=== PATIENT | female | born 1960 | race Caucasian/White ===

== ENCOUNTER 2016-08-14 17:18 | Inpatient (IN) | payer BC ==
[~2016-08-14] VITALS: Ht 172.7 cm; Wt 65.7 kg
[~2016-08-14 17:18] MED LIST: CIPR-255 PO; CLIN300C10 PO; VANC1CAP19 PO
[2016-08-14] MEDS ORDERED: SODIUM CHLORIDE 0.9% 1000ML 1,000 ML IV STA (17:36)
[2016-08-14 18:17] LABS: BASO % 0.1 %; BASO ABS # 0.02 K/uL (0-0.2); COMPLETE YES; EOS % 0.3 %; HEMATOCRIT 37.6 % (37-47); IG% 0.2 %; LYMPH % 8.9 %; LYMPH ABS # 1.55 K/uL (1.2-3.4); MEAN CELL VOLUME 88.3 fL (80-100); MEAN CORPUSCULAR HEMOGLOBIN 30.3 pg (25-34); MEAN CORPUSCULAR HGB CONC 34.3 g/dl (32-36); MEAN PLATELET VOLUME 8.7 fL (7.4-10.4); MONO % 7.9 %; NEUT % 82.6 %; PLATELET COUNT 293 K/uL (130-400); RED BLOOD COUNT 4.26 M/uL (4.2-5.4); WHITE BLOOD COUNT 17.34 K/uL (4.8-10.8)
[2016-08-14 18:24] LABS: URINE APPEARANCE CLEAR (CLEAR); URINE BILIRUBIN NEG (NEG); URINE COLOR YELLOW; URINE EPITHELIAL CELL AUTO 0-5 /lpf (0-5); URINE NITRITE NEG (NEG); URINE SPECIFIC GRAVITY 1.007 (1.000-1.030); UROBILINOGEN NEG (NEG); ZZUR CULT IF INDIC CLEAN CATCH NO
[2016-08-14 18:36] LABS: MANUAL MICROSCOPIC REQUIRED? NO; REVIEW REQ? NO
[2016-08-14 18:36] LABS: CREATININE 0.73 mg/dl (0.60-1.20); POTASSIUM 3.4 mmol/L (3.5-5.1)
[2016-08-14] MEDS ORDERED: ERTAPENEM 1 GM ADDVIAL IV ONE (20:15)
[2016-08-14] MEDS ORDERED: MoRPHine SULFATE 4 MG/ML 1 ML CARP\\VIAL IV PRN (21:15)
[2016-08-14] MEDS ORDERED: ONDANSETRON INJ 2 MG/ML 2 ML VIAL IV PRN (21:15)
[2016-08-14 21:33] VITALS: O2SAT 99; Ht 172.7 cm; Wt 65.7 kg
--- NOTE | 2016-08-14 21:57 | History and Physical ---
History & Physical Date & Time of Service: Aug 14, 2016 at 21:43 Chief Complaint: Abdominal Pain:Doc Sent To Er Primary Care Physician: Ada Lynch DO History of Present Illness Source: patient 55 y/o F w/Hx recurrent sigmoid diverticulitis, C-diff colitis - presents with one day of LLQ abdominal pain associated with loose stool. Denies hematochezia. Denies N/V or fevers. Last admitted with diverticulitis in 2014. Last episode of C-diff was in 2011 and believes this may have been related to Cipro use. Past Medical/Surgical History Medical Problems: (1) Acute urinary tract infection Status: Resolved (2) Diverticulitis 3) C-diff colitis Family History No pertinent family history Social History Smoking Status: Former Smoker Marital Status: Housing status: lives with family Occupational Status: employed Immunizations History of Influenza Vaccine: No History of Tetanus Vaccine?: Yes History of Pneumococcal: No History of Hepatitis B Vaccine: No Multi-Drug Resistant Organisms History of MDRO: No Allergies Coded Allergies: Iodinated Diagnostic Agents (Verified Allergy, Unknown, ACHY,NAUSEA,WEAK, 07/17/15) Penicillins (Verified Allergy, Unknown, 07/17/15) Ciprofloxacin (Verified Adverse Reaction, Intermediate, "GET C DIFF IMMEDIATELY", 08/14/16) Metronidazole (Verified Adverse Reaction, Intermediate, "PHYSICALLY UNCOMFORTABLE", 08/14/16) Home Medications No Active Prescriptions or Reported Meds Review of Systems Constitutional: No chills, No fever, No sweats Eyes: No eye pain, No worsening of vision ENT: No hearing loss, No nasal symptoms, No unusual epistaxis Respiratory: No cough, No sputum, No wheezing Cardiovascular: No PND, No chest pain, No orthopnea Abdomen: + diarrhea, + pain, No nausea, No vomiting Musculoskeletal: No joint pain, No muscle pain Genitourinary - Female: No dysuria, No urinary frequency, No urinary urgency Neurologic: No memory loss, No paralysis, No weakness Psychiatric: No depression symptoms Endocrine: No fatigue Hematologic / Lymphatic: No abnormal bleeding/bruising Integumentary: No rash Allergic / Immunologic: No environmental allergies Physical Exam Vital Signs Date Time Temp Pulse Resp B/P Pulse Ox O2 Delivery O2 Flow Rate FiO2 08/14/16 21:33 99 Room Air 08/14/16 20:39 78 18 106/63 97 Room Air 08/14/16 17:26 37.1 99 20 94/59 96 Room Air General Appearance: WD/WN, no apparent distress Head: normocephalic, atraumatic Eyes: normal inspection, EOMI ENT: normal ENT inspection, hearing grossly normal, TMs normal, pharynx normal Neck: supple, no JVD Respiratory/Chest: chest non-tender, lungs clear, normal breath sounds, no respiratory distress, no accessory muscle use Cardiovascular: regular rate, rhythm, no edema, no gallop, no JVD, no murmur, normal peripheral pulses Abdomen/GI: normal bowel sounds, soft, + tenderness (LLQ) Back: normal inspection, no CVA tenderness Extremities/Musculoskelatal: normal inspection, no calf tenderness, normal capillary refill, no pedal edema, normal range of motion 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, no motor/sensory deficits, alert, normal mood/affect, normal reflexes, oriented x 3 Skin: normal color, warm/dry, no rash Diagnostics Laboratory Results Results Past 24 Hours Test 08/14/16 17:55 08/14/16 17:59 08/14/16 21:41 Range/Units Urine Color YELLOW Urine Appearance CLEAR CLEAR Urine pH 6.0 4.5-7.5 Urine Specific [place] 1.007 1.000-1.030 Urine Protein NEG NEG Urine Glucose (UA) NEG NEG Urine Ketones NEG NEG Urine Occult Blood 2+ NEG Urine Nitrite NEG NEG Urine Bilirubin NEG NEG Urine Urobilinogen NEG NEG Urine Leukocyte Esterase TRACE NEG Urine WBC (Auto) 1-5 0-5 /hpf Urine RBC (Auto) 5-10 0-4 /hpf Urine Hyaline Casts (Auto) 0 0-5 /lpf Urine Epithelial Cells (Auto) 0-5 0-5 /lpf Urine Bacteria (Auto) NEG NEG Urine Test NEG NEG White Blood Count 17.34 4.8-10.8 K/uL Red Blood Count 4.26 4.2-5.4 M/uL Hemoglobin 12.9 12.0-16.0 g/dL Hematocrit 37.6 37-47 % Mean Corpuscular Volume 88.3 80-100 fL Mean Corpuscular Hemoglobin 30.3 25-34 pg Mean Corpuscular Hemoglobin Concent 34.3 32-36 g/dl Platelet Count 293 130-400 K/uL Mean Platelet Volume 8.7 7.4-10.4 fL Neutrophils (%) (Auto) 82.6 % Lymphocytes (%) (Auto) 8.9 % Monocytes (%) (Auto) 7.9 % Eosinophils (%) (Auto) 0.3 % Basophils (%) (Auto) 0.1 % Neutrophils # (Auto) 14.31 1.4-6.5 K/uL Lymphocytes # (Auto) 1.55 1.2-3.4 K/uL Monocytes # (Auto) 1.37 0.11-0.59 K/uL Eosinophils # (Auto) 0.05 0-0.5 K/uL Basophils # (Auto) 0.02 0-0.2 K/uL RDW Standard Deviation 41.2 36.4-46.3 fL RDW Coefficient of Variation 12.8 11.5-14.5 % Immature Granulocyte % (Auto) 0.2 % Immature Granulocyte # (Auto) 0.04 0.00-0.02 K/uL Sodium Level 136 136-145 mmol/L Potassium Level 3.4 3.5-5.1 mmol/L Chloride Level 99 98-107 mmol/L Carbon Dioxide Level 25 21-32 mmol/L Anion Gap 12.0 3-11 mmol/L Blood Urea Nitrogen 15 7-18 mg/dl Creatinine 0.73 0.60-1.20 mg/dl Est Creatinine Clear Calc Drug Dose 88.8 ml/min Estimated GFR () 108.2 Estimated GFR (Non- 93.4 BUN/Creatinine Ratio 20.0 10-20 Random Glucose 115 70-99 mg/dl Calcium Level 9.0 8.5-10.1 mg/dl Total Bilirubin 0.7 0.2-1 mg/dl Direct Bilirubin 0.2 0-0.2 mg/dl Aspartate Amino Transf (AST/SGOT) 18 15-37 U/L Alanine Aminotransferase (ALT/SGPT) 12 12-78 U/L Alkaline Phosphatase 73 45-117 U/L Total Protein 7.6 6.4-8.2 gm/dl Albumin 3.9 3.4-5.0 gm/dl Lipase 177 73-393 U/L Microbiology Results 08/14/16 C.difficile Toxin B Gene (PCR), Received Pending Diagnostic Radiology CT abdomen : Sigmoid diverticulitis Impression Assessment and Plan 55 y/o F w/Hx recurrent sigmoid diverticulitis, C-diff colitis - presents with one day of LLQ abdominal pain associated with loose stool. Denies hematochezia. Denies N/V or fevers. CT reveals Sigmoid diverticulitis. Pt does not tolerate Flagyl and may have developed C-diff due to Cipro use previously although she is not likely allergic - she also has a PCN allergy. Due to her multiple drug sensitivities she is admitted for IV Ertapenem. We will consult surgery as this is a 3rd recurrence fo diverticulitis. If she improves clinically and intervention is not indicated D/C with Bactrim is an option. NPO pending surgery consult. Full code - Heparin prophylaxis Total time for this admit including review of records, meds, imaging - discussion with ER MD and pt - 30 min Level of Care Med/Surg Advanced Directives Existing Advance Directive: No Existing Living Will: No Existing Power of Telecommunications Professional: No Resuscitation Status FULL RESUSCITATION VTE Prophylaxis VTE Risk Assessment Done? Y/N: Yes Risk Level: Low Given or contraindicated: Unfractionated heparin SQ
[2016-08-14 22:10] VITALS: BP 110/77; PULSE 92; TEMP 37.2; O2SAT 99
[2016-08-14] MEDS ORDERED: POTASSIUM CHLR 10 MEQ / WTR 10 MEQ in PREMIXED WATER 100 ML IV ONE (22:30)
[2016-08-14] MEDS: D5NSS + 20MEQ KCL 1,000 ML IV SCH (22:36)
[2016-08-14 22:41] LABS: PARTIAL THROMBOPLASTIN RATIO 1.2; PROTHROMBIN TIME (PATIENT) 10.9 SECONDS (9.0-12.0)
[2016-08-14 23:00] VITALS: BP 113/75; PULSE 92; TEMP 37.3; O2SAT 98
--- NOTE | 2016-08-15 01:22 | EMERGENCY ROOM VISIT NOTE ---
History Report prepared by Ruma: Daniel Tse Under the Supervision of: Dr. Damir Gaines D.O. First contact with patient: 17:30 Chief Complaint: ABDOMINAL PAIN Stated Complaint: ABDOMINAL PAIN:DOC SENT TO ER History of Present Illness The patient is a 55 year old female who presents to the Emergency Room with complaints of waxing and waning lower abdominal pain beginning one day prior to arrival. She currently rates her discomfort as a 6/10 in severity. The patient associates clear mucus in her stool with today's symptoms. She states her last bowel movement was a few hours ago, which consisted of light colored stool and clear mucus. The patient notes her last normal bowel movement was yesterday. She states she has a history of diverticulitis and colitis. The patient notes her symptoms today are similar to her episodes of diverticulitis and colitis. She states she was last treated for C. Diff in 2011. The patient notes she has a history an appendectomy. She denies recent antibiotic use. Pt denies headache , change in vision, fevers, chest pain, shortness of breath, nausea, vomiting, diarrhea, pain with urination, abnormal vaginal bleeding or discharge, and melena. It is noted the patient has a systolic blood pressure of 83 to 110 from previous records. 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 Review of Systems See HPI for pertinent positives & negatives. A total of 10 systems reviewed and were otherwise negative. Past Medical & Surgical Medical Problems: (1) Acute urinary tract infection (2) Diverticulitis Family History No pertinent family history Social History Smoking Status: Former Smoker Alcohol Use: none Marital Status: Occupation Status: employed Current/Historical Medications No Active Prescriptions or Reported Meds Allergies Coded Allergies: Iodinated Diagnostic Agents (Verified Allergy, Unknown, ACHY,NAUSEA,WEAK, 07/17/15) Penicillins (Verified Allergy, Unknown, 07/17/15) Ciprofloxacin (Verified Adverse Reaction, Intermediate, "GET C DIFF IMMEDIATELY", 08/14/16) Metronidazole (Verified Adverse Reaction, Intermediate, "PHYSICALLY UNCOMFORTABLE", 08/14/16) Physical Exam Vital Signs Date Time Temp Pulse Resp B/P Pulse Ox O2 Delivery O2 Flow Rate FiO2 08/14/16 20:39 78 18 106/63 97 Room Air 08/14/16 17:26 37.1 99 20 94/59 96 Room Air Physical Exam GENERAL: sitting up in bed, no acute distress, non-toxic EYE EXAM: normal conjunctiva OROPHARYNX: no exudate, no erythema, lips, buccal mucosa, and tongue normal and mucous membranes are moist NECK: supple, no nuchal rigidity, no adenopathy, non-tender LUNGS: Clear to auscultation. Normal chest wall mechanics HEART: no murmurs, S1 normal and S2 normal ABDOMEN: Tenderness to palpation in the infraumbilical region. Abdomen soft, normo-active bowel sounds, no masses, no rebound or guarding. BACK: Back is symmetrical on inspection and there is no deformity, no midline tenderness, no CVA tenderness. SKIN: no rashes and no bruising UPPER EXTREMITIES: upper extremities are grossly normal. LOWER EXTREMITIES: No pitting edema. NEURO EXAM: Normal sensorium, cranial nerves II-XII grossly intact, normal speech, no gross weakness of arms, no gross weakness of legs. Medical Decision & Procedures ER Provider Diagnostic Interpretation: CT ABDOMEN & PELVIS Revealed acute diverticulitis. Laboratory Results 08/14/16 17:59 Red Blood Count 4.26, Mean Corpuscular Volume 88.3, Mean Corpuscular Hemoglobin 30.3, Mean Corpuscular Hemoglobin Concent 34.3, Mean Platelet Volume 8.7, Neutrophils (%) (Auto) 82.6, Lymphocytes (%) (Auto) 8.9, Monocytes (%) (Auto) 7.9, Eosinophils (%) (Auto) 0.3, Basophils (%) (Auto) 0.1, Neutrophils # (Auto) 14.31, Lymphocytes # (Auto) 1.55, Monocytes # (Auto) 1.37, Eosinophils # (Auto) 0.05, Basophils # (Auto) 0.02 08/14/16 17:59 Test 08/14/16 17:55 08/14/16 17:59 Urine Color YELLOW Urine Appearance CLEAR (CLEAR) Urine pH 6.0 (4.5-7.5) Urine Specific [place] 1.007 (1.000-1.030) Urine Protein NEG (NEG) Urine Glucose (UA) NEG (NEG) Urine Ketones NEG (NEG) Urine Occult Blood 2+ (NEG) Urine Nitrite NEG (NEG) Urine Bilirubin NEG (NEG) Urine Urobilinogen NEG (NEG) Urine Leukocyte Esterase TRACE (NEG) Urine WBC (Auto) 1-5 /hpf (0-5) Urine RBC (Auto) 5-10 /hpf (0-4) Urine Hyaline Casts (Auto) 0 /lpf (0-5) Urine Epithelial Cells (Auto) 0-5 /lpf (0-5) Urine Bacteria (Auto) NEG (NEG) Urine Test NEG (NEG) White Blood Count 17.34 K/uL (4.8-10.8) Red Blood Count 4.26 M/uL (4.2-5.4) Hemoglobin 12.9 g/dL (12.0-16.0) Hematocrit 37.6 % (37-47) Mean Corpuscular Volume 88.3 fL (80-100) Mean Corpuscular Hemoglobin 30.3 pg (25-34) Mean Corpuscular Hemoglobin Concent 34.3 g/dl (32-36) Platelet Count 293 K/uL (130-400) Mean Platelet Volume 8.7 fL (7.4-10.4) Neutrophils (%) (Auto) 82.6 % Lymphocytes (%) (Auto) 8.9 % Monocytes (%) (Auto) 7.9 % Eosinophils (%) (Auto) 0.3 % Basophils (%) (Auto) 0.1 % Neutrophils # (Auto) 14.31 K/uL (1.4-6.5) Lymphocytes # (Auto) 1.55 K/uL (1.2-3.4) Monocytes # (Auto) 1.37 K/uL (0.11-0.59) Eosinophils # (Auto) 0.05 K/uL (0-0.5) Basophils # (Auto) 0.02 K/uL (0-0.2) RDW Standard Deviation 41.2 fL (36.4-46.3) RDW Coefficient of Variation 12.8 % (11.5-14.5) Immature Granulocyte % (Auto) 0.2 % Immature Granulocyte # (Auto) 0.04 K/uL (0.00-0.02) Prothrombin Time 10.9 SECONDS (9.0-12.0) Prothromb Time International Ratio 1.0 (0.9-1.1) Activated Partial Thromboplast Time 32.4 SECONDS (21.0-31.0) Partial Thromboplastin Ratio 1.2 Anion Gap 12.0 mmol/L (3-11) Est Creatinine Clear Calc Drug Dose 88.8 ml/min Estimated GFR () 108.2 Estimated GFR (Non- 93.4 BUN/Creatinine Ratio 20.0 (10-20) Calcium Level 9.0 mg/dl (8.5-10.1) Total Bilirubin 0.7 mg/dl (0.2-1) Direct Bilirubin 0.2 mg/dl (0-0.2) Aspartate Amino Transf (AST/SGOT) 18 U/L (15-37) Alanine Aminotransferase (ALT/SGPT) 12 U/L (12-78) Alkaline Phosphatase 73 U/L (45-117) Total Protein 7.6 gm/dl (6.4-8.2) Albumin 3.9 gm/dl (3.4-5.0) Lipase 177 U/L (73-393) Hepatitis C Antibody Screen NEG (NEG) Date/Time Source Procedure Growth Status 08/14/16 17:55 Stool C.difficile Toxin B Gene (PCR) - Final No C. difficile toxin B gene detected Complete Laboratory results per my review. Medications Administered Medications (Trade) Dose Ordered Sig/Jovan Route Start Time Stop Time Status Last Admin Dose Admin Sodium Chloride (Nss 1000ml) 1,000 ml @ 999 mls/hr Q1H1M STAT IV 08/14/16 17:36 08/14/16 18:36 DC 08/14/16 17:57 999 MLS/HR Ertapenem (Invanz Iv) 1 gm ONE ONCE IV 08/14/16 20:15 08/14/16 20:16 DC 08/14/16 20:32 1 GM ED Course ED COURSE: Vital signs were reviewed and showed hypertension. The patients medical record was reviewed The above diagnostic studies were performed and reviewed. ED treatments and interventions as stated above. 1734: The patient was evaluated in room C2B. A complete history and physical examination was performed. 1735: Ordered Sodium Chloride 1,000 ml @ 999 mls/hr IV. 1927: Reevaluated the patient at this time, and she is doing well. 1954: Reevaluated the patient and updater her. 2012: I spoke to Dr. Cook [facility] [place] (Infectious Disease) about the patient's case, and he recommended gicing the patient 1 gm Ertapenem. 2015: Ordered Ertapenem 1 gm IV. 2016: I spoke to ARTI Galarza (Hospitalist) about the patient's case, and he will follow the patient for further evaluation. 2018: Upon reevaluation, the patient is doing well.I discussed my findings with the patient and she understands and agrees with the treatment plan. Based on the patients age, coexisting illnesses, exam and lab findings the decision to treat as an inpatient was made. The patient remained stable while under my care. The patient will be evaluated for further management. Medical Decision Differential diagnoses includes but is not limited to gastritis, peptic ulcer disease, GERD, gallbladder disease, pancreatitis, small bowel obstruction, acute coronary syndrome, pericarditis, ischemic bowel, irritable bowel disease, irritable bowel syndrome, appendicitis, diverticulitis, malignancy, hernia, urinary tract infection, torsion, /ectopic , perforation, trauma, infectious. Patient is a 55 -year-old female who presents the ER for lower abdominal pain associated with nausea. Last bowel movement was earlier today. She has a history of colitis and C. difficile. No recent antibiotics. On abdominal examination does have tenderness in left lower quadrant. No significant fever. She is a leukocytosis of 17,000. BMP along with LFTs, bilirubin and lipase was unremarkable. UA was unremarkable. Urine was negative. CT of her abdomen pelvis shows acute diverticulitis. She notes that when she takes Cipro she gets C. difficile. She is unable to take Flagyl as his feet makes her very depressed and gives her an upset stomach. She also gets hives and penicillins. Following this I discussed case with ID who recommended ertapenem. I reviewed her chart and she was previously discharged on Cipro and Bactrim this was for colitis which appear to be more secondary to C. difficile. Based on the findings follow was reasonable for IV antibiotics overnight to make sure she is improving and further evaluation by infectious disease for appropriate antibiotic therapy as an outpatient. Consults Time Called: 2011 Consulting Physician: ARTI Barba (Infectious Disease) Returned Call: 2012 I spoke to ARTI Barba (Infectious Disease) about the patient's case, and he recommended gicing the patient 1 gm Ertapenem. Additional Consults: Time Called: 2014 Consulted Physician: ARTI Galarza (Hospitalist) Returned Call: 2015 Additional Comments: I spoke to ARTI Galarza (Hospitalist) about the patient's case, and he will follow the patient for further evaluation. Impression Primary Impression: Acute diverticulitis Scribe Attestation The scribe's documentation has been prepared under my direction and personally reviewed by me in its entirety. I confirm that the note above accurately reflects all work, treatment, procedures, and medical decision making performed by me. Departure Information Dispostion Being Evaluated By Hospitalist (ARTI Galarza (Hospitalist)) Prescriptions No Active Prescriptions or Reported Meds Referrals No Doctor, Assigned (PCP)
[2016-08-15] MEDS: D5NSS + 20MEQ KCL 1,000 ML IV SCH (06:01)
[2016-08-15] MEDS: HEPARIN SOD 5000 UNIT/0.5 ML CARP SQ SCH ×3 (06:03→21:40)
[2016-08-15 06:59] LABS: MEAN CELL VOLUME 88.2 fL (80-100); MEAN CORPUSCULAR HEMOGLOBIN 29.9 pg (25-34); MEAN CORPUSCULAR HGB CONC 33.9 g/dl (32-36); MEAN PLATELET VOLUME 8.7 fL (7.4-10.4); PLATELET COUNT 221 K/uL (130-400); RED BLOOD COUNT 3.74 M/uL (4.2-5.4); WHITE BLOOD COUNT 11.37 K/uL (4.8-10.8)
[2016-08-15 07:34] LABS: BUN/CREATININE RATIO 14.9 (10-20); CALCIUM 8.6 mg/dl (8.5-10.1); CREATININE 0.59 mg/dl (0.60-1.20); MAGNESIUM 2.2 mg/dl (1.8-2.4)
[2016-08-15 07:58] VITALS: BP 117/64; PULSE 79; TEMP 36.8; O2SAT 92
--- NOTE | 2016-08-15 07:59 | DIAGNOSTIC IMAGING REPORT ---
CT SCAN OF THE ABDOMEN AND PELVIS WITHOUT IV CONTRAST CLINICAL HISTORY: Lower abdominal pain. COMPARISON STUDY: Abdominal CT dated 07/17/2015. TECHNIQUE: CT scan of the abdomen and pelvis is performed from the lung bases to the proximal femora. Images are reviewed in the axial, sagittal, and coronal planes. IV contrast was not administered for this examination as per the referring clinician due to a reported history of contrast allergy. Note that the examination is suboptimal without oral and IV contrast. Automated dose control exposure was utilized. CT DOSE: 376.59 mGy.cm FINDINGS: Lung bases: The heart is normal in size and there is a moderate pericardial effusion. The lung bases are clear noting dependent atelectasis. Liver: The unenhanced liver is normal in size, contour, and attenuation. There is no intrahepatic biliary ductal dilatation. Gallbladder: Contracted. Spleen: Normal in size and attenuation. Pancreas: Unremarkable. Adrenal glands: Unremarkable. Kidneys: The unenhanced kidneys are normal in size and without hydronephrosis. There are small bilateral extrarenal pelvises. There are no renal calculi identified. There is no evidence of contour deforming renal mass lesion. Abdominal vasculature: The abdominal aorta is normal in course and caliber. Bowel: The small bowel and colon are normal in course and caliber. There is moderate sigmoid diverticulosis. There is wall thickening with pericolonic inflammation and fluid seen around the sigmoid colon in the left pelvis consistent with acute sigmoid diverticulitis. There is no clear evidence of diverticular abscess. Mild to moderate fecal retention is seen throughout the colon. The appendix is not identified and reported surgically absent. Peritoneum: There is no intraperitoneal free air. There is a small volume of minimally complex fluid in the cul-de-sac. Lymphadenopathy: None. Pelvic viscera: The bladder, uterus, and adnexa are normal as visualized. Skeletal structures: The skeletal structures are osteopenic. There is mild lumbosacral spondylosis. No lytic or blastic lesions are seen. IMPRESSION: 1. Findings are consistent with acute diverticulitis of the sigmoid colon. No intraperitoneal free air is seen and there is no evidence of organized abscess on this unenhanced examination. 2. There is a small volume of minimally complex fluid in the pelvis, likely on a reactive basis. 3. Moderate pericardial effusion, similar to the 07/17/2015 examination. 4. Additional findings as above. Electronically signed by: Sudhir Melchor M.D. 08/14/2016 6:34 PM Dictated Date/Time: 08/14/2016 6:28 PM
[2016-08-15 09:03] VITALS: O2SAT 92
--- NOTE | 2016-08-15 09:23 | History and Physical ---
History & Physical Date & Time of Service: Aug 15, 2016 at 09:18 Chief Complaint: Diverticulitis Primary Care Physician: Ada Lynch DO History of Present Illness Source: patient pt is a 55 y/o Female w/Hx recurrent sigmoid diverticulitis, C-diff colitis - presents with one day of LLQ abdominal pain associated with loose stool. Denies hematochezia. Denies N/V or fevers. Last admitted with diverticulitis in 2014. Last episode of C-diff was in 2011 and believes this may have been related to Cipro use. now pt feels better, no N/ V, some LLQ pain, passed gas,no diarrhea. no fever. pt had colonoscopy and polypectomy in 2014, Past Medical/Surgical History Medical Problems: (1) Acute urinary tract infection Status: Resolved (2) Diverticulitis Status: Chronic Family History No pertinent family history Social History Smoking Status: Never Smoker Smokeless Tobacco Use: No Alcohol Use: occasionally Drug Use: none Marital Status: Housing status: lives with family Occupational Status: employed Immunizations History of Influenza Vaccine: No History of Tetanus Vaccine?: Yes History of Pneumococcal: No History of Hepatitis B Vaccine: No Multi-Drug Resistant Organisms History of MDRO: No Allergies Coded Allergies: Iodinated Diagnostic Agents (Verified Allergy, Unknown, ACHY,NAUSEA,WEAK, 07/17/15) Penicillins (Verified Allergy, Unknown, 07/17/15) Ciprofloxacin (Verified Adverse Reaction, Intermediate, "GET C DIFF IMMEDIATELY", 08/14/16) Metronidazole (Verified Adverse Reaction, Intermediate, "PHYSICALLY UNCOMFORTABLE", 08/14/16) Home Medications No Active Prescriptions or Reported Meds Review of Systems Constitutional: No chills, No fatigue, No fever, No problem reported, No sweats , No weakness, No weight loss Eyes: No diplopia, No discharge, No eye pain, No problem reported, No redness, No worsening of vision ENT: No dental problems, No hearing loss, No nasal symptoms, No problem reported, No sore throat, No tinnitus, No trouble swallowing, No unusual epistaxis Respiratory: No cough, No dyspnea at rest, No dyspnea on exertion, No hemoptysis, No problem reported, No shortness of breath, No sputum, No wheezing Cardiovascular: No PND, No chest pain, No claudication, No edema, No orthopnea , No palpitations, No problem reported Abdomen: + pain Neurologic: No balance problems, No memory loss, No numbness/tingling, No paralysis, No problem reported, No vertigo, No weakness Psychiatric: No anhedonism, No anxiety, No depression symptoms, No insomnia, No problem reported, No substance abuse Endocrine: No excessive thirst, No excessive urination, No fatigue, No problem reported Physical Exam Vital Signs Date Time Temp Pulse Resp B/P Pulse Ox O2 Delivery O2 Flow Rate FiO2 08/15/16 09:03 92 Room Air 08/15/16 07:58 36.8 79 17 117/64 92 Room Air 08/15/16 07:30 Room Air 08/15/16 03:26 Room Air 08/14/16 23:00 37.3 92 16 113/75 98 Room Air 08/14/16 22:10 37.2 92 16 110/77 99 Room Air 08/14/16 22:06 90 18 119/79 99 08/14/16 21:33 99 Room Air 08/14/16 20:39 78 18 106/63 97 Room Air 08/14/16 17:26 37.1 99 20 94/59 96 Room Air General Appearance: WD/WN, no apparent distress Head: normocephalic, atraumatic Eyes: normal inspection, EOMI ENT: normal ENT inspection, hearing grossly normal, TMs normal, pharynx normal Neck: supple, no JVD Respiratory/Chest: chest non-tender, lungs clear, normal breath sounds, no respiratory distress, no accessory muscle use Cardiovascular: regular rate, rhythm, no edema, no gallop, no JVD, no murmur, normal peripheral pulses Abdomen/GI: normal bowel sounds, soft, + tenderness (LLQ) Back: normal inspection, no CVA tenderness Extremities/Musculoskelatal: normal inspection, no calf tenderness, normal capillary refill, no pedal edema, normal range of motion 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, no motor/sensory deficits, alert, normal mood/affect, normal reflexes, oriented x 3 Skin: normal color, warm/dry, no rash Diagnostics Laboratory Results Results Past 24 Hours Test 08/14/16 17:55 08/14/16 17:59 08/15/16 06:35 Range/Units Urine Color YELLOW Urine Appearance CLEAR CLEAR Urine pH 6.0 4.5-7.5 Urine Specific [place] 1.007 1.000-1.030 Urine Protein NEG NEG Urine Glucose (UA) NEG NEG Urine Ketones NEG NEG Urine Occult Blood 2+ NEG Urine Nitrite NEG NEG Urine Bilirubin NEG NEG Urine Urobilinogen NEG NEG Urine Leukocyte Esterase TRACE NEG Urine WBC (Auto) 1-5 0-5 /hpf Urine RBC (Auto) 5-10 0-4 /hpf Urine Hyaline Casts (Auto) 0 0-5 /lpf Urine Epithelial Cells (Auto) 0-5 0-5 /lpf Urine Bacteria (Auto) NEG NEG Urine Test NEG NEG White Blood Count 17.34 11.37 4.8-10.8 K/uL Red Blood Count 4.26 3.74 4.2-5.4 M/uL Hemoglobin 12.9 11.2 12.0-16.0 g/dL Hematocrit 37.6 33.0 37-47 % Mean Corpuscular Volume 88.3 88.2 80-100 fL Mean Corpuscular Hemoglobin 30.3 29.9 25-34 pg Mean Corpuscular Hemoglobin Concent 34.3 33.9 32-36 g/dl Platelet Count 293 221 130-400 K/uL Mean Platelet Volume 8.7 8.7 7.4-10.4 fL Neutrophils (%) (Auto) 82.6 % Lymphocytes (%) (Auto) 8.9 % Monocytes (%) (Auto) 7.9 % Eosinophils (%) (Auto) 0.3 % Basophils (%) (Auto) 0.1 % Neutrophils # (Auto) 14.31 1.4-6.5 K/uL Lymphocytes # (Auto) 1.55 1.2-3.4 K/uL Monocytes # (Auto) 1.37 0.11-0.59 K/uL Eosinophils # (Auto) 0.05 0-0.5 K/uL Basophils # (Auto) 0.02 0-0.2 K/uL RDW Standard Deviation 41.2 41.6 36.4-46.3 fL RDW Coefficient of Variation 12.8 12.8 11.5-14.5 % Immature Granulocyte % (Auto) 0.2 % Immature Granulocyte # (Auto) 0.04 0.00-0.02 K/uL Prothrombin Time 10.9 9.0-12.0 SECONDS Prothromb Time International Ratio 1.0 0.9-1.1 Activated Partial Thromboplast Time 32.4 21.0-31.0 SECONDS Partial Thromboplastin Ratio 1.2 Sodium Level 136 142 136-145 mmol/L Potassium Level 3.4 4.0 3.5-5.1 mmol/L Chloride Level 99 109 98-107 mmol/L Carbon Dioxide Level 25 23 21-32 mmol/L Anion Gap 12.0 10.0 3-11 mmol/L Blood Urea Nitrogen 15 9 7-18 mg/dl Creatinine 0.73 0.59 0.60-1.20 mg/dl Est Creatinine Clear Calc Drug Dose 88.8 109.9 ml/min Estimated GFR () 108.2 120.4 Estimated GFR (Non- 93.4 103.9 BUN/Creatinine Ratio 20.0 14.9 10-20 Random Glucose 115 100 70-99 mg/dl Calcium Level 9.0 8.6 8.5-10.1 mg/dl Total Bilirubin 0.7 0.2-1 mg/dl Direct Bilirubin 0.2 0-0.2 mg/dl Aspartate Amino Transf (AST/SGOT) 18 15-37 U/L Alanine Aminotransferase (ALT/SGPT) 12 12-78 U/L Alkaline Phosphatase 73 45-117 U/L Total Protein 7.6 6.4-8.2 gm/dl Albumin 3.9 3.4-5.0 gm/dl Lipase 177 73-393 U/L Hepatitis C Antibody Screen NEG NEG Magnesium Level 2.2 1.8-2.4 mg/dl Microbiology Results 08/14/16 C.difficile Toxin B Gene (PCR) - Final, Complete No C. difficile toxin B gene detected Diagnostic Radiology IMPRESSION: 1. Findings are consistent with acute diverticulitis of the sigmoid colon. No intraperitoneal free air is seen and there is no evidence of organized abscess on this unenhanced examination. 2. There is a small volume of minimally complex fluid in the pelvis, likely on a reactive basis. 3. Moderate pericardial effusion, similar to the 07/17/2015 examination. 4. Additional findings as above. Impression Assessment and Plan IMP diverticulitis, uncomplicated. Plan, conservative treatment, iv fluid, iv antibiotic, npo, repeat labs in AM, may change antibiotic to zosyn 3.375gm iv q6h. Will F/U now no indication for surgery, may do elective surgery ( resection of sigmoid colon, if pt wants to do in the future, pt understood, I answered all questions, Advanced Directives Existing Advance Directive: No Existing Living Will: No Existing Power of Signs Cleaner: No VTE Prophylaxis VTE Risk Assessment Done? Y/N: Yes Risk Level: Low Given or contraindicated: Unfractionated heparin SQ
[2016-08-15] MEDS: METRONIDAZOLE / NSS 500 MG in PREMIXED NSS 100 ML IV SCH ×2 (13:47→21:38)
[2016-08-15] MEDS: CIPROFLOXACIN / D5W 400 MG in PREMIXED IN D5W 200 ML IV SCH (13:47)
[2016-08-15] MEDS ORDERED: ERTAPENEM IV 1 GM in SODIUM CHLOR 0.9% AD-VAN 50ML 50 ML IV SCH ×2 (14:00→20:00)
[2016-08-15 15:09] VITALS: BP 111/75; PULSE 82; TEMP 36.8; O2SAT 96
--- NOTE | 2016-08-15 17:34 | Progress Note ---
Subjective Date of Service: Aug 15, 2016. Subjective Pt evaluation today including: conversation w/ patient, physical exam, chart review, lab review, review of studies, conversation w/ organizational development consultant, review of inpatient medication list Voiding: no voiding problems Problem List Medical Problems: (1) Acute diverticulitis Status: Acute (2) Colitis Status: Acute (3) Diarrhea Status: Acute (4) Leukocytosis Status: Acute (5) Lower abdominal pain Status: Acute Review of Systems Constitutional: No chills, No fever Eyes: No eye pain, No worsening of vision ENT: No hearing loss, No unusual epistaxis Respiratory: No cough, No shortness of breath, No sputum, No wheezing Cardiac: No chest pain, No orthopnea Abdomen: + pain Musculoskeletal: No joint pain Female : No dysuria Psychiatric: No depression symptoms Endo: No fatigue Skin: No rash Medications Current Inpatient Medications Medications (Trade) Dose Ordered Sig/Jovan Route Start Time Stop Time Status Last Admin Dose Admin Heparin Sodium (Porcine) (Heparin Sq 5000 Unit/0.5ml) 5,000 unit Q8H SQ 08/15/16 06:00 09/14/16 05:59 08/15/16 13:49 5,000 UNIT Ondansetron HCl (Zofran Inj) 4 mg Q6H PRN IV 08/14/16 21:15 09/13/16 21:14 Morphine Sulfate 3 mg 3 mg Q3H PRN IV 08/14/16 21:15 08/28/16 21:14 Ciprofloxacin/ Dextrose 400 mg/ Prmx 200 ml @ 100 mls/hr Q12H IV 08/15/16 13:00 08/25/16 12:59 08/15/16 13:47 100 MLS/HR Metronidazole/Prmx (Flagyl / Nss/ Premixed Nss) 100 ml @ 100 mls/hr Q8H IV 08/15/16 13:00 08/25/16 12:59 08/15/16 13:47 100 MLS/HR Lactobacillus Acidophilus (Floranex Tab) 4 tab TIDM PO 08/15/16 17:45 09/14/16 17:44 Objective Vital Signs Date Time Temp Pulse Resp B/P Pulse Ox O2 Delivery O2 Flow Rate FiO2 08/15/16 15:09 36.8 82 18 111/75 96 Room Air 08/15/16 09:03 92 Room Air 08/15/16 07:58 36.8 79 17 117/64 92 Room Air 08/15/16 07:30 Room Air 08/15/16 03:26 Room Air 08/14/16 23:00 37.3 92 16 113/75 98 Room Air 08/14/16 22:10 37.2 92 16 110/77 99 Room Air 08/14/16 22:06 90 18 119/79 99 08/14/16 21:33 99 Room Air 08/14/16 20:39 78 18 106/63 97 Room Air 08/14/16 17:26 37.1 99 20 94/59 96 Room Air Physical Exam General Appearance: no apparent distress Eyes: normal inspection, PERRL, EOMI ENT: normal ENT inspection, hearing grossly normal, TMs normal, pharynx normal Neck: supple Respiratory/Chest: chest non-tender, lungs clear, normal breath sounds, no respiratory distress, no accessory muscle use Cardiovascular: regular rate, rhythm, no edema, no gallop, no JVD, no murmur Abdomen: soft, + distended, + tenderness Extremities: normal range of motion, non-tender, normal inspection, no pedal edema 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, no motor/sensory deficits, alert, normal mood/affect, oriented x 3 Skin: normal color, warm/dry, no rash Laboratory Results Last 24 Hours Test 08/14/16 17:55 08/14/16 17:59 08/15/16 06:35 Urine Color YELLOW Urine Appearance CLEAR Urine pH 6.0 Urine Specific [place] 1.007 Urine Protein NEG Urine Glucose (UA) NEG Urine Ketones NEG Urine Occult Blood 2+ Urine Nitrite NEG Urine Bilirubin NEG Urine Urobilinogen NEG Urine Leukocyte Esterase TRACE Urine WBC (Auto) 1-5 /hpf Urine RBC (Auto) 5-10 /hpf Urine Hyaline Casts (Auto) 0 /lpf Urine Epithelial Cells (Auto) 0-5 /lpf Urine Bacteria (Auto) NEG Urine Test NEG White Blood Count 17.34 K/uL 11.37 K/uL Red Blood Count 4.26 M/uL 3.74 M/uL Hemoglobin 12.9 g/dL 11.2 g/dL Hematocrit 37.6 % 33.0 % Mean Corpuscular Volume 88.3 fL 88.2 fL Mean Corpuscular Hemoglobin 30.3 pg 29.9 pg Mean Corpuscular Hemoglobin Concent 34.3 g/dl 33.9 g/dl Platelet Count 293 K/uL 221 K/uL Mean Platelet Volume 8.7 fL 8.7 fL Neutrophils (%) (Auto) 82.6 % Lymphocytes (%) (Auto) 8.9 % Monocytes (%) (Auto) 7.9 % Eosinophils (%) (Auto) 0.3 % Basophils (%) (Auto) 0.1 % Neutrophils # (Auto) 14.31 K/uL Lymphocytes # (Auto) 1.55 K/uL Monocytes # (Auto) 1.37 K/uL Eosinophils # (Auto) 0.05 K/uL Basophils # (Auto) 0.02 K/uL RDW Standard Deviation 41.2 fL 41.6 fL RDW Coefficient of Variation 12.8 % 12.8 % Immature Granulocyte % (Auto) 0.2 % Immature Granulocyte # (Auto) 0.04 K/uL Prothrombin Time 10.9 SECONDS Prothromb Time International Ratio 1.0 Activated Partial Thromboplast Time 32.4 SECONDS Partial Thromboplastin Ratio 1.2 Sodium Level 136 mmol/L 142 mmol/L Potassium Level 3.4 mmol/L 4.0 mmol/L Chloride Level 99 mmol/L 109 mmol/L Carbon Dioxide Level 25 mmol/L 23 mmol/L Anion Gap 12.0 mmol/L 10.0 mmol/L Blood Urea Nitrogen 15 mg/dl 9 mg/dl Creatinine 0.73 mg/dl 0.59 mg/dl Est Creatinine Clear Calc Drug Dose 88.8 ml/min 109.9 ml/min Estimated GFR () 108.2 120.4 Estimated GFR (Non- 93.4 103.9 BUN/Creatinine Ratio 20.0 14.9 Random Glucose 115 mg/dl 100 mg/dl Calcium Level 9.0 mg/dl 8.6 mg/dl Total Bilirubin 0.7 mg/dl Direct Bilirubin 0.2 mg/dl Aspartate Amino Transf (AST/SGOT) 18 U/L Alanine Aminotransferase (ALT/SGPT) 12 U/L Alkaline Phosphatase 73 U/L Total Protein 7.6 gm/dl Albumin 3.9 gm/dl Lipase 177 U/L Hepatitis C Antibody Screen NEG Magnesium Level 2.2 mg/dl Assessment and Plan 55 y/o F w/Hx recurrent sigmoid diverticulitis, C-diff colitis - presents with one day of LLQ abdominal pain associated with loose stool. CT reveals Sigmoid diverticulitis. C diff test was negative switch her Abx to cipro / flagyl as per patient her allergy to flagyl is having nausea and nervousness she agreed to try it as it is the protective regimen against c diff WBC count improved Surgery consult appreciated, no intervention at this point can start liquid diet Full code - Heparin prophylaxis
[2016-08-15] MEDS: LACTOBACILLUS ACIDOPHILUS (FLORANEX) TAB PO SCH (18:10)
[2016-08-15] MEDS: SODIUM CHLOR 0.45% + 20MEQ KCL 1,000 ML IV SCH (22:44)
[2016-08-15 22:58] VITALS: BP 105/71; PULSE 71; TEMP 37; O2SAT 94
[2016-08-16] MEDS: CIPROFLOXACIN / D5W 400 MG in PREMIXED IN D5W 200 ML IV SCH (00:30)
[2016-08-16] MEDS ORDERED: NURSING VERBAL MED ORDER ONE ×2 (01:15→08:30)
[2016-08-16] MEDS: METRONIDAZOLE / NSS 500 MG in PREMIXED NSS 100 ML IV SCH ×3 (05:21→20:45)
[2016-08-16] MEDS: HEPARIN SOD 5000 UNIT/0.5 ML CARP SQ SCH ×3 (05:23→21:56)
[2016-08-16 06:01] LABS: BASO % 0.3 %; BASO ABS # 0.02 K/uL (0-0.2); COMPLETE YES; IG% 0.3 %; LYMPH % 25.3 %; LYMPH ABS # 1.91 K/uL (1.2-3.4); MEAN CELL VOLUME 88.8 fL (80-100); MEAN CORPUSCULAR HEMOGLOBIN 30.1 pg (25-34); MEAN CORPUSCULAR HGB CONC 33.9 g/dl (32-36); MEAN PLATELET VOLUME 8.4 fL (7.4-10.4); MONO % 7.5 %; NEUT % 64.6 %; PLATELET COUNT 204 K/uL (130-400); RED BLOOD COUNT 3.49 M/uL (4.2-5.4); WHITE BLOOD COUNT 7.55 K/uL (4.8-10.8)
[2016-08-16 06:26] LABS: BUN/CREATININE RATIO 10.4 (10-20); CALCIUM 8.4 mg/dl (8.5-10.1); CREATININE 0.64 mg/dl (0.60-1.20); MAGNESIUM 2.1 mg/dl (1.8-2.4)
[2016-08-16 06:30] LABS: ALB/GLOB RATIO 0.9 (0.9-2); PHOSPHORUS 3.6 mg/dl (2.5-4.9)
[2016-08-16] MEDS: SODIUM CHLOR 0.45% + 20MEQ KCL 1,000 ML IV SCH ×3 (07:11→21:57)
[2016-08-16 08:00] VITALS: BP 100/62; PULSE 69; TEMP 36.6; O2SAT 94
[2016-08-16] MEDS: LACTOBACILLUS ACIDOPHILUS (FLORANEX) TAB PO SCH ×3 (08:00→17:14)
[2016-08-16] MEDS ORDERED: KETOROLAC TROMETHAMINE 15 MG/ML VIAL IV. PRN (08:30)
--- NOTE | 2016-08-16 10:31 | Progress Note ---
Subjective Date of Service: Aug 16, 2016. Subjective Pt evaluation today including: conversation w/ patient, physical exam, chart review, lab review, review of studies, review of inpatient medication list Problem List Medical Problems: (1) Acute diverticulitis Status: Acute (2) Colitis Status: Acute (3) Diarrhea Status: Acute (4) Leukocytosis Status: Acute (5) Lower abdominal pain Status: Acute Review of Systems Constitutional: No chills, No fever Eyes: No eye pain, No worsening of vision ENT: No hearing loss Respiratory: No cough, No sputum Cardiac: No PND, No chest pain, No claudication, No edema, No orthopnea, No palpitations, No problem reported, No see HPI Abdomen: + pain Musculoskeletal: No calf pain, No joint pain, No muscle pain, No problem reported, No see HPI, No swelling Female : No abnormal vaginal bleeding, No dysuria, No hematuria, No incontinence, No problem reported, No see HPI, No urinary frequency, No vaginal discharge Neurologic: + problem reported (headache) Psychiatric: No anhedonism, No anxiety, No depression symptoms, No insomnia, No problem reported, No see HPI, No substance abuse Endo: No excessive thirst, No excessive urination, No fatigue, No problem reported, No see HPI Medications Current Inpatient Medications Medications (Trade) Dose Ordered Sig/Jovan Route Start Time Stop Time Status Last Admin Dose Admin Heparin Sodium (Porcine) (Heparin Sq 5000 Unit/0.5ml) 5,000 unit Q8H SQ 08/15/16 06:00 09/14/16 05:59 08/16/16 05:23 5,000 UNIT Ondansetron HCl (Zofran Inj) 4 mg Q6H PRN IV 08/14/16 21:15 09/13/16 21:14 Morphine Sulfate 3 mg 3 mg Q3H PRN IV 08/14/16 21:15 08/28/16 21:14 Metronidazole/Prmx (Flagyl / Nss/ Premixed Nss) 100 ml @ 100 mls/hr Q8H IV 08/15/16 13:00 08/25/16 12:59 08/16/16 05:21 100 MLS/HR Lactobacillus Acidophilus 4 tab 4 tab TIDM PO 08/15/16 17:45 09/14/16 17:44 08/16/16 08:00 4 TAB Potassium Chloride/Sodium Chloride (07/30 Nss + 20meq KCl 1000ml) 1,000 ml @ 125 mls/hr Q8H IV 08/15/16 22:30 09/14/16 22:29 08/16/16 07:11 125 MLS/HR Ketorolac Tromethamine (Toradol Inj) 15 mg Q12H PRN IV. 08/16/16 08:30 08/19/16 08:29 08/16/16 08:30 15 MG Objective Vital Signs Date Time Temp Pulse Resp B/P Pulse Ox O2 Delivery O2 Flow Rate FiO2 08/16/16 08:00 36.6 69 16 100/62 94 Room Air 08/16/16 07:15 Room Air 08/15/16 23:50 Room Air 08/15/16 22:58 37.0 71 15 105/71 94 Room Air 08/15/16 15:45 Room Air 08/15/16 15:09 36.8 82 18 111/75 96 Room Air Physical Exam General Appearance: no apparent distress Eyes: normal inspection, PERRL, EOMI ENT: normal ENT inspection, hearing grossly normal, TMs normal Neck: supple Respiratory/Chest: chest non-tender, lungs clear, normal breath sounds, no respiratory distress, no accessory muscle use Cardiovascular: regular rate, rhythm, no edema, no gallop, no JVD, no murmur Abdomen: soft, + tenderness Extremities: normal range of motion, non-tender, normal inspection, no pedal edema 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, no motor/sensory deficits, alert, normal mood/affect, oriented x 3 Skin: normal color, warm/dry, no rash Laboratory Results Last 24 Hours Test 08/16/16 05:48 White Blood Count 7.55 K/uL Red Blood Count 3.49 M/uL Hemoglobin 10.5 g/dL Hematocrit 31.0 % Mean Corpuscular Volume 88.8 fL Mean Corpuscular Hemoglobin 30.1 pg Mean Corpuscular Hemoglobin Concent 33.9 g/dl Platelet Count 204 K/uL Mean Platelet Volume 8.4 fL Neutrophils (%) (Auto) 64.6 % Lymphocytes (%) (Auto) 25.3 % Monocytes (%) (Auto) 7.5 % Eosinophils (%) (Auto) 2.0 % Basophils (%) (Auto) 0.3 % Neutrophils # (Auto) 4.88 K/uL Lymphocytes # (Auto) 1.91 K/uL Monocytes # (Auto) 0.57 K/uL Eosinophils # (Auto) 0.15 K/uL Basophils # (Auto) 0.02 K/uL RDW Standard Deviation 41.8 fL RDW Coefficient of Variation 12.9 % Immature Granulocyte % (Auto) 0.3 % Immature Granulocyte # (Auto) 0.02 K/uL Sodium Level 141 mmol/L Potassium Level 4.0 mmol/L Chloride Level 108 mmol/L Carbon Dioxide Level 25 mmol/L Anion Gap 8.0 mmol/L Blood Urea Nitrogen 7 mg/dl Creatinine 0.64 mg/dl Est Creatinine Clear Calc Drug Dose 101.3 ml/min Estimated GFR () 117.3 Estimated GFR (Non- 101.2 BUN/Creatinine Ratio 10.4 Random Glucose 89 mg/dl Lactic Acid Level 0.4 mmol/L Calcium Level 8.4 mg/dl Phosphorus Level 3.6 mg/dl Magnesium Level 2.1 mg/dl Total Bilirubin 0.6 mg/dl Aspartate Amino Transf (AST/SGOT) 15 U/L Alanine Aminotransferase (ALT/SGPT) 13 U/L Alkaline Phosphatase 55 U/L Total Protein 6.3 gm/dl Albumin 2.9 gm/dl Globulin 3.4 gm/dl Albumin/Globulin Ratio 0.9 Assessment and Plan 55 y/o F w/Hx recurrent sigmoid diverticulitis, C-diff colitis - presents with one day of LLQ abdominal pain associated with loose stool. CT reveals Sigmoid diverticulitis. C diff test was negative switched her Abx to cipro / flagyl over night she had burning sensation in her arm, while getting cipro, it was discontinued by night physician nurses chsnged her IV site and cipro was restarted WBC count improved Surgery consult appreciated, no intervention at this point continue liquid diet Full code - Heparin prophylaxis
[2016-08-16] MEDS: CIPROFLOXACIN 200MG / D5W IV SCH (12:59)
[2016-08-16] MEDS ORDERED: CIPROFLOXACIN / D5W 400 MG in PREMIXED IN D5W 200 ML IV SCH (13:00)
[2016-08-16 15:54] VITALS: BP 99/65; PULSE 68; TEMP 36.7; O2SAT 97
[2016-08-16 23:39] VITALS: BP 95/61; PULSE 72; TEMP 36.6; O2SAT 97
[2016-08-17] MEDS: CIPROFLOXACIN 200MG / D5W IV SCH ×2 (01:11→12:58)
[2016-08-17] MEDS: HEPARIN SOD 5000 UNIT/0.5 ML CARP SQ SCH ×2 (05:32→13:34)
[2016-08-17] MEDS: METRONIDAZOLE / NSS 500 MG in PREMIXED NSS 100 ML IV SCH ×2 (05:33→12:58)
[2016-08-17] MEDS: SODIUM CHLOR 0.45% + 20MEQ KCL 1,000 ML IV SCH (05:35)
[2016-08-17] MEDS: LACTOBACILLUS ACIDOPHILUS (FLORANEX) TAB PO SCH ×2 (07:29→12:04)
[2016-08-17 07:31] LABS: BASO % 0.4 %; BASO ABS # 0.02 K/uL (0-0.2); COMPLETE YES; EOS % 4.3 %; HEMATOCRIT 31.3 % (37-47); IG% 0.2 %; LYMPH % 27.9 %; LYMPH ABS # 1.29 K/uL (1.2-3.4); MEAN CELL VOLUME 88.4 fL (80-100); MEAN CORPUSCULAR HEMOGLOBIN 30.2 pg (25-34); MEAN CORPUSCULAR HGB CONC 34.2 g/dl (32-36); MEAN PLATELET VOLUME 9.1 fL (7.4-10.4); MONO % 7.4 %; NEUT % 59.8 %; PLATELET COUNT 220 K/uL (130-400); RED BLOOD COUNT 3.54 M/uL (4.2-5.4); WHITE BLOOD COUNT 4.62 K/uL (4.8-10.8)
[2016-08-17 07:59] LABS: BUN/CREATININE RATIO 16.4 (10-20); CREATININE 0.69 mg/dl (0.60-1.20); POTASSIUM 4.2 mmol/L (3.5-5.1)
[2016-08-17 08:04] LABS: ALB/GLOB RATIO 0.9 (0.9-2)
[2016-08-17 08:20] VITALS: BP 97/60; PULSE 68; TEMP 36.2; O2SAT 97
[2016-08-17] MEDS ORDERED: CIPR-255 PO ×2 (08:42→09:21)
[2016-08-17] MEDS ORDERED: MRLP17X PO (08:42)
[2016-08-17] MEDS ORDERED: LCTX PO (08:42)
[2016-08-17] MEDS ORDERED: METR500T PO ×2 (08:42→09:21)
--- NOTE | 2016-08-17 08:44 | Discharge Instructions ---
Discharge Instructions Admission Admission Date: Aug 14, 2016 at 21:22 Admission Diagnosis: Diverticulitis. Discharge Care Plan - Problem: Medical Problems: (1) Acute diverticulitis Care Plan - Goal(s): Decrease discomfort Care Plan - Instructions: Activity Recommendations: no limitations Recommended Home Diet: Clear Liquid, High Fiber, Regular VTE Core Measure Inpt VTE Proph given/why not?: Unfractionated heparin SQ Follow Up Follow-Up: follow up with family physician in one week Oneyda Alvarado Recommendations: Call your doctor if: * Temperature above 101 degrees * Pain not relieved by pain medicine ordered * There is increased drainage or redness from any incision * You have any unanswered questions or concerns. Your Doctors Instructions noted above were prepared by provider Caroline Altamirano.
[2016-08-17] MEDS ORDERED: FAMO20TA11 PO (09:21)
--- NOTE | 2016-08-17 09:28 | Discharge Summary ---
Discharge Summary Admission Date: Aug 14, 2016 at 21:22 Discharge Date: Aug 17, 2016 Discharge Disposition: Home Immunizations: Have You Had Influenza Vaccine: No History of Tetanus Vaccine?: Yes History of Pneumococcal: No History of Hepatitis B Vaccine: No Medication Reconciliation New Medications: Ciprofloxacin Hcl (Cipro) 500 Mg Tab 500 MG PO BID for 4 Days, #8 TAB Famotidine (Pepcid) 20 Mg Tab 20 MG PO BID for 10 Days, #20 TAB Metronidazole (Flagyl) 500 Mg Tab 0.5 TAB PO BID for 4 Days, #4 TAB Polyethylene (Miralax) 17 Gm Pow 17 GM PO DAILY for 30 Days Lactobacillus Acidophilus (Floranex) 1 Tab Tab 4 TAB PO TIDM for 14 Days, #60 TAB Discharge Exam Review of Systems: Constitutional: No chills, No fatigue, No fever, No problem reported, No sweats, No weakness, No weight loss Eyes: No diplopia, No discharge, No eye pain, No problem reported, No redness, No worsening of vision ENT: No dental problems, No hearing loss, No nasal symptoms, No problem reported, No sore throat, No tinnitus, No trouble swallowing, No unusual epistaxis Respiratory: No cough, No dyspnea at rest, No dyspnea on exertion, No hemoptysis, No problem reported, No shortness of breath, No sputum, No wheezing Cardiovascular: No PND, No chest pain, No claudication, No edema, No orthopnea, No palpitations, No problem reported Abdomen: + nausea, No GI bleeding, No constipation, No diarrhea, No pain, No problem reported, No vomiting Musculoskeletal: No calf pain, No joint pain, No muscle pain, No problem reported, No swelling Genitourinary - Female: No dysmenorrhea, No dysuria, No hematuria, No menorrhagia, No metrorrhagia, No , No problem reported, No rash, No urinary frequency, No urinary incontinence, No urinary retention, No urinary urgency, No vaginal bleeding, No vaginal discharge, No vaginal itching, No vulvodynia Neurologic: No balance problems, No memory loss, No numbness/tingling, No paralysis, No problem reported, No vertigo, No weakness Psychiatric: No anhedonism, No anxiety, No depression symptoms, No insomnia , No problem reported, No substance abuse Endocrine: No excessive thirst, No excessive urination, No fatigue, No problem reported Hematologic / Lymphatic: No abnormal bleeding/bruising, No clotting problems , No night sweats, No problem reported, No swollen lymph nodes Integumentary: No bleeding, No color change, No itch, No new/changing skin lesions, No problem reported, No rash Physical Exam: General Appearance: no apparent distress Eyes: normal inspection, PERRL, EOMI ENT: normal ENT inspection, hearing grossly normal, TMs normal Neck: supple, no adenopathy Respiratory/Chest: chest non-tender, lungs clear, normal breath sounds, no respiratory distress Cardiovascular: regular rate, rhythm, no edema, no gallop, no JVD, no murmur Abdomen / GI: normal bowel sounds, non tender, soft, no organomegaly, normal rectal exam Extremities: normal inspection, no calf tenderness, normal capillary refill 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 she was admitted to hospital bedoya CT reveals Sigmoid diverticulitis. (recurrent) C diff test was negative initially started on Imipenem switched her Abx next day to cipro / flagyl over night she had burning sensation in her arm, while getting cipro, it was discontinued by night physician nurses changed her IV site and cipro was restarted and she tolerated it well WBC count improved, [facility] and was started on pepcid Surgery consult appreciated, no intervention at this point she was found today to be stable for discharge with normal WBC Total Time Spent: Greater than 30 minutes This includes examination of the patient, discharge planning, medication reconciliation, and communication with other providers. Discharge Instructions Please refer to the electronic Patient Visit Report (Discharge Instructions) for additional information.
[2016-08-17] MEDS ORDERED: FAMOTIDINE IV INJ 20 MG in DEXTROSE 5% 100ML 100 ML IV SCH (10:00)
[2016-08-17] MEDS: NSS + 20MEQ KCL 1000ML 1,000 ML IV SCH ×2 (10:10→14:41)
[2016-08-17 14:49] VITALS: BP 97/60; PULSE 68; TEMP 36.2; O2SAT 97
[2017-01-07] MEDS ORDERED: MYL80 PO (11:58)
[2017-01-07] MEDS ORDERED: INVI1 IV (11:58)
[2017-01-07] MEDS ORDERED: VNCS125 PO (11:58)
[2017-01-07] MEDS ORDERED: PANT40TA PO (11:58)
[2017-01-07] MEDS ORDERED: SUCR1TAB PO (11:58)
== END 2016-08-17 17:17 | disposition home or self-care (01) | DRG 392 ==
LOC: ENRESERVDT → ENRESERVTM → C.EDB 17:20 → C.MSW 21:22
PROVIDERS: ADMIT Internal Medicine; ATTEND Internal Medicine
DX: K57.92 Diverticulitis of intestine, part unspecified, without perforation or abscess without bleeding (principal); Z87.891 Personal history of nicotine dependence; Z86.19 Personal history of other infectious and parasitic diseases; Z88.0 Allergy status to penicillin; Z88.1 Allergy status to other antibiotic agents; Z91.041 Radiographic dye allergy status

== ENCOUNTER → 2016-08-28 | Outpatient (CLI) | payer BC ==
[~2016-08-28] MED LIST changes: -CLIN300C10 PO; +CLIN300C2 PO; +FAMO20TA11 PO; +INVI1 IV; +LCTX PO; +METR500T PO; +MRLP17X PO; +MYL80 PO; +PANT40TA PO; +SUCR1TAB PO; -VANC1CAP19 PO; +VNCS125 PO; +VNCSEMP PO
== END | disposition home or self-care (01) ==
LOC: C.PAPS 10:10
PROVIDERS: ATTEND Obstetrics & Gynecology
DX: Z01.419 Encounter for gynecological examination (general) (routine) without abnormal findings (principal)

== ENCOUNTER 2016-12-29 07:55 | Emergency (ER) | payer BC ==
[~2016-12-29] VITALS: Ht 172.7 cm; Wt 65.4 kg
[~2016-12-29 07:55] MED LIST changes: -CLIN300C2 PO; -FAMO20TA11 PO; -INVI1 IV; -MYL80 PO; -PANT40TA PO; -SUCR1TAB PO; -VNCS125 PO; -VNCSEMP PO
[2016-12-29 07:56] VITALS: Ht 172.7 cm; Wt 65.4 kg
[2016-12-29] MEDS ORDERED: SODIUM CHLORIDE 0.9% 1000ML 2,000 ML IV STA (08:20)
[2016-12-29 08:28] LABS: BASO % 0.1 %; BASO ABS # 0.01 K/uL (0-0.2); COMPLETE YES; HEMATOCRIT 38.5 % (37-47); IG% 0.2 %; LYMPH % 15.6 %; LYMPH ABS # 1.64 K/uL (1.2-3.4); MEAN CELL VOLUME 89.1 fL (80-100); MEAN CORPUSCULAR HEMOGLOBIN 29.9 pg (25-34); MEAN CORPUSCULAR HGB CONC 33.5 g/dl (32-36); MONO % 9.4 %; NEUT % 73.7 %; PLATELET COUNT 250 K/uL (130-400); RED BLOOD COUNT 4.32 M/uL (4.2-5.4)
[2016-12-29] MEDS: ONDANSETRON INJ 2 MG/ML 2 ML VIAL IV STA ×2 (08:36→08:37)
[2016-12-29 08:53] LABS: BUN/CREATININE RATIO 17.3 (10-20); CALCIUM 8.9 mg/dl (8.5-10.1); CREATININE 0.82 mg/dl (0.60-1.20); POTASSIUM 3.8 mmol/L (3.5-5.1)
--- NOTE | 2016-12-29 09:14 | DIAGNOSTIC IMAGING REPORT ---
ABDOMEN AND PELVIS CT WITHOUT CONTRAST CT DOSE: 293.57 mGy.cm HISTORY: umbilical abdominal pain since yesterday feels like diverticulitis TECHNIQUE: Multiaxial CT images of the abdomen and pelvis were performed without contrast. COMPARISON STUDY: Abdomen and pelvis CT 08/14/2016. FINDINGS: The lung bases are clear. No pneumoperitoneum. No pneumatosis. No fractures within the visualized osseous structures. Small pericardial effusion has slightly decreased in size. The unenhanced liver, spleen, kidneys, adrenal glands, and pancreas are unremarkable. Normal gallbladder. The bladder, uterus, bilateral adnexa are within normal limits. Mild thickening and pericolonic fat stranding at the distal sigmoid colon with an inflamed diverticulum on image 68. This is consistent with acute diverticulitis. No perforation or abscess identified. This is in a similar location to the prior study. No evidence for bowel obstruction. IMPRESSION: Acute sigmoid diverticulitis. No perforation or abscess. Small pericardial effusion has slightly improved. Electronically signed by: Vignesh Nicole M.D. 12/29/2016 9:13 AM Dictated Date/Time: 12/29/2016 9:09 AM
[2016-12-29 10:38] LABS: URINE APPEARANCE CLEAR (CLEAR); URINE BILIRUBIN NEG (NEG); URINE COLOR YELLOW; URINE EPITHELIAL CELL AUTO 0-5 /lpf (0-5); URINE NITRITE NEG (NEG); URINE SPECIFIC GRAVITY 1.008 (1.000-1.030); UROBILINOGEN NEG (NEG); ZZUR CULT IF INDIC CLEAN CATCH NO
[2016-12-29 10:39] LABS: MANUAL MICROSCOPIC REQUIRED? NO; REVIEW REQ? NO
[2016-12-29] MEDS ORDERED: CIPROFLOXACIN 500 MG TAB PO STA (11:03)
[2016-12-29] MEDS ORDERED: VANCOMYCIN HCL 150 MG/3 ML SOLN PO STA (11:03)
[2016-12-29] MEDS ORDERED: CLINDAMYCIN HCL 150 MG CAP PO STA (11:03)
[2016-12-29] MEDS ORDERED: RASPBERRY SYRUP 5 ML UDP PO SCH (11:03)
[2016-12-29] MEDS ORDERED: CIPR-255 PO (11:30)
[2016-12-29] MEDS ORDERED: CLIN300C2 PO (11:30)
[2016-12-29] MEDS ORDERED: VNCSEMP PO (11:32)
[2016-12-29] MEDS ORDERED: KETOROLAC TROMETHAMINE 60 MG/2 ML VIAL IM STA (11:53)
[2016-12-29 12:07] VITALS: BP 115/72; PULSE 76; TEMP 36.7; O2SAT 100
--- NOTE | 2016-12-29 14:35 | EMERGENCY ROOM VISIT NOTE ---
History Report prepared by Ruma: Nitish Lazo Under the Supervision of: Dr. Damir Gaines D.O. First contact with patient: 08:06 Chief Complaint: ABDOMINAL PAIN Stated Complaint: ABDOMINAL PAIN Nursing Triage Summary: Pt states "I have diverticultis and I called my Dr at [facility] who is going to do my surgery for it and he said to come here" "I'm constipated and I didn't want to take anything". Small BM yesterday and "tiny little bit this morning". C/O mid abdomen pain, but usually pain is on the left. Pt associates nausea. History of Present Illness The patient is a 56 year old female who presents to the Emergency Room with complaints of persistent abdominal pain that started yesterday. She says the pain is severe. The patient states that she is supposed to have a bowel resection 4 days from now for her diverticulitis as well as a hysterectomy at [facility]. The patient says that her current abdominal pain is similar to her normal bouts of diverticulitis, but the pain is in the middle of her abdomen. Her pain is usually on her left side. The patient is nauseated. She states that she has been constipated, and only had a small bowel movement yesterday, and a tiny one this morning. The patient adds that she has achiness in her legs and hips, which is normal during her diverticulitis bouts. She called [facility] this morning, and was told to come here. She denies any vomiting, fevers, chest pain , shortness of breath, urinary symptoms, diarrhea, hematochezia, or vaginal bleeding/discharge. The patient has a history of an ovary and appendix removal. She has a history of endometriosis. Source of History: patient Onset: Yesterday Position: abdomen (middle) Symptom Intensity: severe Timing: other (persistent) Associated Symptoms: + nausea, No fevers, No chest pain, No SOB, No vomiting , No hematochezia, No diarrhea, No urinary symptoms Note: Associated symptoms: Achiness in hips and legs. Constipated. Denies vaginal bleeding/discharge. Review of Systems See HPI for pertinent positives & negatives. A total of 10 systems reviewed and were otherwise negative. Past Medical & Surgical Medical Problems: (1) Acute urinary tract infection (2) Diverticulitis Family History No pertinent family history Social History Smoking Status: Former Smoker Alcohol Use: none Drug Use: none Marital Status: Occupation Status: employed Current/Historical Medications Scheduled Ciprofloxacin Hcl (Cipro), 500 MG PO BID Clindamycin Hcl (Cleocin), 300 MG PO TID Vancomycin HCl (Vancomycin HCl), 125 MG PO QID Allergies Coded Allergies: Iodinated Diagnostic Agents (Verified Allergy, Unknown, ACHY,NAUSEA,WEAK, 12/29/16) Penicillins (Verified Allergy, Unknown, 12/29/16) Metronidazole (Verified Adverse Reaction, Intermediate, "PHYSICALLY UNCOMFORTABLE", 12/29/16) Physical Exam Vital Signs Date Time Temp Pulse Resp B/P (MAP) Pulse Ox O2 Delivery O2 Flow Rate FiO2 12/29/16 12:07 36.7 76 18 115/72 100 12/29/16 11:41 76 18 115/72 100 12/29/16 10:13 79 16 102/64 99 Room Air 12/29/16 07:56 36.7 90 16 118/71 98 Room Air Physical Exam GENERAL: sitting up in bed, alert, well appearing, well nourished, no distress, non-toxic EYE EXAM: normal conjunctiva OROPHARYNX: no exudate, no erythema, lips, buccal mucosa, and tongue normal and mucous membranes are moist NECK: supple, no nuchal rigidity, no adenopathy, non-tender LUNGS: Clear to auscultation. Normal chest wall mechanics HEART: no murmurs, S1 normal and S2 normal ABDOMEN: abdomen soft, mild tenderness to palpation in infraumbilical region, normo-active bowel sounds, no masses, no rebound or guarding. BACK: Back is symmetrical on inspection and there is no deformity, no midline tenderness, no CVA tenderness. SKIN: no rashes and no bruising UPPER EXTREMITIES: upper extremities are grossly normal. LOWER EXTREMITIES: No pitting edema. NEURO EXAM: Normal sensorium, cranial nerves II-XII grossly intact, normal speech, no gross weakness of arms, no gross weakness of legs. Medical Decision & Procedures ER Provider Diagnostic Interpretation: CT results as stated below per my review and the radiologist's interpretation: ABDOMEN AND PELVIS CT WITHOUT CONTRAST CT DOSE: 293.57 mGy.cm HISTORY: umbilical abdominal pain since yesterday feels like diverticulitis TECHNIQUE: Multiaxial CT images of the abdomen and pelvis were performed without contrast. COMPARISON STUDY: Abdomen and pelvis CT 08/14/2016. FINDINGS: The lung bases are clear. No pneumoperitoneum. No pneumatosis. No fractures within the visualized osseous structures. Small pericardial effusion has slightly decreased in size. The unenhanced liver, spleen, kidneys, adrenal glands, and pancreas are unremarkable. Normal gallbladder. The bladder, uterus, bilateral adnexa are within normal limits. Mild thickening and pericolonic fat stranding at the distal sigmoid colon with an inflamed diverticulum on image 68. This is consistent with acute diverticulitis. No perforation or abscess identified. This is in a similar location to the prior study. No evidence for bowel obstruction. IMPRESSION: Acute sigmoid diverticulitis. No perforation or abscess. Small pericardial effusion has slightly improved. Electronically signed by: Vignesh Nicole M.D. 12/29/2016 9:13 AM Dictated Date/Time: 12/29/2016 9:09 AM Laboratory Results 12/29/16 08:15 Red Blood Count 4.32, Mean Corpuscular Volume 89.1, Mean Corpuscular Hemoglobin 29.9, Mean Corpuscular Hemoglobin Concent 33.5, Mean Platelet Volume 9.0, Neutrophils (%) (Auto) 73.7, Lymphocytes (%) (Auto) 15.6, Monocytes (%) (Auto) 9.4, Eosinophils (%) (Auto) 1.0, Basophils (%) (Auto) 0.1, Neutrophils # (Auto) 7.74, Lymphocytes # (Auto) 1.64, Monocytes # (Auto) 0.99, Eosinophils # (Auto) 0.10, Basophils # (Auto) 0.01 12/29/16 08:15 Test 12/29/16 00:00 12/29/16 08:08 12/29/16 08:15 Urine Color YELLOW Urine Appearance CLEAR (CLEAR) Urine pH 6.0 (4.5-7.5) Urine Specific [place] 1.008 (1.000-1.030) Urine Protein NEG (NEG) Urine Glucose (UA) NEG (NEG) Urine Ketones NEG (NEG) Urine Occult Blood TRACE (NEG) Urine Nitrite NEG (NEG) Urine Bilirubin NEG (NEG) Urine Urobilinogen NEG (NEG) Urine Leukocyte Esterase NEG (NEG) Urine WBC (Auto) 0 /hpf (0-5) Urine RBC (Auto) 0-4 /hpf (0-4) Urine Hyaline Casts (Auto) 0 /lpf (0-5) Urine Epithelial Cells (Auto) 0-5 /lpf (0-5) Urine Bacteria (Auto) NEG (NEG) Urine Test NEG (NEG) White Blood Count 10.50 K/uL (4.8-10.8) Red Blood Count 4.32 M/uL (4.2-5.4) Hemoglobin 12.9 g/dL (12.0-16.0) Hematocrit 38.5 % (37-47) Mean Corpuscular Volume 89.1 fL (80-100) Mean Corpuscular Hemoglobin 29.9 pg (25-34) Mean Corpuscular Hemoglobin Concent 33.5 g/dl (32-36) Platelet Count 250 K/uL (130-400) Mean Platelet Volume 9.0 fL (7.4-10.4) Neutrophils (%) (Auto) 73.7 % Lymphocytes (%) (Auto) 15.6 % Monocytes (%) (Auto) 9.4 % Eosinophils (%) (Auto) 1.0 % Basophils (%) (Auto) 0.1 % Neutrophils # (Auto) 7.74 K/uL (1.4-6.5) Lymphocytes # (Auto) 1.64 K/uL (1.2-3.4) Monocytes # (Auto) 0.99 K/uL (0.11-0.59) Eosinophils # (Auto) 0.10 K/uL (0-0.5) Basophils # (Auto) 0.01 K/uL (0-0.2) RDW Standard Deviation 42.3 fL (36.4-46.3) RDW Coefficient of Variation 13.0 % (11.5-14.5) Immature Granulocyte % (Auto) 0.2 % Immature Granulocyte # (Auto) 0.02 K/uL (0.00-0.02) Anion Gap 7.0 mmol/L (3-11) Est Creatinine Clear Calc Drug Dose 78.2 ml/min Estimated GFR () 93.4 Estimated GFR (Non- 80.6 BUN/Creatinine Ratio 17.3 (10-20) Calcium Level 8.9 mg/dl (8.5-10.1) Total Bilirubin 0.8 mg/dl (0.2-1) Direct Bilirubin 0.2 mg/dl (0-0.2) Aspartate Amino Transf (AST/SGOT) 30 U/L (15-37) Alanine Aminotransferase (ALT/SGPT) 22 U/L (12-78) Alkaline Phosphatase 71 U/L (45-117) Total Protein 7.6 gm/dl (6.4-8.2) Albumin 4.0 gm/dl (3.4-5.0) Lipase 177 U/L (73-393) Laboratory results per my review. Medications Administered Medications (Trade) Dose Ordered Sig/Jovan Route Start Time Stop Time Status Last Admin Dose Admin Sodium Chloride 2,000 ml @ 999 mls/hr Q2H1M STAT IV 12/29/16 08:20 12/29/16 10:20 DC 12/29/16 08:36 999 MLS/HR Clindamycin HCl (Cleocin Cap) 300 mg NOW STAT PO 12/29/16 11:03 12/29/16 11:06 DC 12/29/16 11:33 300 MG Ciprofloxacin (Cipro Tab) 500 mg NOW STAT PO 12/29/16 11:03 12/29/16 11:06 DC 12/29/16 11:33 500 MG Vancomycin HCl (Vancomycin Oral Soln) 150 mg NOW STAT PO 12/29/16 11:03 12/29/16 11:06 DC 12/29/16 11:03 150 MG Ketorolac Tromethamine (Toradol Inj) 60 mg NOW STAT IM 12/29/16 11:53 12/29/16 11:54 DC 12/29/16 11:53 60 MG ED Course ED COURSE: Vital signs were reviewed and showed normal vitals. The patients medical record was reviewed The above diagnostic studies were performed and reviewed. ED treatments and interventions as stated above. 0815: The patient was evaluated in room B10. A complete history and physical examination was performed. 0820: Ordered Zofran Inj 4 mg IV, NSS 2000 ml @ 999 mls/hr IV. 1044: I reevaluated the patient and she does not want to take Flagyl because it makes her depressed and angry. 1103: Ordered Raspberry Syrup 5ml Cup 5 ml PO, Vancomycin Oral Soln 150 mg PO, Cipro Tab 500 mg PO, Cleocin Cap 300 mg PO. 1115: I reevaluated and updated the patient. 1135: Upon reevaluation, the patient is resting comfortably.I discussed my findings with the patient and she understands and agrees with the treatment plan. Based on the patients age, coexisting illnesses, exam and lab findings the decision to treat as an outpatient was made. The patient remained stable while under my care. The patient appeared well at the time of discharge. Medical Decision Differential diagnoses includes but is not limited to gastritis, peptic ulcer disease, GERD, gallbladder disease, pancreatitis, small bowel obstruction, acute coronary syndrome, pericarditis, ischemic bowel, irritable bowel disease, irritable bowel syndrome, appendicitis, diverticulitis, malignancy, hernia, urinary tract infection, torsion, /ectopic , perforation, trauma, infectious. Medication Reconciliation: I attest that I have personally reviewed the patient' s current medication list. Blood pressure screening: Patient was found to have normal blood pressure on screening and does not require follow-up. Patient is a 56-year-old female who presents the ER for abdominal pain which feels like her previous bouts of diverticulitis. She is scheduled to have a surgery at [facility] for this same issue. No fevers. She has been eating and drinking. CBC along with BMP, LFTs, bilirubin and lipase are normal. UA was negative. Urine was negative. CT shows acute diverticulitis. With her allergies she preferred not to try/use Flagyl again. Upon review of infectious diseases notes they had previously recommended Cipro, Clinda and oral Vicodin to prevent C. difficile. She preferred to take this regimen and was discharged to follow-up with her GI doctor. Discussed with Pt concerning signs and symptoms to watch out for. Pt was instructed to follow up with their PCP and discussed with the patient their option to return to the ED at anytime for persistent or worsening symptoms. The appropriate anticipatory guidance and out-patient management, including indications for return to the emergency department, were explained at length to the patient and understood. Impression Primary Impression: Diverticulitis Scribe Attestation The scribe's documentation has been prepared under my direction and personally reviewed by me in its entirety. I confirm that the note above accurately reflects all work, treatment, procedures, and medical decision making performed by me. Departure Information Dispostion Home / Self-Care Prescriptions Vancomycin HCl (Vancomycin HCl) 125 Mg/2.5 Ml Susp 125 MG PO QID for 10 Days Prov: Damir Gaines, DO 12/29/16 Clindamycin Hcl (CLEOCIN) 300 Mg Cap 300 MG PO TID for 10 Days, CAP Prov: Damir Gaines DO 12/29/16 Ciprofloxacin Hcl (CIPRO) 500 Mg Tab 500 MG PO BID, #20 TAB Prov: Damir Gaines DO 12/29/16 Referrals Ada Paul DO (PCP) Patient Instructions [facility]verticulitis [facility] Additional Instructions Please follow up with your primary care doctor with in the next 24 hours. Any worsening of your symptoms, please return to the ED immediately. This includes persistent nausea vomiting, fevers greater than 100.4, worsening pain, or any other concerning signs or symptoms from your standpoint. This take antibiotics as prescribed and follow-up with your surgeon. Problem Qualifiers Primary Impression: Diverticulitis Diverticulitis site: unspecified part of intestinal tract Diverticulitis bleeding: unspecified bleeding status Diverticulitis complication: unspecified complication status Qualified Codes: K57.92 - Diverticulitis of intestine, part unspecified, without perforation or abscess without bleeding
[2017-01-07] MEDS ORDERED: VNCS125 PO (11:58)
[2017-01-07] MEDS ORDERED: INVI1 IV (11:58)
[2017-01-07] MEDS ORDERED: MYL80 PO (11:58)
[2017-01-07] MEDS ORDERED: PANT40TA PO (11:58)
[2017-01-07] MEDS ORDERED: SUCR1TAB PO (11:58)
== END 2016-12-29 12:07 | disposition home or self-care (01) ==
LOC: C.EDB 07:56
DX: K57.92 Diverticulitis of intestine, part unspecified, without perforation or abscess without bleeding (principal); Z87.440 Personal history of urinary (tract) infections; Z87.891 Personal history of nicotine dependence; Z88.0 Allergy status to penicillin; Z88.8 Allergy status to other drugs, medicaments and biological substances; Z91.041 Radiographic dye allergy status

== ENCOUNTER 2016-12-30 21:51 | Inpatient (IN) | payer BC ==
[~2016-12-30] VITALS: Ht 172.7 cm; Wt 66.0 kg
[~2016-12-30 21:51] MED LIST changes: +CLIN300C2 PO; -LCTX PO; -METR500T PO; -MRLP17X PO; +VNCSEMP PO
[2016-12-30] MEDS ORDERED: CIPROFLOXACIN 400MG / 200ML D5W IV STA (22:09)
[2016-12-30] MEDS ORDERED: SODIUM CHLORIDE 0.9% 1000ML 1,000 ML IV ONE (22:15)
[2016-12-30] MEDS ORDERED: CLINDAMYCIN IV 600 MG in DEXTROSE 5% ADD-VANTAGE 50ML 50 ML IV ONE (22:15)
[2016-12-30 22:33] LABS: BASO % 0.1 %; BASO ABS # 0.01 K/uL (0-0.2); COMPLETE YES; EOS % 0.9 %; HEMATOCRIT 36.2 % (37-47); IG% 0.1 %; LYMPH % 9.2 %; MEAN CELL VOLUME 87.9 fL (80-100); MEAN CORPUSCULAR HEMOGLOBIN 28.9 pg (25-34); MEAN CORPUSCULAR HGB CONC 32.9 g/dl (32-36); MEAN PLATELET VOLUME 8.7 fL (7.4-10.4); MONO % 12.7 %; PLATELET COUNT 209 K/uL (130-400); RED BLOOD COUNT 4.12 M/uL (4.2-5.4); WHITE BLOOD COUNT 8.67 K/uL (4.8-10.8)
[2016-12-30 22:54] LABS: BUN/CREATININE RATIO 12.7 (10-20); CREATININE 0.96 mg/dl (0.60-1.20); POTASSIUM 3.7 mmol/L (3.5-5.1)
[2016-12-30 22:57] LABS: ALB/GLOB RATIO 0.9 (0.9-2); CALCIUM 8.7 mg/dl (8.5-10.1)
--- NOTE | 2016-12-30 23:14 | EMERGENCY ROOM VISIT NOTE ---
History First contact with patient: 21:59 Chief Complaint: GI ASSESSMENT Stated Complaint: ABD PAIN,NAUSEA,HEADACHE,VOMITING History of Present Illness The patient is a 56 year old female who presents to the Emergency Room with complaints of abdominal pain, nausea, and vomiting worsening over the past one day. The patient was seen and evaluated at this facility yesterday where she was diagnosed with acute sigmoid diverticulitis on CT scan. The patient felt well for discharge home and was placed on a regimen of oral Cipro, oral clindamycin, and oral vancomycin. The patient states that she has attempted to take her medications throughout the day, but continues with worsening pain. When she takes her medication she has emesis, and is not able to tolerate her meds at home. The patient has had intermittent fever. She has been able to use the bathroom as normal. She reports the emesis did improve her abdominal discomfort, and now rates her discomfort a 3/10. Review of Systems More than 10 systems were reviewed and otherwise negative with the exception of history of present illness. Past Medical/Surgical History Medical Problems: (1) Acute urinary tract infection (2) Diverticulitis Family History No pertinent family history Social History Smoking Status: Never Smoker Alcohol Use: none Drug Use: none Marital Status: Occupation Status: employed Current/Historical Medications Scheduled Ciprofloxacin Hcl (Cipro), 500 MG PO BID Clindamycin Hcl (Cleocin), 300 MG PO TID Vancomycin HCl (Vancomycin HCl), 125 MG PO QID Allergies Coded Allergies: Iodinated Diagnostic Agents (Verified Allergy, Unknown, ACHY,NAUSEA,WEAK, 12/29/16) Penicillins (Verified Allergy, Unknown, 12/29/16) Metronidazole (Verified Adverse Reaction, Intermediate, "PHYSICALLY UNCOMFORTABLE", 12/29/16) Physical Exam Vital Signs Date Time Temp Pulse Resp B/P (MAP) Pulse Ox O2 Delivery O2 Flow Rate FiO2 12/30/16 21:54 36.9 90 18 112/71 95 Room Air Physical Exam VITALS: Vitals are noted on the nurse's note and reviewed by myself. Vital signs stable. GENERAL: Well-developed, well-nourished, white female, who is in no acute distress and resting comfortably. Patient is cooperative with the examination. HEAD: Normocephalic atraumatic. HEART: Regular rate and rhythm without murmurs gallops or rubs. LUNGS: Clear to auscultation bilaterally without wheezes, rales or rhonchi. No retractions or accessory muscle use. ABDOMEN: Positive normal bowel sounds x 4. Soft with left lower and suprapubic tenderness on palpation. No rebound or guarding. No CVA tenderness. MUSCULOSKELETAL: No muscle atrophy, erythema, or edema noted. Full range of motion without joint tenderness in all extremities. Medical Decision & Procedures Laboratory Results 12/30/16 22:26 Red Blood Count 4.12, Mean Corpuscular Volume 87.9, Mean Corpuscular Hemoglobin 28.9, Mean Corpuscular Hemoglobin Concent 32.9, Mean Platelet Volume 8.7, Neutrophils (%) (Auto) 77.0, Lymphocytes (%) (Auto) 9.2, Monocytes (%) (Auto) 12.7, Eosinophils (%) (Auto) 0.9, Basophils (%) (Auto) 0.1, Neutrophils # (Auto ) 6.67, Lymphocytes # (Auto) 0.80, Monocytes # (Auto) 1.10, Eosinophils # (Auto ) 0.08, Basophils # (Auto) 0.01 12/30/16 22:26 Test 12/30/16 22:26 White Blood Count 8.67 K/uL (4.8-10.8) Red Blood Count 4.12 M/uL (4.2-5.4) Hemoglobin 11.9 g/dL (12.0-16.0) Hematocrit 36.2 % (37-47) Mean Corpuscular Volume 87.9 fL (80-100) Mean Corpuscular Hemoglobin 28.9 pg (25-34) Mean Corpuscular Hemoglobin Concent 32.9 g/dl (32-36) Platelet Count 209 K/uL (130-400) Mean Platelet Volume 8.7 fL (7.4-10.4) Neutrophils (%) (Auto) 77.0 % Lymphocytes (%) (Auto) 9.2 % Monocytes (%) (Auto) 12.7 % Eosinophils (%) (Auto) 0.9 % Basophils (%) (Auto) 0.1 % Neutrophils # (Auto) 6.67 K/uL (1.4-6.5) Lymphocytes # (Auto) 0.80 K/uL (1.2-3.4) Monocytes # (Auto) 1.10 K/uL (0.11-0.59) Eosinophils # (Auto) 0.08 K/uL (0-0.5) Basophils # (Auto) 0.01 K/uL (0-0.2) RDW Standard Deviation 41.6 fL (36.4-46.3) RDW Coefficient of Variation 12.9 % (11.5-14.5) Immature Granulocyte % (Auto) 0.1 % Immature Granulocyte # (Auto) 0.01 K/uL (0.00-0.02) Anion Gap 12.0 mmol/L (3-11) Est Creatinine Clear Calc Drug Dose 66.8 ml/min Estimated GFR () 77.2 Estimated GFR (Non- 66.6 BUN/Creatinine Ratio 12.7 (10-20) Calcium Level 8.7 mg/dl (8.5-10.1) Total Bilirubin 0.9 mg/dl (0.2-1) Aspartate Amino Transf (AST/SGOT) 26 U/L (15-37) Alanine Aminotransferase (ALT/SGPT) 17 U/L (12-78) Alkaline Phosphatase 57 U/L (45-117) Total Protein 7.0 gm/dl (6.4-8.2) Albumin 3.4 gm/dl (3.4-5.0) Globulin 3.6 gm/dl (2.5-4.0) Albumin/Globulin Ratio 0.9 (0.9-2) Lipase 155 U/L (73-393) Medications Administered Medications (Trade) Dose Ordered Sig/Jovan Route Start Time Stop Time Status Last Admin Dose Admin Ciprofloxacin/ Dextrose (Cipro / D5W) 400 mg NOW STAT IV 12/30/16 22:09 12/30/16 22:11 DC 12/30/16 22:44 400 MG Sodium Chloride 1,000 ml @ 999 mls/hr Q1H1M ONCE IV 12/30/16 22:15 12/30/16 23:15 12/30/16 22:43 999 MLS/HR ED Course Physical exam and history were performed. Nursing notes and EMR were reviewed. Patient appears to have a diagnosis of acute sigmoid diverticulitis on CT scan roughly 24 hours ago. She is not doing well with her at home medications, and is having difficulty tolerating her by mouth meds. She has had several episodes of diverticulitis in the past, and she states that she has required admission because of the severity of her symptoms. IV access was established and labs were obtained. The patient was hydrated and medicated as above. I did offer pain and nausea medication, but the patient states at this time she does not require additional medicine. The patient's blood work is as above and was reviewed. She does not have a significantly elevated white blood cell count or gross anemia. I do not feel that additional imaging is necessary at this time. The patient does not appear well for discharge home. I discussed the case with the on-call hospitalist, who agreed to evaluate the patient here in the emergency department for further care. Please see their dictation for further patient course, management, and disposition. The chart was completed utilizing [employer] Voice Recognition Software. Grammatical errors, random word insertions, pronoun errors, and incomplete sentences are an occasional consequence of this system due to software limitations, ambient noise, and hardware issues. Any formal questions or concerns about the content, text, or information contained within the body of this dictation should be directly addressed to the provider for clarification. . Medical Decision Differential diagnosis: Etiologies such as appendicitis, diverticulitis, PUD, biliary pathology, UTI, pancreatitis, obstruction, mesenteric ischemia, aortic pathology, infections, inflammatory bowel disease, renal colic, as well as others were entertained. Impression Primary Impression: Diverticulitis Departure Information Referrals Magnolia Pisano M.D. (PCP) Patient Instructions [facility] Problem Qualifiers Primary Impression: Diverticulitis
--- NOTE | 2016-12-31 00:21 | History and Physical ---
History & Physical Date & Time of Service: Dec 31, 2016 at 00:21 Chief Complaint: Abd Pain,Nausea,Headache,Vomiting Primary Care Physician: Magnolia Pisano M.D. History of Present Illness Source: patient 56-year-old female with a past medical history of diverticulitis, history of C. difficile presented to the ER with complaints of abdominal pain, nausea and vomiting which started yesterday. She presented to the ER yesterday and had a CT abdomen and pelvis which was diagnostic of acute sigmoid diverticulitis. She was discharged home on oral ciprofloxacin, clindamycin and oral vancomycin. The patient returned today as she was nauseous and was throwing up all day and was not able to take any of her medication. She complains of abdominal pain in the lower abdominal area and left side and states that her pain was a 3 out of 10 in severity. The pain is worse on moving and lying still but is not worse compared to yesterday. She also had noted that she felt warm today and her temperature was recorded to be 100.4 Fahrenheit. Denied any diarrhea, chills. The patient has a history of recurrent diverticulitis, last episode being about 4 months ago. She was scheduled for a bowel resection and hysterectomy this Saturday at [facility]. Past Medical/Surgical History Medical Problems: (1) Acute urinary tract infection Status: Resolved (2) Diverticulitis Status: Chronic Family History No pertinent family history Social History Smoking Status: Never Smoker Drug Use: none Marital Status: Housing status: lives with family Occupational Status: employed Immunizations History of Influenza Vaccine: No History of Tetanus Vaccine?: Yes History of Pneumococcal: No History of Hepatitis B Vaccine: No Multi-Drug Resistant Organisms History of MDRO: No Allergies Coded Allergies: Iodinated Diagnostic Agents (Verified Allergy, Unknown, ACHY,NAUSEA,WEAK, 12/29/16) Penicillins (Verified Allergy, Unknown, 12/29/16) Metronidazole (Verified Adverse Reaction, Intermediate, "PHYSICALLY UNCOMFORTABLE", 12/29/16) Home Medications Scheduled Ciprofloxacin Hcl (Cipro), 500 MG PO BID Clindamycin Hcl (Cleocin), 300 MG PO TID Vancomycin HCl (Vancomycin HCl), 125 MG PO QID Review of Systems Constitutional: No fever, No chills Eyes: No worsening of vision ENT: No hearing loss Respiratory: No cough, No sputum, No shortness of breath Cardiovascular: No chest pain, No palpitations Abdomen: + pain, + nausea, + vomiting, No GI bleeding Musculoskeletal: No joint pain Genitourinary - Female: No dysuria, No urinary frequency, No urinary urgency Neurologic: No memory loss Psychiatric: No depression symptoms Endocrine: No fatigue Hematologic / Lymphatic: No abnormal bleeding/bruising Physical Exam Vital Signs Date Time Temp Pulse Resp B/P (MAP) Pulse Ox O2 Delivery O2 Flow Rate FiO2 12/30/16 21:54 36.9 90 18 112/71 95 Room Air General Appearance: WD/WN, + mild distress Head: normocephalic, atraumatic Eyes: normal inspection ENT: hearing grossly normal Neck: supple Respiratory/Chest: chest non-tender, lungs clear, normal breath sounds, no respiratory distress, no accessory muscle use Cardiovascular: regular rate, rhythm Abdomen/GI: + tenderness (LLQ and mid abdominal area) Back: normal inspection, no CVA tenderness Extremities/Musculoskelatal: normal inspection, no pedal edema Neurologic/Psych: alert, normal mood/affect, oriented x 3 Skin: normal color Diagnostics Laboratory Results Results Past 24 Hours Test 12/30/16 22:26 Range/Units White Blood Count 8.67 4.8-10.8 K/uL Red Blood Count 4.12 4.2-5.4 M/uL Hemoglobin 11.9 12.0-16.0 g/dL Hematocrit 36.2 37-47 % Mean Corpuscular Volume 87.9 80-100 fL Mean Corpuscular Hemoglobin 28.9 25-34 pg Mean Corpuscular Hemoglobin Concent 32.9 32-36 g/dl Platelet Count 209 130-400 K/uL Mean Platelet Volume 8.7 7.4-10.4 fL Neutrophils (%) (Auto) 77.0 % Lymphocytes (%) (Auto) 9.2 % Monocytes (%) (Auto) 12.7 % Eosinophils (%) (Auto) 0.9 % Basophils (%) (Auto) 0.1 % Neutrophils # (Auto) 6.67 1.4-6.5 K/uL Lymphocytes # (Auto) 0.80 1.2-3.4 K/uL Monocytes # (Auto) 1.10 0.11-0.59 K/uL Eosinophils # (Auto) 0.08 0-0.5 K/uL Basophils # (Auto) 0.01 0-0.2 K/uL RDW Standard Deviation 41.6 36.4-46.3 fL RDW Coefficient of Variation 12.9 11.5-14.5 % Immature Granulocyte % (Auto) 0.1 % Immature Granulocyte # (Auto) 0.01 0.00-0.02 K/uL Sodium Level 141 136-145 mmol/L Potassium Level 3.7 3.5-5.1 mmol/L Chloride Level 106 98-107 mmol/L Carbon Dioxide Level 23 21-32 mmol/L Anion Gap 12.0 3-11 mmol/L Blood Urea Nitrogen 12 7-18 mg/dl Creatinine 0.96 0.60-1.20 mg/dl Est Creatinine Clear Calc Drug Dose 66.8 ml/min Estimated GFR () 77.2 Estimated GFR (Non- 66.6 BUN/Creatinine Ratio 12.7 10-20 Random Glucose 93 70-99 mg/dl Calcium Level 8.7 8.5-10.1 mg/dl Total Bilirubin 0.9 0.2-1 mg/dl Aspartate Amino Transf (AST/SGOT) 26 15-37 U/L Alanine Aminotransferase (ALT/SGPT) 17 12-78 U/L Alkaline Phosphatase 57 45-117 U/L Total Protein 7.0 6.4-8.2 gm/dl Albumin 3.4 3.4-5.0 gm/dl Globulin 3.6 2.5-4.0 gm/dl Albumin/Globulin Ratio 0.9 0.9-2 Lipase 155 73-393 U/L Diagnostic Radiology CT ABD FROM 12/29: [~ rep ct add3]] ABDOMEN AND PELVIS CT WITHOUT CONTRAST CT DOSE: 293.57 mGy.cm HISTORY: umbilical abdominal pain since yesterday feels like diverticulitis TECHNIQUE: Multiaxial CT images of the abdomen and pelvis were performed without contrast. COMPARISON STUDY: Abdomen and pelvis CT 08/14/2016. FINDINGS: The lung bases are clear. No pneumoperitoneum. No pneumatosis. No fractures within the visualized osseous structures. Small pericardial effusion has slightly decreased in size. The unenhanced liver, spleen, kidneys, adrenal glands, and pancreas are unremarkable. Normal gallbladder. The bladder, uterus, bilateral adnexa are within normal limits. Mild thickening and pericolonic fat stranding at the distal sigmoid colon with an inflamed diverticulum on image 68. This is consistent with acute diverticulitis. No perforation or abscess identified. This is in a similar location to the prior study. No evidence for bowel obstruction. IMPRESSION: Acute sigmoid diverticulitis. No perforation or abscess. Small pericardial effusion has slightly improved. Electronically signed by: Vignesh Nicole M.D. 12/29/2016 9:13 AM Dictated Date/Time: 12/29/2016 9:09 AM Impression Assessment and Plan 56-year-old female with a past medical history of diverticulitis, history of C. difficile presented to the ER with complaints of abdominal pain, nausea and vomiting which started yesterday. She presented to the ER yesterday and had a CT abdomen and pelvis which was diagnostic of acute sigmoid diverticulitis. She was discharged home on oral ciprofloxacin, clindamycin and oral vancomycin. The patient returned today as she was nauseous and was throwing up all day and was not able to take any of her medication. Acute recurrent sigmoid diverticulitis: - Continue IV clindamycin, IV ciprofloxacin(the patient has not tolerated metronidazole in the past) - Zofran as needed - Continue IV fluids - Pain control with Toradol 30 mg every 6 hours History of C. difficile: - By mouth vancomycin DVT prophylaxis: Heparin subcutaneous Full code Disposition: Admitted to [facility] Patient was originally scheduled to have a bowel resection with hysterectomy at [facility] this Saturday, will need to contact her surgeon for further plans about surgery Level of Care Med/Surg Resuscitation Status FULL RESUSCITATION VTE Prophylaxis VTE Risk Assessment Done? Y/N: Yes Risk Level: Moderate Given or contraindicated: Unfractionated heparin SQ Resident Tracking Resident Involvement: Resident Care Provided Care Provided: Adult Hospital Medicine Assessment and Plan Attending Addendum: I have physically seen and examined this patient, have directed their medical care, have supervised the medical residents activities, and agree with the H&P as noted above, with the following changes: NONE
[2016-12-31] MEDS: SODIUM CHLORIDE 0.9% 1000ML 1,000 ML IV SCH ×3 (01:23→17:12)
[2016-12-31 01:46] VITALS: BP 110/62; PULSE 80; TEMP 37.1; O2SAT 96; Ht 172.7 cm; Wt 66.0 kg
[2016-12-31 01:50] LABS: URINE APPEARANCE CLEAR (CLEAR); URINE BILIRUBIN NEG (NEG); URINE COLOR YELLOW; URINE NITRITE NEG (NEG); URINE PH 6.5 (4.5-7.5); URINE SPECIFIC GRAVITY 1.011 (1.000-1.030); UROBILINOGEN NEG (NEG); ZZUR CULT IF INDIC CLEAN CATCH NO
[2016-12-31 01:53] LABS: MANUAL MICROSCOPIC REQUIRED? NO; REVIEW REQ? NO
[2016-12-31] MEDS: CLINDAMYCIN IV 900 MG in DEXTROSE 5% ADD-VANTAGE 100ML 100 ML IV SCH ×3 (05:31→22:55)
[2016-12-31] MEDS: KETOROLAC TROMETHAMINE 30 MG/ML VIAL IV. PRN ×2 (05:44→11:48)
[2016-12-31] MEDS ORDERED: NURSING VERBAL MED ORDER ONE (05:45)
[2016-12-31 06:37] LABS: PROTHROMBIN TIME (PATIENT) 11.1 SECONDS (9.0-12.0)
[2016-12-31 07:38] VITALS: BP 83/54; PULSE 66; TEMP 37.2; O2SAT 94
[2016-12-31] MEDS ORDERED: VANCOMYCIN HCL 125 MG/2.5ML SOLN PO SCH (08:00)
[2016-12-31] MEDS ORDERED: RASPBERRY SYRUP 5 ML UDP PO SCH (08:00)
[2016-12-31] MEDS: VANCOMYCIN HCL 125 MG/2.5ML SOLN PO SCH ×4 (08:16→21:08)
[2016-12-31] MEDS: RASPBERRY SYRUP 5 ML UDP PO SCH ×4 (08:16→20:00)
[2016-12-31 08:30] VITALS: BP 100/64; O2SAT 94
[2016-12-31] MEDS: CIPROFLOXACIN / D5W 400 MG in PREMIXED IN D5W 200 ML IV SCH ×2 (09:24→20:40)
[2016-12-31] MEDS: HEPARIN SOD 5000 UNIT/0.5 ML CARP SQ SCH ×3 (09:24→23:08)
[2016-12-31 09:54] LABS: BUN/CREATININE RATIO 10.1 (10-20); CREATININE 1.1 mg/dl (0.60-1.20); POTASSIUM 3.6 mmol/L (3.5-5.1)
[2016-12-31 09:58] LABS: CALCIUM 8.2 mg/dl (8.5-10.1)
--- NOTE | 2016-12-31 10:26 | Hospitalist Progress Note ---
Hospitalist Progress Note Date of Service Dec 31, 2016. (Rosalba Nugent PA-C) Subjective Pt evaluation today including: conversation w/ patient, physical exam, chart review, lab review, review of studies Voiding: no voiding problems The patient was seen and examined this morning. Pt reports doing ok this morning. Patient notes that her pain is minimal whenever she lies flat does not move. It is worse whenever she sits up, she has been able to ambulate about the room and reports that her pain is sore at that time but that it is tolerable. Toradol has been working well for pain control. Her nausea is improved significantly this morning, although she does report having a little bit of nausea this morning, last time she vomited was yesterday. The patient had a bowel movement yesterday. Patient denies any lightheadedness or dizziness. Patient reports she is scheduled for surgical procedure this Saturday with Dr. Wang for bowel resection and Dr. Waldrop for hysterectomy at the same time. Additional Comments: Constitutional: No fever, sweats or chills Eyes: No diplopia, no worsening or blurred vision ENT: normal hearing, no trouble swallowing Respiratory: No cough, sputum, dyspnea at rest or on exertion Cardiovascular: No chest pain, tightness or palpitations Abdomen: See history of present illness Musculoskeletal: No joint pain, calf pain, swelling Neurologic: No weakness, numbness/tingling, or balance problems Psychiatric: No anxiety or depression Skin: No rash or itch (Rosalba Nugent PA-C) Objective Vital Signs Date Time Temp Pulse Resp B/P (MAP) Pulse Ox O2 Delivery O2 Flow Rate FiO2 12/31/16 08:30 100/64 (76) 12/31/16 07:38 37.2 66 16 83/54 (64) 94 12/31/16 01:46 37.1 80 18 110/62 96 Room Air 12/31/16 00:53 81 20 121/79 98 12/31/16 00:05 84 16 112/71 96 Room Air 12/30/16 21:54 36.9 90 18 112/71 95 Room Air (Rosalba Nugent PA-C) Physical Exam Notes: General: awake, alert, no apparent distress Head: Normocephalic, atraumatic ENT: PERRL, EOMI, no pharyngeal exudate, mucous membranes moist Chest: Clear to auscultation, on room air, no adventitious breath sounds Cardiac: Regular rate and rhythm, no murmur, no JVD, normal peripheral pulses, good capillary refill Abdominal: NABS x 4 quadrants, soft, tender with mild palpation generalized him throughout,+ guarding, Extremities: Normal inspection, no peripheral edema or erythema, calfs nontender to palpation Psych: Normal mood and affect Neuro: AAO x 3, strength intact bilaterally and related 5/5, no motor deficits, speech is clear, no peripheral sensory deficits (Rosalba Nugent, CANDICE) Laboratory Results Last 24 Hours Test 12/30/16 22:26 12/31/16 01:10 12/31/16 06:08 12/31/16 08:52 White Blood Count 8.67 K/uL Red Blood Count 4.12 M/uL Hemoglobin 11.9 g/dL Hematocrit 36.2 % Mean Corpuscular Volume 87.9 fL Mean Corpuscular Hemoglobin 28.9 pg Mean Corpuscular Hemoglobin Concent 32.9 g/dl Platelet Count 209 K/uL Mean Platelet Volume 8.7 fL Neutrophils (%) (Auto) 77.0 % Lymphocytes (%) (Auto) 9.2 % Monocytes (%) (Auto) 12.7 % Eosinophils (%) (Auto) 0.9 % Basophils (%) (Auto) 0.1 % Neutrophils # (Auto) 6.67 K/uL Lymphocytes # (Auto) 0.80 K/uL Monocytes # (Auto) 1.10 K/uL Eosinophils # (Auto) 0.08 K/uL Basophils # (Auto) 0.01 K/uL RDW Standard Deviation 41.6 fL RDW Coefficient of Variation 12.9 % Immature Granulocyte % (Auto) 0.1 % Immature Granulocyte # (Auto) 0.01 K/uL Sodium Level 141 mmol/L 143 mmol/L Potassium Level 3.7 mmol/L 3.6 mmol/L Chloride Level 106 mmol/L 111 mmol/L Carbon Dioxide Level 23 mmol/L 21 mmol/L Anion Gap 12.0 mmol/L 11.0 mmol/L Blood Urea Nitrogen 12 mg/dl 11 mg/dl Creatinine 0.96 mg/dl 1.10 mg/dl Est Creatinine Clear Calc Drug Dose 66.8 ml/min 58.3 ml/min Estimated GFR () 77.2 65.5 Estimated GFR (Non- 66.6 56.5 BUN/Creatinine Ratio 12.7 10.1 Random Glucose 93 mg/dl 99 mg/dl Calcium Level 8.7 mg/dl 8.2 mg/dl Total Bilirubin 0.9 mg/dl Aspartate Amino Transf (AST/SGOT) 26 U/L Alanine Aminotransferase (ALT/SGPT) 17 U/L Alkaline Phosphatase 57 U/L Total Protein 7.0 gm/dl Albumin 3.4 gm/dl Globulin 3.6 gm/dl Albumin/Globulin Ratio 0.9 Lipase 155 U/L Urine Color YELLOW Urine Appearance CLEAR Urine pH 6.5 Urine Specific [facility] 1.011 Urine Protein 3+ Urine Glucose (UA) NEG Urine Ketones NEG Urine Occult Blood 1+ Urine Nitrite NEG Urine Bilirubin NEG Urine Urobilinogen NEG Urine Leukocyte Esterase NEG Urine WBC (Auto) 1-5 /hpf Urine RBC (Auto) 0-4 /hpf Urine Hyaline Casts (Auto) 1-5 /lpf Urine Epithelial Cells (Auto) 10-20 /lpf Urine Bacteria (Auto) NEG Prothrombin Time 11.1 SECONDS Prothromb Time International Ratio 1.0 (Rosalba Nugent, CANDICE) Assessment and Plan 56-year-old female with a past medical history of diverticulitis, history of C. difficile presented to the ER with complaints of abdominal pain, nausea and vomiting which started on 12/28. She initially presented to the ER on 12/[address] abdomen and pelvis which was diagnostic of acute sigmoid diverticulitis. She was discharged home on oral ciprofloxacin, clindamycin and oral vancomycin. She then returned on 12/30 with increased severe nausea and vomiting, headache, and a temperature of 100.4. Acute recurrent sigmoid diverticulitis: - Continue IV clindamycin, IV ciprofloxacin(the patient has not tolerated metronidazole in the past) for now - pt has penicillin allergy. Possible that clindamycin PO was exacerbating symptoms. - Zofran as needed - Continue IV fluids - Pain control with Toradol 30 mg every 6 hours- patient reports this is improving her symptoms - I have called and left a message with the nurseFlorencia at Dr. Fernandez's office from [facility]. She is scheduled for a bowel resection on 01/02. She is also supposed to have a hysterectomy at the same time by Dr. Waldrop, I have left a message with his nursing staff as well to have them call me back. Update 14:00: Discussed with colorectal surgeon nurse and FINANCE VICE PRESIDENT nurse that both physicians will postpone surgery, with attempt to reschedule her in 4 weeks. They will call the patient and reschedule within 1 week. History of C. difficile: - By mouth vancomycin ordered at time of admit for ppx. Pt had negative c.diff in Jul. Sample currently uncollected. DVT prophylaxis: Ambulatory, teds, SCDs CODE STATUS: Full code Disposition: Admitted to [facility] Patient was originally scheduled to have a bowel resection with hysterectomy at [facility] this Saturday, will need to contact her surgeon for further plans about surgery (Rosalba Nugent, CANDICE) PA Physician Supervision Note: I interviewed and examined the patient. Discussed with Rosalba Nugent PAC and agree with findings and plan as documented in the note. Any exceptions or clarifications are listed here: None PT admitted with worsening of pre existing diverticulitis and c diff, abdominal pain, all improved with hydration and pain meds plus shifting antibiotics to iv from po vitals reviewed car is reg lungs clear abd, hyperactive bowel sounds, soft, tender lower abd L>R continue antibiotics for diverticulitis and C diff, supportive ivf and pain meds Documented By: Robe Stern (Robe Stern M.D.)
[2016-12-31] MEDS: SUCRALFATE 1 GM TAB PO SCH ×2 (14:46→20:40)
[2016-12-31 15:18] VITALS: BP 102/66; PULSE 63; TEMP 36.7; O2SAT 97
[2016-12-31 20:00] VITALS: O2SAT 97
[2016-12-31] MEDS: ONDANSETRON INJ 2 MG/ML 2 ML VIAL IV PRN (21:09)
[2016-12-31] MEDS ORDERED: ONDANSETRON INJ 2 MG/ML 2 ML VIAL IV STA (22:38)
[2017-01-01] VITALS (7 sets, daily range): BP systolic 93–114; BP diastolic 53–70; PULSE 56–89; TEMP 36.5–36.8; O2SAT 93–99
[2017-01-01] MEDS: SODIUM CHLORIDE 0.9% 1000ML 1,000 ML IV SCH ×3 (01:15→17:51)
[2017-01-01] MEDS: CLINDAMYCIN IV 900 MG in DEXTROSE 5% ADD-VANTAGE 100ML 100 ML IV SCH (06:41)
[2017-01-01] MEDS: SUCRALFATE 1 GM TAB PO SCH ×4 (06:41→22:19)
[2017-01-01] MEDS: KETOROLAC TROMETHAMINE 30 MG/ML VIAL IV. PRN (06:46)
[2017-01-01 07:36] LABS: HEMATOCRIT 32.6 % (37-47); MEAN CELL VOLUME 89.3 fL (80-100); MEAN CORPUSCULAR HEMOGLOBIN 30.4 pg (25-34); MEAN PLATELET VOLUME 9.5 fL (7.4-10.4); PLATELET COUNT 176 K/uL (130-400); RED BLOOD COUNT 3.65 M/uL (4.2-5.4); WHITE BLOOD COUNT 6.72 K/uL (4.8-10.8)
[2017-01-01] MEDS: HEPARIN SOD 5000 UNIT/0.5 ML CARP SQ SCH ×3 (08:00→23:37)
[2017-01-01 08:11] LABS: BUN/CREATININE RATIO 8.1 (10-20); CREATININE 1.6 mg/dl (0.60-1.20); POTASSIUM 3.6 mmol/L (3.5-5.1)
[2017-01-01 08:25] LABS: CALCIUM 8.5 mg/dl (8.5-10.1)
[2017-01-01] MEDS ORDERED: MoRPHine SULFATE 4 MG/ML 1 ML CARP\\VIAL IV PRN (08:45)
--- NOTE | 2017-01-01 08:45 | Progress Note ---
Subjective Date of Service: Jan 01, 2017. Subjective Pt evaluation today including: conversation w/ patient, physical exam, chart review, lab review, review of studies, review of inpatient medication list Report feeling much better generally, and abdominal pain, Rate abdominal pain is around 4 out of 10 No nausea vomiting/diarrhea No fever and chill would like to have some clear Problem List Medical Problems: (1) Acute diverticulitis Status: Acute (2) Colitis Status: Acute (3) Diarrhea Status: Acute (4) Diverticulitis Status: Chronic (5) Leukocytosis Status: Acute (6) Lower abdominal pain Status: Acute Review of Systems Constitutional: No fever, No chills, No sweats, No weight loss, No weakness, No fatigue, No problem reported Eyes: No worsening of vision, No eye pain, No redness, No discharge, No diplopia ENT: No hearing loss, No unusual epistaxis, No nasal symptoms, No sore throat, No tinnitus, No dental problems, No trouble swallowing Respiratory: No cough, No sputum, No wheezing, No shortness of breath, No dyspnea on exertion, No dyspnea at rest, No hemoptysis Cardiac: No chest pain, No orthopnea, No PND, No edema, No claudication, No palpitations Abdomen: + see HPI, + pain, No nausea, No vomiting, No diarrhea, No constipation Musculoskeletal: No joint pain, No muscle pain, No swelling, No calf pain Female : No dysuria, No urinary frequency, No hematuria, No incontinence, No abnormal vaginal bleeding, No vaginal discharge Neurologic: No memory loss, No paralysis, No weakness, No numbness/tingling, No vertigo, No balance problems Psychiatric: No depression symptoms, No anhedonism, No anxiety, No insomnia, No substance abuse Heme: No abnormal bleeding/bruising, No clotting problems, No swollen lymph nodes, No night sweats Endo: No fatigue, No excessive thirst, No excessive urination Skin: No rash, No itch, No new/changing skin lesions, No color change, No bleeding Objective Vital Signs Date Time Temp Pulse Resp B/P (MAP) Pulse Ox O2 Delivery O2 Flow Rate FiO2 01/01/17 07:42 36.8 56 18 105/65 (78) 93 Room Air 01/01/17 00:25 36.8 68 20 93/53 (66) 94 Room Air 01/01/17 00:00 97 Room Air 12/31/16 20:00 97 Room Air 12/31/16 15:49 Room Air 12/31/16 15:18 36.7 63 16 102/66 (78) 97 Room Air Physical Exam General Appearance: + thin Eyes: normal inspection, PERRL, EOMI, sclerae normal ENT: normal ENT inspection, hearing grossly normal, pharynx normal Neck: supple, no adenopathy, thyroid normal, no JVD, no carotid bruits, trachea midline Respiratory/Chest: chest non-tender, lungs clear, normal breath sounds, no respiratory distress, no accessory muscle use Cardiovascular: regular rate, rhythm, no edema, no gallop, no JVD, no murmur Abdomen: normal bowel sounds, non tender, soft, no organomegaly, no pulsatile mass, + tenderness (minimal) Extremities: normal range of motion, non-tender, normal inspection, no pedal edema, no calf tenderness, normal capillary refill, pelvis stable Neurologic/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: 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 nml as tested, no motor/sensory deficits, alert, normal mood/affect, oriented x 3 Skin: normal color, warm/dry, no rash Lymphatic: no adenopathy Laboratory Results Last 24 Hours Test 12/31/16 08:52 01/01/17 06:42 Sodium Level 143 mmol/L 145 mmol/L Potassium Level 3.6 mmol/L 3.6 mmol/L Chloride Level 111 mmol/L 112 mmol/L Carbon Dioxide Level 21 mmol/L 19 mmol/L Anion Gap 11.0 mmol/L 14.0 mmol/L Blood Urea Nitrogen 11 mg/dl 13 mg/dl Creatinine 1.10 mg/dl 1.60 mg/dl Est Creatinine Clear Calc Drug Dose 58.3 ml/min 40.1 ml/min Estimated GFR () 65.5 41.6 Estimated GFR (Non- 56.5 35.9 BUN/Creatinine Ratio 10.1 8.1 Random Glucose 99 mg/dl 88 mg/dl Calcium Level 8.2 mg/dl 8.5 mg/dl White Blood Count 6.72 K/uL Red Blood Count 3.65 M/uL Hemoglobin 11.1 g/dL Hematocrit 32.6 % Mean Corpuscular Volume 89.3 fL Mean Corpuscular Hemoglobin 30.4 pg Mean Corpuscular Hemoglobin Concent 34.0 g/dl RDW Standard Deviation 43.6 fL RDW Coefficient of Variation 13.2 % Platelet Count 176 K/uL Mean Platelet Volume 9.5 fL Assessment and Plan 56-year-old female admitted on 01/01/2017 because of recurrent sigmoid diverticulitis of abdominal pain, nausea and vomiting which started on 12/28. pt initially presented to the ER on 12/[address] abdomen and pelvis which was diagnostic of acute sigmoid diverticulitis. She was discharged home on oral ciprofloxacin, clindamycin and oral vancomycin. She then returned on 12/30 with increased severe nausea and vomiting, headache, and a temperature of 100.4. a past medical history of diverticulitis, history of C. difficile, and has follow-up with [facility] surgeon planning for bowel resection. Acute recurrent sigmoid diverticulitis: Improved and stable Continue IV clindamycin, IV ciprofloxacin(the patient has not tolerated metronidazole in the past) - Zofran as needed - Continue IV fluids, continue nothing by mouth, reassess in this p.m., may give clear liquid diet if continue to be stable and improving - Was on pain control with Toradol 30 mg every 6 hours, will change to morphine because of increased creatinine level, - Admission team had called and left a message with the nurse, Discussed with colorectal surgeon nurse and HOG TRADER nurse that both physicians will postpone surgery, with attempt to reschedule her in 4 weeks. They will call the patient and reschedule within 1 week. History of C. difficile: Currently has no bowel movement no diarrhea - By mouth vancomycin ordered at time of admit for ppx. Pt had negative c.diff in Jul. Sample currently uncollected. will DC oral Vanco because patient has no diarrhea Patient reported follow-up with [facility] team, will have GI consultation which was requested DVT prophylaxis: Ambulatory, teds, SCDs CODE STATUS: Full code Continued [facility] stay due to: multiple IV medications needed Discharge planning: home
[2017-01-01] MEDS: CIPROFLOXACIN / D5W 400 MG in PREMIXED IN D5W 200 ML IV SCH (08:50)
[2017-01-01] MEDS ORDERED: NURSING VERBAL MED ORDER ONE ×2 (09:15→17:45)
[2017-01-01] MEDS: VANCOMYCIN HCL 125 MG/2.5ML SOLN PO SCH ×4 (11:46→22:19)
[2017-01-01] MEDS: RASPBERRY SYRUP 5 ML UDP PO SCH ×3 (11:47→20:00)
[2017-01-01] MEDS: ERTAPENEM IV 1 GM in SODIUM CHLOR 0.9% AD-VAN 50ML IV SCH (13:40)
[2017-01-01] MEDS: ONDANSETRON INJ 2 MG/ML 2 ML VIAL IV PRN (14:35)
[2017-01-01] MEDS ORDERED: PROMETHAZINE HCL INJ 12.5 MG in SODIUM CHLORIDE 0.9% 50ML 50 ML IV ONE (18:00)
--- NOTE | 2017-01-01 23:46 | GASTROINTESTINAL CONSULTATION ---
DATE OF CONSULTATION: 01/01/2017 CHIEF COMPLAINT: Recurrent diverticulitis. HISTORY OF PRESENT ILLNESS: Mrs. Olmstead is a 56-year-old white female, who presented to the Emergency Room on 12/31/2016 with recurrent diverticulitis. The patient's prior history was complicated by C. diff infection. She presented to the Emergency Room and CT scan showed evidence of sigmoid inflammation. Although she was initially discharged on oral ciprofloxacin, clindamycin and oral vancomycin the patient returned with persistent nausea and vomiting. Pain was 3/10 and reports low-grade fever. She was admitted for IV antibiotic therapy and continued care. PAST MEDICAL HISTORY: Includes urinary tract infection and recurrent diverticulitis. The patient describes that this is her fourth attack of diverticulitis over 4 years, although they seem to be occurring at a more frequent rate. SOCIAL HISTORY: The patient denies tobacco or alcohol use. She is and lives with her family. ALLERGIES: TO IV CONTRAST, PENICILLIN AND FLAGYL. HOME MEDICATIONS: She was on clindamycin, ciprofloxacin and vancomycin orally. REVIEW OF SYSTEMS: Otherwise noncontributory based on 14-point exam except for as mentioned above. The patient denies any chest pain, shortness of breath, palpitations, skin or rash disorders. There is no significant joint ache. Neurologically, she denies any focal events. She denies melena or bright red blood per rectum. There is no hematemesis or coffee ground emesis. PHYSICAL EXAMINATION: VITAL SIGNS: The patient on admission had a temperature of 36.9, although at home she recorded a temperature of 100.4. She is 95% on room air, blood pressure 112/72, respirations are 18 and pulse 90. GENERAL: Today; the patient is awake, alert and oriented, although in [id number] discomfort by way of nausea mostly. There is mild discomfort in the left lower quadrant area. There is no rebound or guarding. HEART: Normal S1, S2. LUNGS: Clear to auscultation without rales, rhonchi or wheezes. HEENT: Sclerae are anicteric, conjunctiva moist. Oral mucosa is moist. NEUROLOGIC: Nonfocal. She ambulates well. ABDOMEN: Soft with positive bowel sounds. There is no rebound or guarding. EXTREMITIES: Without clubbing, cyanosis or edema. RECTAL: Deferred. LABORATORY STUDIES: On admission showed a white count of 8.6, hemoglobin 11.9, hematocrit 36.2, MCV 88 and platelets 209,000. BUN and creatinine are 12 and 0.96. Potassium 3.7, total bilirubin 0.9, AST 26, ALT 17, alkaline phosphatase 57, lipase 155 and total protein 7.0. CT scan on admission showed acute sigmoid diverticulitis without evidence of abscess or perforation. There is a small chronic pericardial effusion which is actually slightly improved. The patient does report that she has had this for many years, but more recently this has been worked up without a clear finding. She had parvovirus many years ago. IMPRESSION: She is on antibiotics and her current medications include ertapenem, vancomycin orally, morphine for pain, Zofran for nausea, DVT heparin and Carafate. PLAN: Given the patient's recurrent diverticulitis, she was originally scheduled for surgery with Dr. Fonseca at [facility] tomorrow. However, this will be postponed with plans to perform this in one month. We will continue with antibiotics with an acceptable regimen to cover typical coliforms and enteric organisms. At some point, we will need to determine an oral regimen upon discharge. She also should be discharged on a low-residue diet, but at the present time given her nausea would refrain from any advancement of diet and she would generally be on clears only as tolerated. We will continue any antiemetic therapy as well as any pain control that is needed. All questions were answered. Thank you for allowing me to participate in this patient's care. FERNANDO
[2017-01-02] MEDS: SODIUM CHLORIDE 0.9% 1000ML 1,000 ML IV SCH (01:32)
[2017-01-02] MEDS: SUCRALFATE 1 GM TAB PO SCH ×4 (06:19→21:00)
[2017-01-02] MEDS: HEPARIN SOD 5000 UNIT/0.5 ML CARP SQ SCH ×2 (07:42→21:00)
[2017-01-02] MEDS: RASPBERRY SYRUP 5 ML UDP PO SCH ×4 (07:42→20:00)
[2017-01-02 07:45] VITALS: BP 103/62; PULSE 96; TEMP 36.8; O2SAT 94
[2017-01-02 07:50] LABS: BUN/CREATININE RATIO 9.1 (10-20); CALCIUM 7.9 mg/dl (8.5-10.1); CREATININE 2.1 mg/dl (0.60-1.20); MAGNESIUM 2.2 mg/dl (1.8-2.4); POTASSIUM 3.8 mmol/L (3.5-5.1)
[2017-01-02 08:00] VITALS: O2SAT 94
[2017-01-02] MEDS: VANCOMYCIN HCL 125 MG/2.5ML SOLN PO SCH ×4 (08:00→21:41)
[2017-01-02] MEDS ORDERED: NURSING VERBAL MED ORDER ONE (08:45)
[2017-01-02] MEDS ORDERED: D5NSS + 20MEQ KCL 1,000 ML IV SCH (09:00)
--- NOTE | 2017-01-02 10:38 | Medical Consult ---
Consultation Date of Consultation: Jan 02, 2017. Attending Physician: Ray Caruso MD, PhD Reason for Consultation: PO abx to home History of Present Illness Patient is a 56 yo female known to myself from previous infectious diseases consultation who presented to the ED with complaints of worsening abdominal pain , nausea, and vomiting. She had initially been seen in the ED on 12/29/16 with complaints of severe abdominal pain with a history of diverticulitis and C. Diff colitis. She was also complaining at that time of myalgias in her legs and hips. She did have a CT scan completed which showed acute sigmoid diverticulitis without perforation or abscess. She was discharged home from the ED with PO Vancomycin, Clindamycin, and Ciprofloxacin. She previously tolerated this combination well following her admission in June for diverticulitis. The patient has tolerance issues with Flagyl. Unfortunately, after return home, the patient could not keep her medications down and had worsening of her abdominal pain, nausea, and vomiting. She states that her nausea and vomiting has not subsided yet, but her abdominal pain has slightly improved since admission. She was initially placed on IV Clindamycin and Cipro along with PO Vancomycin. She was then transitioned to IV Ertapenem yesterday. Her WBC count today was 6.72 and has been stable throughout admission. Her creatinine today has increased to 2.10 from 1.10 on 12/31. C. Diff toxin from 01/01 was negative. The patient was anticipating bowel surgery today actually, but is going to reschedule for 6 weeks from now. Past Medical/Surgical History Medical Problems: (1) Acute diverticulitis Status: Acute (2) Colitis Status: Acute (3) Diarrhea Status: Acute (4) Diverticulitis Status: Chronic (5) Leukocytosis Status: Acute (6) Lower abdominal pain Status: Acute Medical Problems: (1) Acute urinary tract infection (2) Diverticulitis (3) Diverticulitis Family History No pertinent family history Noncontributory Social History Smoking Status: Never Smoker Drug Use: none Marital Status: Occupation Status: employed Allergies Coded Allergies: Iodinated Diagnostic Agents (Verified Allergy, Unknown, ACHY,NAUSEA,WEAK, 12/29/16) Penicillins (Verified Allergy, Unknown, 12/29/16) Metronidazole (Verified Adverse Reaction, Intermediate, "PHYSICALLY UNCOMFORTABLE", 12/29/16) Home Medications Reported Home Medications Medications Dose Route/Sig Max Daily Dose Days Date Category Vancomycin HCl 125 Mg/2.5 Ml Susp 125 Mg PO QID 10 12/29/16 Rx Cleocin (Clindamycin Hcl) 300 Mg Cap 300 Mg PO TID 10 12/29/16 Rx Cipro (Ciprofloxacin Hcl) 500 Mg Tab 500 Mg PO BID 12/29/16 Rx Current Inpatient Medications Current Inpatient Medications Medications (Trade) Dose Ordered Sig/Jovan Route Start Time Stop Time Status Last Admin Dose Admin Heparin Sodium (Porcine) (Heparin Sq 5000 Unit/0.5ml) 5,000 unit Q8H SQ 12/31/16 08:00 01/30/17 07:59 Ondansetron HCl (Zofran Inj) 4 mg Q6H PRN IV 12/31/16 00:15 01/30/17 00:14 01/01/17 14:35 4 MG Sucralfate (Carafate Tab) 1 gm ACHS PO 12/31/16 16:30 01/30/17 16:29 01/02/17 06:19 1 GM Morphine Sulfate (MoRPHine SULFATE INJ) 4 mg Q4 PRN IV 01/01/17 08:45 01/15/17 08:44 Vancomycin HCl (Vancomycin Oral Soln) 125 mg QID PO 01/01/17 12:00 01/15/17 11:59 01/01/17 17:50 125 MG Raspberry (Raspberry Syrup 5ml Cup) 5 ml QID PO 01/01/17 12:00 01/15/17 11:59 Ertapenem 1 gm/ Sodium Chloride 50 ml @ 100 mls/hr DAILY@1200 IV 01/01/17 13:00 01/11/17 12:59 01/01/17 13:40 100 MLS/HR Potassium Chloride/Dextrose/ Sod Cl 1,000 ml @ 125 mls/hr Q8H IV 01/02/17 09:00 02/01/17 08:59 01/02/17 09:12 125 MLS/HR Review of Systems Constitutional: + fatigue, No fever, No weakness Eyes: No worsening of vision ENT: No hearing loss, No sore throat Respiratory: No cough, No shortness of breath Cardiovascular: No chest pain, No palpitations Abdomen: + pain, + nausea, + vomiting Musculoskeletal: No muscle pain, No swelling Genitourinary - Female: No dysuria, No urinary frequency, No urinary urgency Integumentary: No rash, No itch Physical Exam Date Time Temp Pulse Resp B/P (MAP) Pulse Ox O2 Delivery O2 Flow Rate FiO2 01/02/17 08:00 94 Room Air 01/02/17 07:45 36.8 96 20 103/62 (76) 94 Room Air 01/02/17 00:00 Room Air 01/01/17 23:24 36.8 61 18 107/63 (78) 96 Room Air 01/01/17 16:00 Room Air 01/01/17 15:12 36.5 57 20 109/68 (82) 99 Room Air 01/01/17 11:25 36.6 89 16 114/70 (85) 98 Nasal Cannula 0.5 General Appearance: WD/WN, + mild distress (nausea, abdominal pain) Head: normocephalic, atraumatic Eyes: normal inspection, sclerae normal ENT: hearing grossly normal Neck: supple, trachea midline Respiratory/Chest: chest non-tender, lungs clear, normal breath sounds, no respiratory distress, no accessory muscle use Cardiovascular: regular rate, rhythm, no murmur Abdomen/GI: normal bowel sounds, soft, + tenderness (lower mid abdominal tenderness) Back: normal inspection Extremities/Musculoskelatal: normal inspection, no pedal edema, normal range of motion Neurologic/Psych: alert, normal mood/affect, oriented x 3 Skin: warm/dry, no rash Laboratory Results Item Value Date Time C.difficile Toxin B Gene (PCR) - Final Complete 01/01/17 1748 Stool No C. difficile toxin B gene detected Last 24 Hours Test 01/02/17 06:43 01/02/17 07:59 Sodium Level 147 mmol/L Potassium Level 3.8 mmol/L Chloride Level 116 mmol/L Carbon Dioxide Level 15 mmol/L Anion Gap 16.0 mmol/L Blood Urea Nitrogen 19 mg/dl Creatinine 2.10 mg/dl Est Creatinine Clear Calc Drug Dose 30.5 ml/min Estimated GFR () 30.0 Estimated GFR (Non- 25.8 BUN/Creatinine Ratio 9.1 Random Glucose 64 mg/dl Calcium Level 7.9 mg/dl Magnesium Level 2.2 mg/dl Bedside Glucose 65 mg/dl Assessment & Plan Patient with acute diverticulitis in the setting of multiple previous episodes of diverticulitis and history of recurrent C. Diff colitis. The patient is currently on IV Ertapenem and continues to have nausea but feels her abdominal pain is improving. Recommend continuing IV Ertapenem pending improvement of the patient's symptoms and tolerance of PO intake. Once she is tolerating PO, she could transition back to PO Clindamycin, Cipro, and Vancomycin or continue IV Ertapenem at home to complete 10 days along with PO Vancomycin to prevent C. Diff recurrence. We will follow. PROVIDER ADDENDUM: Patient examined and reviewed with Ms. Thompson. Agree with above assessment.
[2017-01-02] MEDS: ERTAPENEM IV 1 GM in SODIUM CHLOR 0.9% AD-VAN 50ML IV SCH (11:24)
--- NOTE | 2017-01-02 11:26 | Progress Note ---
Subjective Date of Service: Jan 02, 2017. Subjective Pt evaluation today including: conversation w/ patient, physical exam, chart review, lab review, review of studies, conversation w/ supply chain consultant, review of inpatient medication list report nausea /vomiting from yesterday, has 2-3 times small amount , but a lot heave, has bowel movement yesterday and today Report of bilateral lower back pain Problem List Medical Problems: (1) Acute diverticulitis Status: Acute (2) Colitis Status: Acute (3) Diarrhea Status: Acute (4) Diverticulitis Status: Chronic (5) Leukocytosis Status: Acute (6) Lower abdominal pain Status: Acute Review of Systems Constitutional: No fever, No chills, No sweats, No weight loss, No weakness, No fatigue, No problem reported Eyes: No worsening of vision, No eye pain, No redness, No discharge, No diplopia ENT: No hearing loss, No unusual epistaxis, No nasal symptoms, No sore throat, No tinnitus, No dental problems, No trouble swallowing Respiratory: No cough, No sputum, No wheezing, No shortness of breath, No dyspnea on exertion, No dyspnea at rest, No hemoptysis Cardiac: No chest pain, No orthopnea, No PND, No edema, No claudication, No palpitations Abdomen: + see HPI, + nausea, + vomiting, No pain, No diarrhea, No constipation Musculoskeletal: No joint pain, No muscle pain, No swelling, No calf pain Female : No dysuria, No urinary frequency, No hematuria, No incontinence, No abnormal vaginal bleeding, No vaginal discharge Neurologic: No memory loss, No paralysis, No weakness, No numbness/tingling, No vertigo, No balance problems Psychiatric: No depression symptoms, No anhedonism, No anxiety, No insomnia, No substance abuse Heme: No abnormal bleeding/bruising, No clotting problems, No swollen lymph nodes, No night sweats Endo: No fatigue, No excessive thirst, No excessive urination Skin: No rash, No itch, No new/changing skin lesions, No color change, No bleeding Objective Vital Signs Date Time Temp Pulse Resp B/P (MAP) Pulse Ox O2 Delivery O2 Flow Rate FiO2 01/02/17 08:00 94 Room Air 01/02/17 07:45 36.8 96 20 103/62 (76) 94 Room Air 01/02/17 00:00 Room Air 01/01/17 23:24 36.8 61 18 107/63 (78) 96 Room Air 01/01/17 16:00 Room Air 01/01/17 15:12 36.5 57 20 109/68 (82) 99 Room Air 01/01/17 11:25 36.6 89 16 114/70 (85) 98 Nasal Cannula 0.5 Physical Exam General Appearance: WD/WN, no apparent distress, + thin, + pertinent finding ( pleasant conversational) Eyes: normal inspection, PERRL, EOMI, sclerae normal ENT: normal ENT inspection, hearing grossly normal, pharynx normal Neck: supple, no adenopathy, thyroid normal, no JVD, no carotid bruits, trachea midline Respiratory/Chest: chest non-tender, normal breath sounds, no respiratory distress, no accessory muscle use, + decreased breath sounds Cardiovascular: regular rate, rhythm, no edema, no gallop, no JVD, no murmur Abdomen: normal bowel sounds, non tender, soft, no organomegaly, no pulsatile mass, + pertinent finding (bilateral kidney area mild tender) Extremities: normal range of motion, non-tender, normal inspection, no pedal edema, no calf tenderness, normal capillary refill, pelvis stable Neurologic/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: 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 of 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 II-XII nml as tested, no motor/sensory deficits, alert, normal mood/affect, oriented x 3 Skin: normal color, warm/dry, no rash Lymphatic: no adenopathy Laboratory Results Last 24 Hours Test 01/02/17 06:43 01/02/17 07:59 Sodium Level 147 mmol/L Potassium Level 3.8 mmol/L Chloride Level 116 mmol/L Carbon Dioxide Level 15 mmol/L Anion Gap 16.0 mmol/L Blood Urea Nitrogen 19 mg/dl Creatinine 2.10 mg/dl Est Creatinine Clear Calc Drug Dose 30.5 ml/min Estimated GFR () 30.0 Estimated GFR (Non- 25.8 BUN/Creatinine Ratio 9.1 Random Glucose 64 mg/dl Calcium Level 7.9 mg/dl Magnesium Level 2.2 mg/dl Bedside Glucose 65 mg/dl Assessment and Plan 56-year-old female admitted on 01/01/2017 because of recurrent sigmoid diverticulitis of abdominal pain, nausea and vomiting which started on 12/28, now has nausea, and has acute kidney failure pt initially presented to the ER on 12/[address] abdomen and pelvis which was diagnostic of acute sigmoid diverticulitis. She was discharged home on oral ciprofloxacin, clindamycin and oral vancomycin. She then returned on 12/30 with increased severe nausea and vomiting, headache, and a temperature of 100.4. a past medical history of diverticulitis, history of C. difficile, and has follow-up with [facility] planning for bowel resection. Acute recurrent sigmoid diverticulitis: Possible stable Was on V clindamycin, and IV ciprofloxacin(the patient has not tolerated metronidazole in the past) - Zofran as needed - Has requested ID consult for the options of antibiotic when discharging - Was on pain control with Toradol 30 mg every 6 hours, was changed to morphine because of increased creatinine level yesterday - Admission team had called and left a message with the nurse, Discussed with colorectal surgeon nurse and PROJECT COORDINATOR nurse that both physicians will postpone surgery, with attempt to reschedule her in 4 weeks. They will call the patient and reschedule within 1 week. History of C. difficile: Currently has no bowel movement no diarrhea - By mouth vancomycin ordered at time of admit for ppx. Pt had negative c.diff in Jul. Sample currently uncollected. Continue oral Vanco because patient is sensitive to antibiotics Acute kidney failure, creatinine 1.6 today up to 2.3 Etiology unknown, possible dehydration, however she is getting plenty IV fluid I believe it is adequate amount Some other reason causing acute kidney failure, such as pain medicine Toradol when she was admitted? Which was discontinued yesterday Abdominal CT studies was not remarkable for their kidney ureter bladder, I will continue IV fluid Bilateral renal ultrasound Request nephrology consult Avoid renal offensive medicine Mild hypernatremia change IV fluid to D5 half normal saline, and we'll remove potassium from IV fluid because of acute kidney failure Patient reported follow-up with [facility] team, will have GI consultation which was requested DVT prophylaxis: Ambulatory, teds, SCDs CODE STATUS: Full code Continued [facility] stay due to: multiple IV medications needed Discharge planning: home
[2017-01-02 11:58] LABS: URINE APPEARANCE CLEAR (CLEAR); URINE BILIRUBIN NEG (NEG); URINE COLOR YELLOW; URINE EPITHELIAL CELL AUTO >30 /lpf (0-5); URINE NITRITE NEG (NEG); URINE PH 5.5 (4.5-7.5); URINE SPECIFIC GRAVITY 1.015 (1.000-1.030); UROBILINOGEN NEG (NEG)
[2017-01-02 11:59] LABS: MANUAL MICROSCOPIC REQUIRED? NO; REVIEW REQ? YES
[2017-01-02] MEDS ORDERED: D5W AND 1/2NSS + 20MEQ KCL 1,000 ML IV SCH (12:00)
[2017-01-02] MEDS: FAMOTIDINE IV INJ 20 MG in DEXTROSE 5% 100ML 100 ML IV SCH (12:59)
[2017-01-02 15:15] VITALS: BP 110/71; PULSE 54; TEMP 36.8; O2SAT 97
--- NOTE | 2017-01-02 15:34 | DIAGNOSTIC IMAGING REPORT ---
ULTRASOUND KIDNEYS AND BLADDER CLINICAL HISTORY: Acute renal insufficiency. COMPARISON STUDY: Abdominal CT dated 12/29/2016. TECHNIQUE: Real-time, grayscale, and color flow sonography of the kidneys and bladder is performed. Images are reviewed in the transverse and longitudinal planes. FINDINGS: Kidneys: The kidneys are normal in size and echotexture. The right kidney measures 12.6 x 4.2 x 5.1 cm and the left kidney measures 12.2 x 5.2 x 5.5 cm. There is no hydronephrosis. No shadowing renal calculi are identified. There is no sonographic evidence of contour deforming renal mass lesion. No perinephric fluid is identified. Bladder: The bladder is partially decompressed and grossly normal in appearance. Bilateral ureteral jets were seen. IMPRESSION: Unremarkable sonographic assessment of the kidneys and bladder. Electronically signed by: Sudhir Melchor M.D. 01/02/2017 3:33 PM Dictated Date/Time: 01/02/2017 3:32 PM
--- NOTE | 2017-01-02 15:46 | Nephrology Consultation ---
Nephrology Consultation Date & Providers Date of Consultation: Jan 02, 2017. Primary Care Provider: Magnolia Pisano M.D. Referring Provider: Reason for Consultation Evaluation and management for acute kidney injury and metabolic acidosis. History of Present Illness Elena is a 56-year-old female with history of recurrent diverticulitis,history of C diff colitis admitted to the hospital with acute diverticulitis. Nephrologic consult was requested as the patient developed acute kidney injury and metabolic acidosis. Electronic medical records are reviewed in detail during patient's visit. Elena initially presented to the emergency department on 12/29/2016 with abdominal pain nausea and vomiting. CT scan of abdomen and pelvis w/o contrast on admission showed acute sigmoid diverticulitis, she was started on oral ciprofloxacin and clindamycin and discharged from the emergency department. After discharge she continues to have worsening abdominal pain, nausea, vomiting and came back to ED following day and was admitted on 12/31/2016. She was initially started on IV clindamycin and ciprofloxacin which currently switched to IV Invanz and continued on oral vancomycin. She has history of recurrent diverticulitis and she was scheduled to have colon resection today at [facility] which now postponed. Elena has no history of chronic kidney disease, her baseline creatinine has been around 0.8-0.9. She developed acute kidney injury and creatinine started to go up since yesterday, creatinine was 1.6 which worsened today to 2.1. Urinalysis positive for proteinuria, hematuria but no pyuria, however it urinalysis from 3 days ago was negative for proteinuria. she remained afebrile, no skin rash. She had CT abdomen pelvis on 12/29/2016 which was a noncontrast and apparently kidneys were otherwise unremarkable. She reports noticing decreased urine output since yesterday. She also has gap metabolic acidosis as well as hypernatremia. Her blood pressure was electively low and she was having nausea and vomiting at home. Continues to have nausea and dry heaving Blood pressure now improved and stable. She has been on IV fluid. No history of hypertension, diabetes or coronary artery disease. No history of chronic NSAID use. She is a nonsmoker. no family history of chronic kidney disease. 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 Allergies Coded Allergies: Iodinated Diagnostic Agents (Verified Allergy, Unknown, ACHY,NAUSEA,WEAK, 12/29/16) Penicillins (Verified Allergy, Unknown, 12/29/16) Metronidazole (Verified Adverse Reaction, Intermediate, "PHYSICALLY UNCOMFORTABLE", 12/29/16) Inpatient Medications Current Inpatient Medications Medications (Trade) Dose Ordered Sig/Jovan Route Start Time Stop Time Status Last Admin Dose Admin Ondansetron HCl (Zofran Inj) 4 mg Q6H PRN IV 12/31/16 00:15 01/30/17 00:14 01/01/17 14:35 4 MG Sucralfate (Carafate Tab) 1 gm ACHS PO 12/31/16 16:30 01/30/17 16:29 01/02/17 11:25 1 GM Morphine Sulfate (MoRPHine SULFATE INJ) 4 mg Q4 PRN IV 01/01/17 08:45 01/15/17 08:44 Vancomycin HCl (Vancomycin Oral Soln) 125 mg QID PO 01/01/17 12:00 01/15/17 11:59 01/02/17 11:24 125 MG Raspberry (Raspberry Syrup 5ml Cup) 5 ml QID PO 01/01/17 12:00 01/15/17 11:59 Ertapenem 1 gm/ Sodium Chloride 50 ml @ 100 mls/hr DAILY@1200 IV 01/01/17 13:00 01/11/17 12:59 01/02/17 11:24 100 MLS/HR Heparin Sodium (Porcine) (Heparin Sq 5000 Unit/0.5ml) 5,000 unit Q12 SQ 01/02/17 21:00 01/30/17 07:59 Potassium Chloride/Dextrose/ Sod Cl 1,000 ml @ 125 mls/hr Q8H IV 01/02/17 12:00 02/01/17 11:59 Famotidine 20 mg/ Dextrose 102 ml @ 200 mls/hr Q12H IV 01/02/17 12:00 02/01/17 11:59 Family History No pertinent family history Social History Smoking Status: Never Smoker Drug Use: none Marital Status: Housing Status: lives with family Occupation: employed Review of Systems A complete review of systems was performed. Pertinent positives are noted above. All other systems are negative. Physical Exam Date Time Temp Pulse Resp B/P (MAP) Pulse Ox O2 Delivery O2 Flow Rate FiO2 01/02/17 08:00 94 Room Air 01/02/17 07:45 36.8 96 20 103/62 (76) 94 Room Air 01/02/17 00:00 Room Air 01/01/17 23:24 36.8 61 18 107/63 (78) 96 Room Air 01/01/17 16:00 Room Air 01/01/17 15:12 36.5 57 20 109/68 (82) 99 Room Air GENERAL: Middle-aged female, AAA x 3, pleasant, ill-appearing, not in any distress. HEENT: Atraumatic, normocephalic. NECK: Supple, no JVD, no carotid bruit appreciated. ENT: No sinus tenderness MOUTH and THROAT: Moist oral mucosa, no oral ulcer or pharyngeal erythema RESPIRATORY: Normal breathing efforts, no accessory muscle use, clear to auscultation bilaterally, no wheezes or rales. CARDIOVASCULAR: S1, S2 normal, rate rhythm regular. ABDOMEN: Soft, nontender, positive bowel sound. MUSCULOSKELETAL: No CVA tenderness. No joint swelling, erythema or tenderness. Normal range of motion. SKIN: No skin rash EXTREMITY: No lower extremity edema NEURO: No gross focal neurological deficit, speech fluent. PSYCHIATRY: Normal mood and judgment Laboratory Results Last 24 Hours Test 01/02/17 06:43 01/02/17 07:59 01/02/17 11:30 Sodium Level 147 mmol/L Potassium Level 3.8 mmol/L Chloride Level 116 mmol/L Carbon Dioxide Level 15 mmol/L Anion Gap 16.0 mmol/L Blood Urea Nitrogen 19 mg/dl Creatinine 2.10 mg/dl Est Creatinine Clear Calc Drug Dose 30.5 ml/min Estimated GFR () 30.0 Estimated GFR (Non- 25.8 BUN/Creatinine Ratio 9.1 Random Glucose 64 mg/dl Calcium Level 7.9 mg/dl Magnesium Level 2.2 mg/dl Bedside Glucose 65 mg/dl Impression (1) Acute kidney injury (2) Metabolic acidosis (3) Proteinuria (4) Hematuria (5) Diverticulitis Elena is a 56-year-old female with history of recurrent diverticulitis and C diff infection admitted to the hospital with acute diverticulitis. No history of chronic kidney disease, hypertension, diabetes or coronary artery disease. Baseline creatinine has been 0.8-0.9. No history of prior proteinuria. Had noncontrast CT scan done 3 days ago. Her blood pressure has been relatively soft. Developed acute kidney injury and creatinine started to go up since yesterday when creatinine was 1.6 which worsened to 2.1 this morning. Urinalysis showing low grade proteinuria and microscopic hematuria without any pyuria or bacteriuria. She has been afebrile, no skin rash or arthralgia, noticed decreased urine output since yesterday. Blood pressure has been electively is soft, at home she was having nausea and vomiting. Acute kidney injury most likely secondary to prerenal versus ATN with volume depletion and hypotension. although she has been on antibiotics for last 3/ 4 days, unlikely acute interstitial nephritis considering no pyuria on urinalysis. Postrenal obstruction seems less likely. Prior record review shows she has microscopic hematuria from before however no history of proteinuria. Recommendations -- change IV fluid to D5 with bicarbonate --monitor intake and output --avoid nephrotoxins medications, continue hemodynamics support, avoid hypotension --continue to monitor renal function daily, expect renal function to stabilize with improvement in volume status and blood pressure -- repeat UA to f/u for proteinuria and hematuria once acute kidney injury recover -- if renal function continues to worsen, will consider other workup, including inflammatory marker and serological workup -- explained the current status of her kidney function to patient and her in detail and answered questions Thank you for allowing me to participate in your patient's care. It was a pleasure to see Elena This chart was completed utilizing [employer] Speech and voice recognition software. Grammatical errors, random word insertions, pronoun errors and incomplete sentences are occasional consequences of this system. Any questions or concerns about the content, text or information contained within the body of this dictation should be addressed directly to the physician for clarification.
[2017-01-02] MEDS: SODIUM BICARBONATE 8.4% INJ 150 MEQ in DEXTROSE 5% 1000ML 1,000 ML IV SCH (16:49)
--- NOTE | 2017-01-02 19:19 | GASTROENTEROLOGY PROGRESS NOTE ---
DATE: 01/02/2017 SUBJECTIVE: The patient has a more frequent nausea and does not time this to her antibiotic regimen. Her renal function shows a slight increase in creatinine from a baseline of 0.96 on December 30 to 2.1 today. This may represent the timing of her change antibiotics to ertapenem on January 01. The patient has less abdominal pain at this point and was able to have a bowel movement which swas nonbloody. She did tolerate Jell-O sugar free. In the past, she has had trouble with Zofran making her feel poorly and not relieving nausea and had a Phenergan which had caused her to feel confused. In the past, Zantac has also been a problem for her and believes this may also be creating some of her symptoms. REVIEW OF SYSTEMS: Otherwise noncontributory. LABORATORY STUDIES: Today, sodium 147, BUN 19, creatinine 2.0, magnesium 7.9, glucose is slightly low at 65 at point of care. On admission, LFTs were completely normal as was lipase normal. White count 6.7, hemoglobin 11.1, platelets 176,000. PHYSICAL EXAMINATION: GENERAL: The patient is awake, alert and oriented x3 and accompanied by her . HEENT: Oral mucosa is slightly parched. HEART: Normal S1, S2. LUNGS: Clear to auscultation. ABDOMEN: Soft, nontender, nondistended with good bowel sounds. EXTREMITIES: Without clubbing, cyanosis or edema. RECTAL: Deferred. The patient reports that she feels as though her urine output is diminished. It would appear that she has had approximately 1400 mL of urine output through January 01 midnight. Today her total output is 500 mL. PLAN: Unclear if change in antibiotic coverage is responsible for her mild renal insufficiency. There is a diminution of urine output. The patient is receiving a fluid challenge. RECOMMENDATIONS: I made the following recommendations. Would continue IV fluids challenge with Is, and Os and consider urinalysis to exclude acute interstitial nephritis. At the present time, the patient will not like to try any other antinausea or acid suppressing drugs. Her magnesium level is satisfactory and it is reasonable to consider a single dose of Mylanta or Gaviscon to see if this curbs some of her nausea. Also if possible a full liquid diet is reasonable if tolerated, but again would maintain no more than a low residue diet if advanced. We will need to determine a suitable IV and/or oral antibiotic coverage given her ALLERGY TO PENICILLIN, her symptoms with Cipro. She has tolerated Bactrim in the past. All questions answered.
[2017-01-02 23:59] LABS: URINE APPEARANCE CLEAR (CLEAR); URINE BILIRUBIN NEG (NEG); URINE COLOR YELLOW; URINE EPITHELIAL CELL AUTO >30 /lpf (0-5); URINE NITRITE NEG (NEG); URINE SPECIFIC GRAVITY 1.016 (1.000-1.030); UROBILINOGEN NEG (NEG)
[2017-01-03 00:01] VITALS: BP 116/72; PULSE 65; TEMP 37.4; O2SAT 94
[2017-01-03 00:04] LABS: MANUAL MICROSCOPIC REQUIRED? NO; REVIEW REQ? YES
[2017-01-03] MEDS: FAMOTIDINE IV INJ 20 MG in DEXTROSE 5% 100ML 100 ML IV SCH ×4 (00:05→11:08)
[2017-01-03 00:19] LABS: URINE PROTIEN/CREAT RATIO 1.4 (0-0.2); URINE TOTAL PROTEIN 182.7 mg/dl (0-11.9)
[2017-01-03] MEDS: SODIUM BICARBONATE 8.4% INJ 150 MEQ in DEXTROSE 5% 1000ML 1,000 ML IV SCH (01:06)
[2017-01-03] MEDS: SUCRALFATE 1 GM TAB PO SCH ×4 (06:18→21:00)
[2017-01-03 07:03] LABS: HEMATOCRIT 31.7 % (37-47); MEAN CELL VOLUME 88.1 fL (80-100); MEAN CORPUSCULAR HEMOGLOBIN 30.3 pg (25-34); MEAN CORPUSCULAR HGB CONC 34.4 g/dl (32-36); MEAN PLATELET VOLUME 9.5 fL (7.4-10.4); PLATELET COUNT 172 K/uL (130-400); WHITE BLOOD COUNT 7.53 K/uL (4.8-10.8)
[2017-01-03 07:16] VITALS: BP 109/67; PULSE 66; TEMP 37.3; O2SAT 93
[2017-01-03 07:35] LABS: BUN/CREATININE RATIO 8.8 (10-20); CALCIUM 7.8 mg/dl (8.5-10.1); CREATININE 2.5 mg/dl (0.60-1.20); MAGNESIUM 2.2 mg/dl (1.8-2.4); POTASSIUM 3.3 mmol/L (3.5-5.1)
[2017-01-03] MEDS: RASPBERRY SYRUP 5 ML UDP PO SCH ×4 (07:52→20:30)
[2017-01-03] MEDS: HEPARIN SOD 5000 UNIT/0.5 ML CARP SQ SCH ×2 (07:52→21:00)
[2017-01-03 08:00] VITALS: O2SAT 93
[2017-01-03] MEDS: POTASSIUM CHLORIDE INJ 40 MEQ in DEXTROSE 5% 1000ML 1,000 ML IV SCH ×2 (08:08→18:24)
[2017-01-03] MEDS: VANCOMYCIN HCL 125 MG/2.5ML SOLN PO SCH ×4 (08:08→20:30)
--- NOTE | 2017-01-03 10:36 | Nephrology Progress Note ---
Nephrology Progress Note Date of Service Jan 03, 2017. Chief Complaint F/U for acute kidney injury and proteinuria. Subjective Elena was seen and examined in her room this am. She has been feeling puffy and feels like she is retaining fluid, UO lower than her normal but measured UO >1 L. Renal function continues to worsen, cr 2.5, PCR 1.4. BP stable. Continues to have nausea and anorexia. Review of Systems A complete review of systems was performed. Pertinent positives are noted above. All other systems are negative. Vital Signs Last 8 Hrs Date Time Temp Pulse Resp B/P (MAP) Pulse Ox O2 Delivery O2 Flow Rate FiO2 01/03/17 08:00 93 Room Air 01/03/17 07:16 37.3 66 16 109/67 (81) 93 Room Air Last Recorded Weight Weight (Kilograms): 66.000 Physical Exam GENERAL: middle aged female, AAA x 3, pleasant, healthy-appearing, not in any distress. NECK: Supple, no JVD. RESPIRATORY: Normal breathing efforts, no accessory muscle use, clear to auscultation bilaterally, no wheezes or rales. CARDIOVASCULAR: S1, S2 normal, rate rhythm regular. EXTREMITY: No lower extremity edema NEURO: speech fluent. PSYCHIATRY: Normal mood and judgment Family History No pertinent family history Social History Smoking Status: Former smoker Drug Use: none Marital Status: Housing Status: lives with family Occupation: employed Laboratory Results Past 24 Hours 01/03/17 06:21 01/03/17 06:21 Test 01/02/17 11:30 01/02/17 22:00 01/03/17 06:21 01/03/17 08:30 Urine Color YELLOW YELLOW Urine Appearance CLEAR (CLEAR) CLEAR (CLEAR) Urine pH 5.5 (4.5-7.5) 6.0 (4.5-7.5) Urine Specific [place] 1.015 (1.000-1.030) 1.016 (1.000-1.030) Urine Protein 3+ (NEG) 3+ (NEG) Urine Glucose (UA) NEG (NEG) NEG (NEG) Urine Ketones 2+ (NEG) 1+ (NEG) Urine Occult Blood 1+ (NEG) 1+ (NEG) Urine Nitrite NEG (NEG) NEG (NEG) Urine Bilirubin NEG (NEG) NEG (NEG) Urine Urobilinogen NEG (NEG) NEG (NEG) Urine Leukocyte Esterase NEG (NEG) TRACE (NEG) Urine WBC (Auto) 1-5 /hpf (0-5) 5-10 /hpf (0-5) Urine RBC (Auto) 0-4 /hpf (0-4) 5-10 /hpf (0-4) Urine Hyaline Casts (Auto) 1-5 /lpf (0-5) 1-5 /lpf (0-5) Urine Epithelial Cells (Auto) >30 /lpf (0-5) >30 /lpf (0-5) Urine Bacteria (Auto) NEG (NEG) NEG (NEG) Urine Renal Epithelial Cells /lpf (0-5) 5-10 /lpf (0-5) Urine Random Creatinine 130.0 mg/dl Urine Random Total Protein 182.7 mg/dl (0-11.9) Urine Protein/Creatinine Ratio 1.4 (0-0.2) Red Blood Count 3.60 M/uL (4.2-5.4) Mean Corpuscular Volume 88.1 fL (80-100) Mean Corpuscular Hemoglobin 30.3 pg (25-34) Mean Corpuscular Hemoglobin Concent 34.4 g/dl (32-36) RDW Standard Deviation 43.1 fL (36.4-46.3) RDW Coefficient of Variation 13.3 % (11.5-14.5) Mean Platelet Volume 9.5 fL (7.4-10.4) Anion Gap 10.0 mmol/L (3-11) Est Creatinine Clear Calc Drug Dose 25.6 ml/min Estimated GFR () 24.3 Estimated GFR (Non- 20.9 BUN/Creatinine Ratio 8.8 (10-20) Calcium Level 7.8 mg/dl (8.5-10.1) Magnesium Level 2.2 mg/dl (1.8-2.4) C-Reactive Protein 1.67 mg/dl (0-0.29) Test 01/03/17 10:00 Allergies Coded Allergies: Iodinated Diagnostic Agents (Verified Allergy, Unknown, ACHY,NAUSEA,WEAK, 12/29/16) Penicillins (Verified Allergy, Unknown, 12/29/16) Metronidazole (Verified Adverse Reaction, Intermediate, "PHYSICALLY UNCOMFORTABLE", 12/29/16) Medications Current Inpatient Medications Medications (Trade) Dose Ordered Sig/Jovan Route Start Time Stop Time Status Last Admin Dose Admin Ondansetron HCl (Zofran Inj) 4 mg Q6H PRN IV 12/31/16 00:15 01/30/17 00:14 01/01/17 14:35 4 MG Sucralfate (Carafate Tab) 1 gm ACHS PO 12/31/16 16:30 01/30/17 16:29 01/02/17 11:25 1 GM Morphine Sulfate (MoRPHine SULFATE INJ) 4 mg Q4 PRN IV 01/01/17 08:45 01/15/17 08:44 Vancomycin HCl (Vancomycin Oral Soln) 125 mg QID PO 01/01/17 12:00 01/15/17 11:59 01/03/17 08:08 125 MG Raspberry (Raspberry Syrup 5ml Cup) 5 ml QID PO 01/01/17 12:00 01/15/17 11:59 Heparin Sodium (Porcine) (Heparin Sq 5000 Unit/0.5ml) 5,000 unit Q12 SQ 01/02/17 21:00 01/30/17 07:59 Famotidine 20 mg/ Dextrose 102 ml @ 200 mls/hr Q12H IV 01/02/17 12:00 02/01/17 11:59 01/02/17 12:59 200 MLS/HR Potassium Chloride 40 meq/ Dextrose 1,020 ml @ 100 mls/hr [id number] IV 01/03/17 08:00 02/02/17 07:59 01/03/17 08:08 100 MLS/HR Ertapenem 500 mg/ Sodium Chloride 55 ml @ 110 mls/hr DAILY@1200 IV 01/03/17 12:00 01/11/17 11:59 Impression (1) Acute kidney injury (2) Metabolic acidosis (3) Proteinuria (4) Hematuria (5) Diverticulitis Elena is a 56-year-old female with history of recurrent diverticulitis and C diff infection admitted to the hospital with acute diverticulitis. No history of chronic kidney disease, hypertension, diabetes or coronary artery disease. Baseline creatinine has been 0.8-0.9. No history of prior proteinuria. Had noncontrast CT scan done 3 days ago. Her blood pressure has been relatively soft. Developed acute kidney injury and creatinine worsening over last 3 days from 1.0 to 2.5 this morning. Urinalysis showing proteinuria and microscopic hematuria without any pyuria or bacteriuria. She has been afebrile, no skin rash or arthralgia, noticed decreased urine output since yesterday. Blood pressure has been electively soft. Acute kidney injury most likely secondary to prerenal versus ATN with volume depletion and hypotension. although she has been on antibiotics for last 3/ 4 days, unlikely acute interstitial nephritis considering no pyuria on urinalysis. Possibility for other intrinsic renal pathology such as vasculitis, acute GN remains. No postrenal obstruction on USG. Prior record review shows she has microscopic hematuria from before however no history of proteinuria. Recommendations --change IV fluid to D5W with KCL --24 h urine for better assessment of proteinuria --serological w/u considering continued worsening of renal function --would not consider empiric Rx with high dose steroid considering acute diverticulitis --monitor intake and output --avoid nephrotoxins medications, continue hemodynamics support, avoid hypotension --continue to monitor renal function daily -- if renal function continues to worsen, will consider transferring to [facility] where she can have renal biopsy for definitive diagnosis and started on steroid if indicated -- explained the current status of her kidney function to patient and discussed the plan in detail. Pt verbalized understanding and agreeable to the above plan Will follow
[2017-01-03] MEDS: ERTAPENEM IV 500 MG in SODIUM CHLORIDE 0.9% 50 ML IV SCH (11:49)
--- NOTE | 2017-01-03 12:10 | Progress Note ---
Subjective Date of Service: Jan 03, 2017. Subjective Pt evaluation today including: conversation w/ patient, physical exam, chart review, lab review, review of studies, conversation w/ mergers and acquisitions consultant, review of inpatient medication list Report severe nausea and upper gastric area uncomfortable, not able to keep any food down, Abdominal area is sore, but no obvious pain when palpation Has bowel movement, and passing gas , no diarrhea Report Pepcid IV make her feel worse Problem List Medical Problems: (1) Acute diverticulitis Status: Acute (2) Colitis Status: Acute (3) Diarrhea Status: Acute (4) Diverticulitis Status: Chronic (5) Leukocytosis Status: Acute (6) Lower abdominal pain Status: Acute Review of Systems Constitutional: + fatigue, No fever, No chills, No sweats, No weight loss, No weakness, No problem reported Eyes: No worsening of vision, No eye pain, No redness, No discharge, No diplopia ENT: No hearing loss, No unusual epistaxis, No nasal symptoms, No sore throat, No tinnitus, No dental problems, No trouble swallowing Respiratory: No cough, No sputum, No wheezing, No shortness of breath, No dyspnea on exertion, No dyspnea at rest, No hemoptysis Cardiac: No chest pain, No orthopnea, No PND, No edema, No claudication, No palpitations Abdomen: + pain, No nausea, No vomiting, No diarrhea, No constipation Musculoskeletal: No joint pain, No muscle pain, No swelling, No calf pain Female : No dysuria, No urinary frequency, No hematuria, No incontinence, No abnormal vaginal bleeding, No vaginal discharge Neurologic: No memory loss, No paralysis, No weakness, No numbness/tingling, No vertigo, No balance problems Psychiatric: No depression symptoms, No anhedonism, No anxiety, No insomnia, No substance abuse Heme: No abnormal bleeding/bruising, No clotting problems, No swollen lymph nodes, No night sweats Endo: No fatigue, No excessive thirst, No excessive urination Skin: No rash, No itch, No new/changing skin lesions, No color change, No bleeding Objective Vital Signs Date Time Temp Pulse Resp B/P (MAP) Pulse Ox O2 Delivery O2 Flow Rate FiO2 01/03/17 08:00 93 Room Air 01/03/17 07:16 37.3 66 16 109/67 (81) 93 Room Air 01/03/17 00:15 Room Air 01/03/17 00:01 37.4 65 18 116/72 (87) 94 Room Air 01/02/17 16:00 Room Air 01/02/17 15:15 36.8 54 22 110/71 (84) 97 Room Air Physical Exam General Appearance: WD/WN, no apparent distress, + thin, + pertinent finding ( frail but conversational) Eyes: normal inspection, PERRL, EOMI, sclerae normal ENT: normal ENT inspection, hearing grossly normal, pharynx normal Neck: supple, no adenopathy, thyroid normal, no JVD, no carotid bruits, trachea midline Respiratory/Chest: chest non-tender, lungs clear, normal breath sounds, no respiratory distress, no accessory muscle use, + decreased breath sounds Cardiovascular: regular rate, rhythm, no edema, no gallop, no JVD, no murmur Abdomen: normal bowel sounds, non tender, soft, no organomegaly, no pulsatile mass Extremities: normal range of motion, non-tender, normal inspection, no pedal edema, no calf tenderness, normal capillary refill, pelvis stable Neurologic/Psychiatric: coding specialist home health II-XII nml as tested, no motor/sensory deficits, alert, normal mood/affect, oriented x 3 Skin: normal color, warm/dry, no rash Lymphatic: no adenopathy Laboratory Results Last 24 Hours Test 01/02/17 22:00 01/03/17 06:21 01/03/17 08:30 Urine Color YELLOW Urine Appearance CLEAR Urine pH 6.0 Urine Specific [place] 1.016 Urine Protein 3+ Urine Glucose (UA) NEG Urine Ketones 1+ Urine Occult Blood 1+ Urine Nitrite NEG Urine Bilirubin NEG Urine Urobilinogen NEG Urine Leukocyte Esterase TRACE Urine WBC (Auto) 5-10 /hpf Urine RBC (Auto) 5-10 /hpf Urine Hyaline Casts (Auto) 1-5 /lpf Urine Epithelial Cells (Auto) >30 /lpf Urine Bacteria (Auto) NEG Urine Renal Epithelial Cells 5-10 /lpf Urine Random Creatinine 130.0 mg/dl Urine Random Total Protein 182.7 mg/dl Urine Protein/Creatinine Ratio 1.4 White Blood Count 7.53 K/uL Red Blood Count 3.60 M/uL Hemoglobin 10.9 g/dL Hematocrit 31.7 % Mean Corpuscular Volume 88.1 fL Mean Corpuscular Hemoglobin 30.3 pg Mean Corpuscular Hemoglobin Concent 34.4 g/dl RDW Standard Deviation 43.1 fL RDW Coefficient of Variation 13.3 % Platelet Count 172 K/uL Mean Platelet Volume 9.5 fL Sodium Level 149 mmol/L Potassium Level 3.3 mmol/L Chloride Level 114 mmol/L Carbon Dioxide Level 25 mmol/L Anion Gap 10.0 mmol/L Blood Urea Nitrogen 22 mg/dl Creatinine 2.50 mg/dl Est Creatinine Clear Calc Drug Dose 25.6 ml/min Estimated GFR () 24.3 Estimated GFR (Non- 20.9 BUN/Creatinine Ratio 8.8 Random Glucose 134 mg/dl Calcium Level 7.8 mg/dl Magnesium Level 2.2 mg/dl C-Reactive Protein 1.67 mg/dl Assessment and Plan 56-year-old female admitted on 01/01/2017 because of recurrent sigmoid diverticulitis of abdominal pain, nausea and vomiting which started on 12/28, now continue nausea, and has worsening acute kidney failure pt initially presented to the ER on 12/[address] abdomen and pelvis which was diagnostic of acute sigmoid diverticulitis. She was discharged home on oral ciprofloxacin, clindamycin and oral vancomycin. She then returned on 12/30 with increased severe nausea and vomiting, headache, and a temperature of 100.4. a past medical history of diverticulitis, history of C. difficile, and has follow-up with [facility] surgeon planning for bowel resection. Acute recurrent sigmoid diverticulitis: Possible stable Was on V clindamycin, and IV ciprofloxacin(the patient has not tolerated metronidazole in the past) - Has requested ID consult for the options of antibiotic when discharging, has changed to Invanz - Was on pain control with Toradol 30 mg every 6 hours, was changed to morphine because of increased creatinine level - Admission team had called and left a message with the nurse, Discussed with colorectal surgeon nurse and [employer] nurse that both physicians will postpone surgery, with attempt to reschedule her in 4 weeks. They will call the patient and reschedule within 1 week. - Zofran as needed, continue Pepcid, continue Protonix History of C. difficile: Currently has no bowel movement no diarrhea - By mouth vancomycin ordered at time of admit for ppx. Pt had negative c.diff in Jul. Sample currently uncollected. Continue oral Vanco because patient is sensitive to antibiotics Acute kidney failure, creatinine continue getting worse Etiology unknown, possible dehydration, however she is getting plenty IV fluid I believe it is adequate amount Some other reason causing acute kidney failure, Ultrasound was negative Abdominal CT studies was not remarkable for their kidney ureter bladder, Nephrology on the case Adjust IV fluid and replace lytes Avoid renal offensive medicine Patient reported follow-up with [facility] team, will have GI more improved for intractable nausea edition, not able to keep food down DVT prophylaxis: Ambulatory, teds, SCDs CODE STATUS: Full code Continued [facility] stay due to: multiple IV medications needed Discharge planning: home
[2017-01-03] MEDS ORDERED: DEXTROSE 50% 50 ML SYR IV PRN (12:15)
[2017-01-03] MEDS ORDERED: GLUCAGON FOR INJ 1 MG VIAL SQ PRN (12:15)
[2017-01-03] MEDS ORDERED: GLUCOSE 40% GEL 15 GM TUBE PO PRN (12:15)
[2017-01-03] MEDS ORDERED: GLUCOSE 10 TABS/TUBE PO PRN (12:15)
[2017-01-03] MEDS ORDERED: PANTOprazole INJ 40 MG in SYRINGE 0 ML IV ONE (12:30)
[2017-01-03] MEDS ORDERED: ERTAPENEM IV 0.5 GM in SODIUM CHLOR 0.9% AD-VAN 50ML 50 ML IV SCH (13:00)
[2017-01-03 14:26] VITALS: BP 120/74; PULSE 61; TEMP 37.2; O2SAT 96
--- NOTE | 2017-01-03 15:15 | Infectious Disease Progress Nt ---
Progress Note Date of Service Jan 03, 2017. Subjective Pt evaluation today including: conversation w/ patient, physical exam, chart review, lab review, review of studies, conversation w/ outside sales consultant, review of inpatient medication list Patient continues to have severe nausea today. Her creatinine continues to trend upward and was 2.50 today. Her C reactive protein was 1.67. White blood cell count was 7.53. Her urine culture is showing no growth. A renal ultrasound yesterday showed unremarkable sonographic assessment of the kidneys and bladder. I did discuss this patient with Dr. Crowell as well. She feels that the patient ultimately may be transferred if her creatinine does not begins to trend down. It is noted that the patient's creatinine started to rise while on Cipro and clindamycin. She was then transitioned to IV ertapenem. All Other Systems: Reviewed and Negative Medications Current Inpatient Medications Medications (Trade) Dose Ordered Sig/Jovan Route Start Time Stop Time Status Last Admin Dose Admin Ondansetron HCl (Zofran Inj) 4 mg Q6H PRN IV 12/31/16 00:15 01/30/17 00:14 01/01/17 14:35 4 MG Sucralfate (Carafate Tab) 1 gm ACHS PO 12/31/16 16:30 01/30/17 16:29 01/02/17 11:25 1 GM Morphine Sulfate (MoRPHine SULFATE INJ) 4 mg Q4 PRN IV 01/01/17 08:45 01/15/17 08:44 Vancomycin HCl (Vancomycin Oral Soln) 125 mg QID PO 01/01/17 12:00 01/15/17 11:59 01/03/17 08:08 125 MG Raspberry (Raspberry Syrup 5ml Cup) 5 ml QID PO 01/01/17 12:00 01/15/17 11:59 Heparin Sodium (Porcine) (Heparin Sq 5000 Unit/0.5ml) 5,000 unit Q12 SQ 01/02/17 21:00 01/30/17 07:59 Famotidine 20 mg/ Dextrose 102 ml @ 200 mls/hr Q12H IV 01/02/17 12:00 02/01/17 11:59 01/02/17 12:59 200 MLS/HR Potassium Chloride 40 meq/ Dextrose 1,020 ml @ 100 mls/hr [id number] IV 01/03/17 08:00 7/8/17 07:59 01/03/17 08:08 100 MLS/HR Ertapenem 500 mg/ Sodium Chloride 55 ml @ 110 mls/hr DAILY@1200 IV 01/03/17 12:00 01/11/17 11:59 01/03/17 11:49 110 MLS/HR Pantoprazole Sodium 40 mg/ Syringe 10 ml @ 5 mls/min DAILY@11 IV 01/04/17 11:00 02/03/17 10:59 Glucose (Glucose 40% Gel) 15-30 GRAMS 15 GRAMS... UD PRN PO 01/03/17 12:15 02/02/17 12:14 Glucose (Glucose Chew Tab) 4-8 Tablets 4 Tabl... UD PRN PO 01/03/17 12:15 02/02/17 12:14 Dextrose (Dextrose 50% 50ML Syringe) 25-50ML OF 50% DW IV FOR... UD PRN IV 01/03/17 12:15 02/02/17 12:14 Glucagon (Glucagon Inj) 1 mg UD PRN SQ 01/03/17 12:15 02/02/17 12:14 Objective Vital Signs Date Time Temp Pulse Resp B/P (MAP) Pulse Ox O2 Delivery O2 Flow Rate FiO2 01/03/17 14:26 37.2 61 18 120/74 (89) 96 Room Air 01/03/17 08:00 93 Room Air 01/03/17 07:16 37.3 66 16 109/67 (81) 93 Room Air 01/03/17 00:15 Room Air 01/03/17 00:01 37.4 65 18 116/72 (87) 94 Room Air 01/02/17 16:00 Room Air 01/02/17 15:15 36.8 54 22 110/71 (84) 97 Room Air Physical Exam General Appearance: WD/WN, + mild distress (Nauseated) Eyes: normal inspection, sclerae normal ENT: hearing grossly normal Neck: supple, trachea midline Respiratory/Chest: no respiratory distress, no accessory muscle use Cardiovascular: regular rate, rhythm Extremities: normal range of motion Neurologic/Psychiatric: alert, normal mood/affect Skin: normal color, warm/dry, no rash Laboratory Results Item Value Date Time Urine Culture - Preliminary Resulted 01/02/17 1130 Urine , Clean Catch NO GROWTH - LESS THAN 1,000 COLONIES/... Last 24 Hours Test 01/02/17 22:00 01/03/17 06:21 01/03/17 08:30 Urine Color YELLOW Urine Appearance CLEAR Urine pH 6.0 Urine Specific Orange 1.016 Urine Protein 3+ Urine Glucose (UA) NEG Urine Ketones 1+ Urine Occult Blood 1+ Urine Nitrite NEG Urine Bilirubin NEG Urine Urobilinogen NEG Urine Leukocyte Esterase TRACE Urine WBC (Auto) 5-10 /hpf Urine RBC (Auto) 5-10 /hpf Urine Hyaline Casts (Auto) 1-5 /lpf Urine Epithelial Cells (Auto) >30 /lpf Urine Bacteria (Auto) NEG Urine Renal Epithelial Cells 5-10 /lpf Urine Random Creatinine 130.0 mg/dl Urine Random Total Protein 182.7 mg/dl Urine Protein/Creatinine Ratio 1.4 White Blood Count 7.53 K/uL Red Blood Count 3.60 M/uL Hemoglobin 10.9 g/dL Hematocrit 31.7 % Mean Corpuscular Volume 88.1 fL Mean Corpuscular Hemoglobin 30.3 pg Mean Corpuscular Hemoglobin Concent 34.4 g/dl RDW Standard Deviation 43.1 fL RDW Coefficient of Variation 13.3 % Platelet Count 172 K/uL Mean Platelet Volume 9.5 fL Sodium Level 149 mmol/L Potassium Level 3.3 mmol/L Chloride Level 114 mmol/L Carbon Dioxide Level 25 mmol/L Anion Gap 10.0 mmol/L Blood Urea Nitrogen 22 mg/dl Creatinine 2.50 mg/dl Est Creatinine Clear Calc Drug Dose 25.6 ml/min Estimated GFR () 24.3 Estimated GFR (Non- 20.9 BUN/Creatinine Ratio 8.8 Random Glucose 134 mg/dl Calcium Level 7.8 mg/dl Magnesium Level 2.2 mg/dl C-Reactive Protein 1.67 mg/dl Assessment and Plan Patient with acute diverticulitis in the setting of multiple previous episodes of diverticulitis and history of recurrent C. Diff colitis and now with EFREN. The patient is currently on IV Ertapenem and continues to have nausea. Recommend continuing IV Ertapenem pending improvement of the patient's symptoms and tolerance of PO intake, but will decrease dose today to 500 mg once daily until kidney function improves. Feel that this patient likely should continue on IV ertapenem to complete the course for her diverticulitis. Pending further workup, the patient may be transferred to [facility], but she also could have a midline or PICC line placed to complete 10 days of therapy. S PROVIDER ADDENDUM: Patient reviewed with Ms. Thompson. Agree with above assessment.
[2017-01-03 23:17] VITALS: BP 111/71; PULSE 71; TEMP 37.5; O2SAT 94
--- NOTE | 2017-01-03 23:53 | GASTROENTEROLOGY PROGRESS NOTE ---
DATE: 01/03/2017 The patient was visited in her room today. Patient's and son were present. The patient continues to experience constant nausea with some vomiting. Her appetite is diminished compared to yesterday and she can barely handle half of a Jello. Her renal function has continued to deteriorate and creatinine is now up to 2.5. There was some protein noted on urinalysis. She is currently receiving a 24-hour urine collection. She has had stools today, which were loose, although nonbloody and abdominal pain is perhaps slightly worse today with some distention. VITAL SIGNS: She is afebrile 37.2, blood pressure 120/74, 96% on room air, respirations 18, heart rate 61. REVIEW OF SYSTEMS: Otherwise noncontributory, based on 14-point exam. LABORATORY STUDIES: Today again, show evidence of increasing creatinine. There was 3+ protein noted on urinalysis with trace leukocyte esterase, although many epithelial cells were noted. Hemoglobin is drifting slightly downward at 10.9, MCV 88. White count is normal at 7.53. Immunologic markers are pending for her protein workup. PHYSICAL EXAMINATION HEART: Normal S1, S2. LUNGS: Clear to auscultation. ABDOMEN: Soft, mildly distended without rebound or guarding. There is minimal tympany. EXTREMITIES: Without clubbing, cyanosis or edema. RECTAL: Deferred. The patient with more persistent nausea with some urge to vomit. This is in the setting of worsening renal function. She does not have a history of peptic ulcer disease. She has not tolerated any emetic drugs or acid suppressants. IMPRESSION AND PLAN: If acceptable with the primary team and nephrology, will tentatively plan for upper endoscopy tomorrow with Dr. Rodriguez to exclude mucosal disease, such as gastritis or peptic ulcer disease as well as any features of gastroparesis. Again, antibiotics correction for home is challenging, given her allergies to PENICILLIN, INTOLERANCE DUE TO SIDE EFFECTS WITH FLAGYL AND INTOLERANCE TO CIPRO. Consideration for her home ertapenem, which has been dose reduced, in progress. Tentative surgery for diverticulitis in [address] [facility] [address] Fonseca. We will continue to follow.
[2017-01-04 06:09] LABS: BUN/CREATININE RATIO 7.3 (10-20); CALCIUM 7.6 mg/dl (8.5-10.1); CREATININE 2.4 mg/dl (0.60-1.20); MAGNESIUM 2.1 mg/dl (1.8-2.4); POTASSIUM 3.6 mmol/L (3.5-5.1)
[2017-01-04] MEDS: POTASSIUM CHLORIDE INJ 40 MEQ in DEXTROSE 5% 1000ML 1,000 ML IV SCH ×2 (06:17→16:40)
[2017-01-04] MEDS: SUCRALFATE 1 GM TAB PO SCH ×4 (06:18→20:34)
[2017-01-04 07:18] VITALS: BP 123/79; PULSE 65; TEMP 37.4; O2SAT 94
[2017-01-04 08:00] VITALS: O2SAT 94
[2017-01-04] MEDS: HEPARIN SOD 5000 UNIT/0.5 ML CARP SQ SCH ×2 (08:34→20:32)
[2017-01-04] MEDS: RASPBERRY SYRUP 5 ML UDP PO SCH (08:34)
[2017-01-04] MEDS: VANCOMYCIN HCL 125 MG/2.5ML SOLN PO SCH (08:34)
[2017-01-04 08:35] VITALS: BP 123/79; PULSE 65; TEMP 37.4; O2SAT 94
--- NOTE | 2017-01-04 10:57 | Nephrology Progress Note ---
Nephrology Progress Note Date of Service Jan 04, 2017. Chief Complaint F/U for acute kidney injury and proteinuria. Wilfred Parker was seen and examined in her room this am. She continues to feel puffy and bloated and having dry heaving and nausea. UO >1 L. Creatinine seems to have peaked to 2.5 and staying stable today at 2.4. BP stable. Denies abdominal pain and diarrhea resolving. Review of Systems A complete review of systems was performed. Pertinent positives are noted above. All other systems are negative. Vital Signs Last 8 Hrs Date Time Temp Pulse Resp B/P (MAP) Pulse Ox O2 Delivery O2 Flow Rate FiO2 01/04/17 07:18 37.4 65 16 123/79 (94) 94 Room Air Last Recorded Weight Weight (Kilograms): 66.000 Physical Exam GENERAL: middle aged female, AAA x 3, pleasant, healthy-appearing, not in any distress. NECK: Supple, no JVD. RESPIRATORY: Normal breathing efforts, no accessory muscle use, clear to auscultation bilaterally, no wheezes or rales. CARDIOVASCULAR: S1, S2 normal, rate rhythm regular. EXTREMITY: No lower extremity edema NEURO: speech fluent. PSYCHIATRY: Normal mood and judgment Family History No pertinent family history Social History Smoking Status: Former smoker Drug Use: none Marital Status: Housing Status: lives with family Occupation: employed Laboratory Results Past 24 Hours 01/04/17 05:23 Test 01/03/17 10:00 01/04/17 05:23 Anion Gap 8.0 mmol/L (3-11) Est Creatinine Clear Calc Drug Dose 26.7 ml/min Estimated GFR () 25.5 Estimated GFR (Non- 22.0 BUN/Creatinine Ratio 7.3 (10-20) Calcium Level 7.6 mg/dl (8.5-10.1) Magnesium Level 2.1 mg/dl (1.8-2.4) Allergies Coded Allergies: Iodinated Diagnostic Agents (Verified Allergy, Unknown, ACHY,NAUSEA,WEAK, 12/29/16) Penicillins (Verified Allergy, Unknown, 12/29/16) Metronidazole (Verified Adverse Reaction, Intermediate, "PHYSICALLY UNCOMFORTABLE", 12/29/16) Medications Current Inpatient Medications Medications (Trade) Dose Ordered Sig/Jovan Route Start Time Stop Time Status Last Admin Dose Admin Ondansetron HCl (Zofran Inj) 4 mg Q6H PRN IV 12/31/16 00:15 01/30/17 00:14 01/01/17 14:35 4 MG Sucralfate (Carafate Tab) 1 gm ACHS PO 12/31/16 16:30 01/30/17 16:29 01/02/17 11:25 1 GM Morphine Sulfate (MoRPHine SULFATE INJ) 4 mg Q4 PRN IV 01/01/17 08:45 01/15/17 08:44 Vancomycin HCl (Vancomycin Oral Soln) 125 mg QID PO 01/01/17 12:00 01/15/17 11:59 01/03/17 08:08 125 MG Raspberry (Raspberry Syrup 5ml Cup) 5 ml QID PO 01/01/17 12:00 01/15/17 11:59 Heparin Sodium (Porcine) (Heparin Sq 5000 Unit/0.5ml) 5,000 unit Q12 SQ 01/02/17 21:00 01/30/17 07:59 Famotidine 20 mg/ Dextrose 102 ml @ 200 mls/hr Q12H IV 01/02/17 12:00 02/01/17 11:59 01/02/17 12:59 200 MLS/HR Potassium Chloride 40 meq/ Dextrose 1,020 ml @ 100 mls/hr [id number] IV 01/03/17 08:00 02/02/17 07:59 01/04/17 06:17 100 MLS/HR Ertapenem 500 mg/ Sodium Chloride 55 ml @ 110 mls/hr DAILY@1200 IV 01/03/17 12:00 01/11/17 11:59 01/03/17 11:49 110 MLS/HR Pantoprazole Sodium 40 mg/ Syringe 10 ml @ 5 mls/min DAILY@11 IV 01/04/17 11:00 02/03/17 10:59 Glucose (Glucose 40% Gel) 15-30 GRAMS 15 GRAMS... UD PRN PO 01/03/17 12:15 02/02/17 12:14 Glucose (Glucose Chew Tab) 4-8 Tablets 4 Tabl... UD PRN PO 01/03/17 12:15 02/02/17 12:14 Dextrose (Dextrose 50% 50ML Syringe) 25-50ML OF 50% DW IV FOR... UD PRN IV 01/03/17 12:15 02/02/17 12:14 Glucagon (Glucagon Inj) 1 mg UD PRN SQ 01/03/17 12:15 02/02/17 12:14 Impression (1) Acute kidney injury (2) Metabolic acidosis (3) Proteinuria (4) Hematuria (5) Diverticulitis Elena is a 56-year-old female with history of recurrent diverticulitis and C diff infection admitted to the hospital with acute diverticulitis. No history of chronic kidney disease, hypertension, diabetes or coronary artery disease. Baseline creatinine has been 0.8-0.9. No history of prior proteinuria. Had noncontrast CT scan done 3 days ago. Her blood pressure has been relatively soft. Developed acute kidney injury and creatinine worsening over last 3 days from 1.0 to 2.5 this morning. Urinalysis showing proteinuria and microscopic hematuria without any pyuria or bacteriuria. She has been afebrile, no skin rash or arthralgia, noticed decreased urine output since yesterday. Blood pressure has been stable Acute kidney injury most likely secondary to prerenal versus ATN with volume depletion and hypotension. Although she has been on antibiotics for last 3/ 4 days, unlikely acute interstitial nephritis considering no pyuria on urinalysis. Possibility for other intrinsic renal pathology such as vasculitis, acute GN remains specially with significant proteinuria. No postrenal obstruction on USG. Prior record review shows she has microscopic hematuria from before however no history of proteinuria. Recommendations --IV fluid can be discontinued after she has EGD --waiting on 24 h urine for better assessment of proteinuria and results of serological w/u considering continued worsening of renal function --would not consider empiric Rx with high dose steroid considering acute diverticulitis --monitor intake and output --avoid nephrotoxins medications, continue hemodynamics support, avoid hypotension --continue to monitor renal function daily -- cr seems to have peaked and now hopefully will start to improve, however, if renal function worsen again will consider transferring [place] [facility] [place] where she can have renal biopsy for definitive diagnosis and started on steroid if indicated Will follow
[2017-01-04] MEDS: PANTOprazole INJ 40 MG in SYRINGE 0 ML IV SCH ×2 (11:00→11:11)
[2017-01-04] MEDS: FAMOTIDINE IV INJ 20 MG in DEXTROSE 5% 100ML 100 ML IV SCH ×4 (11:24→11:26)
[2017-01-04] MEDS: ERTAPENEM IV 500 MG in SODIUM CHLORIDE 0.9% 50 ML IV SCH (11:26)
--- NOTE | 2017-01-04 14:51 | Progress Note ---
Subjective Date of Service: Jan 04, 2017. Subjective Pt evaluation today including: conversation w/ patient, conversation w/ family , physical exam, chart review, lab review, review of studies, conversation w/ instructional consultant, review of inpatient medication list Reported burning sensations in the epigastric area, associated with nausea edition, not able to keep food down, no diarrhea, has urine output Problem List Medical Problems: (1) Acute diverticulitis Status: Acute (2) Colitis Status: Acute (3) Diarrhea Status: Acute (4) Diverticulitis Status: Chronic (5) Leukocytosis Status: Acute (6) Lower abdominal pain Status: Acute Review of Systems Constitutional: No fever, No chills, No sweats, No weight loss, No weakness, No fatigue, No problem reported Eyes: No worsening of vision, No eye pain, No redness, No discharge, No diplopia ENT: No hearing loss, No unusual epistaxis, No nasal symptoms, No sore throat, No tinnitus, No dental problems, No trouble swallowing Respiratory: No cough, No sputum, No wheezing, No shortness of breath, No dyspnea on exertion, No dyspnea at rest, No hemoptysis Cardiac: No chest pain, No orthopnea, No PND, No edema, No claudication, No palpitations Abdomen: + see HPI, No pain, No nausea, No vomiting, No diarrhea, No constipation Musculoskeletal: No joint pain, No muscle pain, No swelling, No calf pain Female : No dysuria, No urinary frequency, No hematuria, No incontinence, No abnormal vaginal bleeding, No vaginal discharge Neurologic: No memory loss, No paralysis, No weakness, No numbness/tingling, No vertigo, No balance problems Psychiatric: No depression symptoms, No anhedonism, No anxiety, No insomnia, No substance abuse Heme: No abnormal bleeding/bruising, No clotting problems, No swollen lymph nodes, No night sweats Endo: No fatigue, No excessive thirst, No excessive urination Skin: No rash, No itch, No new/changing skin lesions, No color change, No bleeding Objective Vital Signs Date Time Temp Pulse Resp B/P (MAP) Pulse Ox O2 Delivery O2 Flow Rate FiO2 01/04/17 08:35 37.4 65 16 123/79 94 Room Air 0.5 01/04/17 08:00 94 Room Air 01/04/17 07:18 37.4 65 16 123/79 (94) 94 Room Air 01/04/17 00:00 Room Air 01/03/17 23:17 37.5 71 20 111/71 (84) 94 Room Air 01/03/17 15:40 Room Air Physical Exam General Appearance: WD/WN, no apparent distress, + thin Eyes: normal inspection, PERRL, EOMI, sclerae normal ENT: normal ENT inspection, hearing grossly normal, pharynx normal Neck: supple, no adenopathy, thyroid normal, no JVD, no carotid bruits, trachea midline Respiratory/Chest: chest non-tender, lungs clear, normal breath sounds, no respiratory distress, no accessory muscle use Cardiovascular: regular rate, rhythm, no edema, no gallop, no JVD, no murmur Abdomen: normal bowel sounds, non tender, soft, no organomegaly, no pulsatile mass Extremities: normal range of motion, non-tender, normal inspection, no pedal edema, no calf tenderness, normal capillary refill, pelvis stable 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, no motor/sensory deficits, alert, normal mood/affect, oriented x 3 Skin: normal color, warm/dry, no rash Lymphatic: no adenopathy Laboratory Results Last 24 Hours Test 01/04/17 05:23 01/04/17 11:39 01/04/17 11:40 Sodium Level 145 mmol/L Potassium Level 3.6 mmol/L Chloride Level 112 mmol/L Carbon Dioxide Level 25 mmol/L Anion Gap 8.0 mmol/L Blood Urea Nitrogen 18 mg/dl Creatinine 2.40 mg/dl Est Creatinine Clear Calc Drug Dose 26.7 ml/min Estimated GFR () 25.5 Estimated GFR (Non- 22.0 BUN/Creatinine Ratio 7.3 Random Glucose 116 mg/dl Calcium Level 7.6 mg/dl Magnesium Level 2.1 mg/dl Assessment and Plan 56-year-old female admitted on 01/01/2017 because of recurrent sigmoid diverticulitis of abdominal pain, nausea and vomiting which started on 12/28/2016 , now continue nausea, and has worsening acute kidney failure pt initially presented to the ER on 12/[address] abdomen and pelvis which was diagnostic of acute sigmoid diverticulitis. She was discharged home on oral ciprofloxacin, clindamycin and oral vancomycin. She then returned on 12/30 with increased severe nausea and vomiting, headache, and a temperature of 100.4. a past medical history of diverticulitis, history of C. difficile, and has follow-up with [place] surgeon planning for bowel resection. Acute recurrent sigmoid diverticulitis: stable Was on V clindamycin, and IV ciprofloxacin(the patient has not tolerated metronidazole in the past) - Has requested ID consult for the options of antibiotic when discharging, has changed to Invanz on 01/01/2017, 4 days/10 days - Was on pain control with Toradol 30 mg every 6 hours, was changed to morphine because of increased creatinine level - Admission team had called and left a message with the nurse, Discussed with colorectal surgeon nurse and [employer] nurse that both physicians will postpone surgery, with attempt to reschedule her in 4 weeks. They will call the patient and reschedule within 1 week. - Zofran as needed, continue Pepcid, continue Protonix Significant epigastric pain and nausea edition burning sensations: Differential diagnosis include gastritis aspirate acute disease, EGD is planned to do today History of C. difficile: Currently has no bowel movement no diarrhea - By mouth vancomycin ordered at time of admit for ppx. Continue oral Vanco because patient is sensitive to antibiotics Acute kidney failure, creatinine continue getting worse, seemed to peak Etiology unknown, possible dehydration, however she is getting plenty IV fluid I believe it is adequate amount Ultrasound was negative Abdominal CT studies was not remarkable for their kidney ureter bladder, Nephrology on the case Avoid renal offensive medicine [place] [facility] [place] condition getting worse because need biopsies Patient reported follow-up with [place] GI team, will have GI more improved for intractable nausea edition, not able to keep food down Follow-up GI input and EGD results DVT prophylaxis: Ambulatory, teds, SCDs CODE STATUS: Full code Continued [facility] stay due to: multiple IV medications needed Discharge planning: home
--- NOTE | 2017-01-04 14:57 | Endo History and Physical ---
History & Physical Date of Service: Jan 04, 2017. Chief Complaint: Vomiting Referring Physician: Dr Fonseca History of Present Illness For EGD Past Surgical History Hx Cardiac Surgery: No Hx Abdominal Surgery: Yes (appendectomy, endometriosis, ovary removal, ) Hx Post-Op Nausea and Vomiting: No Hx Cancer Surgery: No Hx Thoracic Surgery: No Hx Orthopedic: Yes (5 shoulder surgeries) Hx Urinary Tract Surgery: No Social History Smoking Status: Former Smoker Hx Substance Use: No Hx Alcohol Use: No Allergies Coded Allergies: Iodinated Diagnostic Agents (Verified Allergy, Unknown, ACHY,NAUSEA,WEAK, 12/29/16) Penicillins (Verified Allergy, Unknown, 12/29/16) Metronidazole (Verified Adverse Reaction, Intermediate, "PHYSICALLY UNCOMFORTABLE", 12/29/16) Current Medications Reported Home Medications Medications Dose Route/Sig Max Daily Dose Days Date Category Vancomycin HCl 125 Mg/2.5 Ml Susp 125 Mg PO QID 10 12/29/16 Rx Cleocin (Clindamycin Hcl) 300 Mg Cap 300 Mg PO TID 10 12/29/16 Rx Cipro (Ciprofloxacin Hcl) 500 Mg Tab 500 Mg PO BID 12/29/16 Rx Vital Signs Weight (Kilograms): 66.000 Height (Feet): 5 Height (Inches): 8.00 Date Time Temp Pulse Resp B/P (MAP) Pulse Ox O2 Delivery O2 Flow Rate FiO2 01/04/17 14:49 37.1 65 18 138/77 (97) 96 Room Air 01/04/17 08:35 37.4 65 16 123/79 94 Room Air 0.5 01/04/17 08:00 94 Room Air 01/04/17 07:18 37.4 65 16 123/79 (94) 94 Room Air 01/04/17 00:00 Room Air 01/03/17 23:17 37.5 71 20 111/71 (84) 94 Room Air 01/03/17 15:40 Room Air Physical Exam General Appearance: WD/WN Respiratory/Chest: Respiratory effort: no dyspnea Cardiovascular: Heart Auscultation: RRR Abdomen: Inspection & Palpation: LLQ tenderness Assessment and Plan Vomiting for EGD
[2017-01-04] MEDS ORDERED: LIDOCAINE HCL 2% 2 ML VIAL (20MG/ML) ONE (15:03)
[2017-01-04] MEDS ORDERED: PROPOFOL IV EMULSION 10 MG/ML 20 ML VIAL IV ONE (15:03)
--- NOTE | 2017-01-04 15:15 | Discharge Instructions ---
Endoscopy Patient Instructions Date / Procedure(s) Performed Jan 04, 2017. EGD Allergy Information Coded Allergies: Iodinated Diagnostic Agents (Verified Allergy, Unknown, ACHY,NAUSEA,WEAK, 12/29/16) Penicillins (Verified Allergy, Unknown, 12/29/16) Metronidazole (Verified Adverse Reaction, Intermediate, "PHYSICALLY UNCOMFORTABLE", 12/29/16) Discharge Date / Findings Jan 04, 2017. Gastric erythema Medication Instructions Restart Stopped Medication(s): resume meds Current Inpatient Medications Medications (Trade) Dose Ordered Sig/Jovan Route Start Time Stop Time Status Last Admin Dose Admin Ondansetron HCl (Zofran Inj) 4 mg Q6H PRN IV 12/31/16 00:15 01/30/17 00:14 01/01/17 14:35 4 MG Sucralfate (Carafate Tab) 1 gm ACHS PO 12/31/16 16:30 01/30/17 16:29 01/02/17 11:25 1 GM Morphine Sulfate (MoRPHine SULFATE INJ) 4 mg Q4 PRN IV 01/01/17 08:45 01/15/17 08:44 Heparin Sodium (Porcine) (Heparin Sq 5000 Unit/0.5ml) 5,000 unit Q12 SQ 01/02/17 21:00 01/30/17 07:59 Famotidine 20 mg/ Dextrose 102 ml @ 200 mls/hr Q12H IV 01/02/17 12:00 02/01/17 11:59 01/02/17 12:59 200 MLS/HR Potassium Chloride 40 meq/ Dextrose 1,020 ml @ 100 mls/hr [id number] IV 01/03/17 08:00 02/02/17 07:59 01/04/17 06:17 100 MLS/HR Ertapenem 500 mg/ Sodium Chloride 55 ml @ 110 mls/hr DAILY@1200 IV 01/03/17 12:00 01/11/17 11:59 01/04/17 11:26 110 MLS/HR Pantoprazole Sodium 40 mg/ Syringe 10 ml @ 5 mls/min DAILY@11 IV 01/04/17 11:00 02/03/17 10:59 Glucose (Glucose 40% Gel) 15-30 GRAMS 15 GRAMS... UD PRN PO 01/03/17 12:15 02/02/17 12:14 Glucose (Glucose Chew Tab) 4-8 Tablets 4 Tabl... UD PRN PO 01/03/17 12:15 02/02/17 12:14 Dextrose (Dextrose 50% 50ML Syringe) 25-50ML OF 50% DW IV FOR... UD PRN IV 01/03/17 12:15 02/02/17 12:14 Glucagon (Glucagon Inj) 1 mg UD PRN SQ 01/03/17 12:15 02/02/17 12:14 Raspberry (Raspberry Syrup 5ml Cup) 5 ml DAILY PO 01/05/17 08:00 01/15/17 11:59 Vancomycin HCl (Vancomycin Oral Soln) 125 mg DAILY PO 01/05/17 08:00 01/15/17 11:59 Provider Instructions Activity Restrictions - No exercising or heavy lifting for 24 hours. - Do not drink alcohol the day of the procedure. - Do not drive a car or operate machinery until the day after the procedure. - Do not make any important decisions or sign important papers in 24 hours after the procedure. Following Day: - Return to full activity which may include returning to work/school. Diet Start your diet with liquids and light foods (jello, soup, juice, toast). Then eat your usual diet if not nauseated. Treatment For Common After Affects For mild abdominal pain, bloating, or excessive gas: - Rest - Eat lightly - Lie on right side Follow-Up Information Follow-up with as scheduled Anesthesia Information What You Should Know You have had a procedure that required some medicine to reduce anxiety and discomfort. This treatment is called moderate sedation. After receiving the treatment, you may be sleepy, but you will be able to breathe on your own. The effects of the treatment may last for several hours. Follow these instructions along with Activity/Diet recommendations noted above: * Do NOT do anything where dizziness or clumsiness would be dangerous. * Rest quietly at home today, then you can be up and about tomorrow. * Have a responsible person stay with you the rest of today. * You may have had an I.V. today. If so, you may take the dressing off later today. Recommendations Call your doctor if: * Trouble breathing * Continuous vomiting for more than 24 hours * Temperature above 101 degrees * Severe abdominal pain or bloating * Pain not relieved by pain medicine ordered * There is increased drainage or redness from any incision * A large amount of rectal bleeding greater than 2-3 tablespoons. (If you had a polyp/s removed or have hemorrhoids, a small amount of blood - from the rectum is to be expected.) * You have any unanswered questions or concerns. IN THE EVENT OF A SERIOUS EMERGENCY, GO TO THE NEAREST EMERGENCY ROOM Your discharge instructions were prepared by provider Sarkis Rodriguez. Patient Instructions Signature Page Elena Olmstead Patient (or Guardian) Signature/Date: I have read and understand the instructions given to me by my caregivers. Caregiver/RN/Doctor Signature/Date: The above-named patient and/or guardian has received patient instructions on this date. + Original Patient Signature Page (only) stays with chart. Please make copy for patient.
[2017-01-04 15:19] LABS: PATIENT HEIGHT 172.7 cm
--- NOTE | 2017-01-04 15:22 | GI REPORT ---
Procedure Date: 01/04/2017 2:59 PM Procedure: Upper GI endoscopy Indications: Vomiting Medicines: Propofol total dose 100 mg IV, Lidocaine 60 mg IV Complications: No immediate complications. Estimated Blood Loss: Estimated blood loss: none. Procedure: Pre-Anesthesia Assessment: - Prior to the procedure, a History and Physical was performed, and patient medications, allergies and sensitivities were reviewed. The patient's tolerance of previous anesthesia was reviewed. - The risks and benefits of the procedure and the sedation options and risks were discussed with the patient. All questions were answered and informed consent was obtained. After obtaining informed consent, the endoscope was passed under direct vision. Throughout the procedure, the patient's blood pressure, pulse, and oxygen saturations were monitored continuously. The On-site loaner was introduced through the mouth, and advanced to the second part of duodenum. The upper GI endoscopy was accomplished without difficulty. The patient tolerated the procedure well. Findings: The examined esophagus was normal. Patchy mildly erythematous mucosa without bleeding was found in the gastric body. The examined duodenum was normal. Impression: - Normal esophagus. - Erythematous mucosa in the gastric body. - Normal examined duodenum. - No specimens collected. Recommendation: - Return patient to hospital bedoya for ongoing care. Sarkis Rodriguez M.D. Sarkis Rodriguez MD 01/04/2017 3:22:10 PM This report has been signed electronically. Note Initiated On: 01/04/2017 2:59 PM I attest to the content of the Intraoperative Record and orders documented therein, exceptions below
[2017-01-04] MEDS ORDERED: ONDANSETRON INJ 2 MG/ML 2 ML VIAL ONE (15:40)
[2017-01-04 15:43] LABS: URINE TOTAL PROTEIN 52.9 mg/dl (0-11.9)
[2017-01-04] MEDS: ONDANSETRON INJ 2 MG/ML 2 ML VIAL IV PRN (15:44)
[2017-01-04 16:09] VITALS: BP 137/80; PULSE 58; TEMP 36.6; O2SAT 97
--- NOTE | 2017-01-04 16:43 | Infectious Disease Progress Nt ---
Progress Note Date of Service Jan 04, 2017. Subjective Pt evaluation today including: conversation w/ patient, physical exam, chart review, lab review, review of studies, review of inpatient medication list Patient continues to have severe nausea today, and she is complaining of increased bloating. Her urine culture is showing no growth. Her creatinine today was 2.40. She continues on IV ertapenem. She continues to have dry heaving throughout the day. She states that her abdominal pain has improved. She is anticipating endoscopy this afternoon. All Other Systems: Reviewed and Negative Medications Current Inpatient Medications Medications (Trade) Dose Ordered Sig/Jovan Route Start Time Stop Time Status Last Admin Dose Admin Ondansetron HCl (Zofran Inj) 4 mg Q6H PRN IV 12/31/16 00:15 01/30/17 00:14 01/04/17 15:44 4 MG Sucralfate (Carafate Tab) 1 gm ACHS PO 12/31/16 16:30 01/30/17 16:29 01/02/17 11:25 1 GM Morphine Sulfate (MoRPHine SULFATE INJ) 4 mg Q4 PRN IV 01/01/17 08:45 01/15/17 08:44 Heparin Sodium (Porcine) (Heparin Sq 5000 Unit/0.5ml) 5,000 unit Q12 SQ 01/02/17 21:00 01/30/17 07:59 Famotidine 20 mg/ Dextrose 102 ml @ 200 mls/hr Q12H IV 01/02/17 12:00 02/01/17 11:59 01/02/17 12:59 200 MLS/HR Potassium Chloride 40 meq/ Dextrose 1,020 ml @ 100 mls/hr [id number] IV 01/03/17 08:00 02/02/17 07:59 01/04/17 06:17 100 MLS/HR Ertapenem 500 mg/ Sodium Chloride 55 ml @ 110 mls/hr DAILY@1200 IV 01/03/17 12:00 01/11/17 11:59 01/04/17 11:26 110 MLS/HR Pantoprazole Sodium 40 mg/ Syringe 10 ml @ 5 mls/min DAILY@11 IV 01/04/17 11:00 02/03/17 10:59 Glucose (Glucose 40% Gel) 15-30 GRAMS 15 GRAMS... UD PRN PO 01/03/17 12:15 02/02/17 12:14 Glucose (Glucose Chew Tab) 4-8 Tablets 4 Tabl... UD PRN PO 01/03/17 12:15 02/02/17 12:14 Dextrose (Dextrose 50% 50ML Syringe) 25-50ML OF 50% DW IV FOR... UD PRN IV 01/03/17 12:15 02/02/17 12:14 Glucagon (Glucagon Inj) 1 mg UD PRN SQ 01/03/17 12:15 02/02/17 12:14 Raspberry (Raspberry Syrup 5ml Cup) 5 ml DAILY PO 01/05/17 08:00 01/15/17 11:59 Vancomycin HCl (Vancomycin Oral Soln) 125 mg DAILY PO 01/05/17 08:00 01/15/17 11:59 Objective Vital Signs Date Time Temp Pulse Resp B/P (MAP) Pulse Ox O2 Delivery O2 Flow Rate FiO2 01/04/17 16:09 36.6 58 20 137/80 (99) 97 Room Air 01/04/17 15:47 58 18 134/74 (94) 95 Room Air 01/04/17 15:32 60 16 137/80 (99) 95 Room Air 01/04/17 15:17 61 16 126/72 (90) 99 Mask 10 01/04/17 14:49 37.1 65 18 138/77 (97) 96 Room Air 01/04/17 08:35 37.4 65 16 123/79 94 Room Air 0.5 01/04/17 08:00 94 Room Air 01/04/17 07:18 37.4 65 16 123/79 (94) 94 Room Air 01/04/17 00:00 Room Air 01/03/17 23:17 37.5 71 20 111/71 (84) 94 Room Air Physical Exam General Appearance: WD/WN, no apparent distress Eyes: normal inspection, sclerae normal ENT: hearing grossly normal Neck: supple, trachea midline Respiratory/Chest: no respiratory distress, no accessory muscle use Cardiovascular: regular rate, rhythm Abdomen: + distended Extremities: normal range of motion Neurologic/Psychiatric: alert, normal mood/affect Skin: normal color, warm/dry, no rash Laboratory Results Item Value Date Time Urine Culture - Final Complete 01/02/17 1130 Urine , Clean Catch NO GROWTH - LESS THAN 1,000 COLONIES/ML C.difficile Toxin B Gene (PCR) - Final Complete 01/01/17 1748 Stool No C. difficile toxin B gene detected Last 24 Hours Test 01/04/17 05:23 01/04/17 11:30 Sodium Level 145 mmol/L Potassium Level 3.6 mmol/L Chloride Level 112 mmol/L Carbon Dioxide Level 25 mmol/L Anion Gap 8.0 mmol/L Blood Urea Nitrogen 18 mg/dl Creatinine 2.40 mg/dl Est Creatinine Clear Calc Drug Dose 26.7 ml/min Estimated GFR () 25.5 Estimated GFR (Non- 22.0 BUN/Creatinine Ratio 7.3 Random Glucose 116 mg/dl Calcium Level 7.6 mg/dl Magnesium Level 2.1 mg/dl Urine Creatinine 74.0 mg/dl Urine Total Protein 52.9 mg/dl Assessment and Plan Patient with acute diverticulitis in the setting of multiple previous episodes of diverticulitis and history of recurrent C. Diff colitis and now with EFREN. The patient is currently on IV Ertapenem and continues to have nausea. Recommend continuing IV Ertapenem pending improvement of the patient's symptoms and tolerance of PO intake. Feel that this patient likely should continue on IV ertapenem to complete the course for her diverticulitis, likely will complete at least 10 days of therapy pending improvement and further workup. PROVIDER ADDENDUM: Pt. reviewed with Ms. Thompson. agree with above assessment.
--- NOTE | 2017-01-04 17:59 | Anesthesiology Progress Note ---
Anesthesia Post Op Note Date & Time Jan 04, 2017 at 18:00 Vital Signs Pain Intensity: 0 Vital Signs Past 12 Hours Date Time Temp Pulse Resp B/P (MAP) Pulse Ox O2 Delivery O2 Flow Rate FiO2 01/04/17 16:09 36.6 58 20 137/80 (99) 97 Room Air 01/04/17 15:47 58 18 134/74 (94) 95 Room Air 01/04/17 15:32 60 16 137/80 (99) 95 Room Air 01/04/17 15:17 61 16 126/72 (90) 99 Mask 10 01/04/17 14:49 37.1 65 18 138/77 (97) 96 Room Air 01/04/17 08:35 37.4 65 16 123/79 94 Room Air 0.5 01/04/17 08:00 94 Room Air 01/04/17 07:18 37.4 65 16 123/79 (94) 94 Room Air Notes Mental Status: alert / awake / arousable, participated in evaluation Pt Amnestic to Procedure: Yes Nausea / Vomiting: adequately controlled Pain: adequately controlled Airway Patency, RR, SpO2: stable & adequate BP & HR: stable & adequate Hydration State: stable & adequate Anesthetic Complications: no major complications apparent
[2017-01-04 18:35] LABS: URINE TOTAL PROTEIN CALC 767.1 mg/24 hr (0-149.1)
[2017-01-04 19:37] LABS: CREATININE 2.4 mg/dl (0.6-1.2)
[2017-01-04 23:24] VITALS: BP 119/76; PULSE 71; TEMP 37.4; O2SAT 96
[2017-01-05] MEDS: POTASSIUM CHLORIDE INJ 40 MEQ in DEXTROSE 5% 1000ML 1,000 ML IV SCH ×3 (00:34→20:50)
[2017-01-05 06:09] LABS: HEMATOCRIT 31.8 % (37-47); MEAN CELL VOLUME 89.3 fL (80-100); MEAN CORPUSCULAR HEMOGLOBIN 29.5 pg (25-34); MEAN PLATELET VOLUME 9.6 fL (7.4-10.4); PLATELET COUNT 205 K/uL (130-400); RED BLOOD COUNT 3.56 M/uL (4.2-5.4); WHITE BLOOD COUNT 6.41 K/uL (4.8-10.8)
[2017-01-05] MEDS: SUCRALFATE 1 GM TAB PO SCH ×4 (06:20→20:49)
[2017-01-05 06:38] LABS: BUN/CREATININE RATIO 7.5 (10-20); CALCIUM 7.7 mg/dl (8.5-10.1); CREATININE 1.8 mg/dl (0.60-1.20)
[2017-01-05 07:37] VITALS: BP 106/67; PULSE 89; TEMP 36.7; O2SAT 96
[2017-01-05] MEDS: RASPBERRY SYRUP 5 ML UDP PO SCH (07:47)
[2017-01-05] MEDS: HEPARIN SOD 5000 UNIT/0.5 ML CARP SQ SCH ×2 (07:47→20:47)
[2017-01-05] MEDS: VANCOMYCIN HCL 125 MG/2.5ML SOLN PO SCH (07:47)
--- NOTE | 2017-01-05 09:48 | Nephrology Progress Note ---
Nephrology Progress Note Date of Service Jan 05, 2017. Chief Complaint No acute events overnight. Elena was seen and evaluated in her hospital room this morning. Overall, she feels well. She describes persistent abdominal discomfort. She continues to have nausea. She has not been able to tolerate oral intake. Her appetite is poor. She denies fevers or chills. She does not have significant abdominal pain. She denies shortness of breath. She is voiding urine without difficulty. Review of Systems A complete review of systems was performed. Pertinent positives are noted above. All other systems are negative. Vital Signs Last 8 Hrs Date Time Temp Pulse Resp B/P (MAP) Pulse Ox O2 Delivery O2 Flow Rate FiO2 01/05/17 07:37 36.7 89 18 106/67 (80) 96 Room Air Last Recorded Weight Weight (Kilograms): 66.000 Physical Exam General Appearance: WD/WN, no apparent distress Head: normocephalic, atraumatic Eyes: normal inspection, sclerae normal ENT: normal ENT inspection, pharynx normal Neck: supple, no JVD Respiratory/Chest: lungs clear, normal breath sounds, no accessory muscle use Cardiovascular: regular rate, rhythm, no gallop Abdomen/GI: non tender, + abnormal bowel sounds, + distended Extremities/Musculoskelatal: normal inspection, + pertinent finding (trace generalized edema) Neurologic/Psych: alert, normal mood/affect, oriented x 3 Family History No pertinent family history Social History Smoking Status: Former smoker Drug Use: none Marital Status: Housing Status: lives with family Occupation: employed Laboratory Results Past 24 Hours 01/05/17 05:35 01/05/17 05:25 Test 01/04/17 11:30 01/05/17 05:25 01/05/17 05:35 Urine Collection Time 24 HOURS Urine Total Volume 1450 mL Urine Creatinine 74.0 mg/dl Urine Creatinine 24 Hour 1.1 gm/24 HR (0.6-2.5) Urine Creatinine Clearance 24 Hour 30.1 ml/min (88-128) Urine Total Protein 24 Hour 767.1 mg/24 hr (0-149.1) Urine Total Protein 52.9 mg/dl (0-11.9) Anion Gap 7.0 mmol/L (3-11) Est Creatinine Clear Calc Drug Dose 35.6 ml/min Estimated GFR () 36.1 Estimated GFR (Non- 31.1 BUN/Creatinine Ratio 7.5 (10-20) Calcium Level 7.7 mg/dl (8.5-10.1) Red Blood Count 3.56 M/uL (4.2-5.4) Mean Corpuscular Volume 89.3 fL (80-100) Mean Corpuscular Hemoglobin 29.5 pg (25-34) Mean Corpuscular Hemoglobin Concent 33.0 g/dl (32-36) RDW Standard Deviation 43.1 fL (36.4-46.3) RDW Coefficient of Variation 13.2 % (11.5-14.5) Mean Platelet Volume 9.6 fL (7.4-10.4) Allergies Coded Allergies: Iodinated Diagnostic Agents (Verified Allergy, Unknown, ACHY,NAUSEA,WEAK, 12/29/16) Penicillins (Verified Allergy, Unknown, 12/29/16) Metronidazole (Verified Adverse Reaction, Intermediate, "PHYSICALLY UNCOMFORTABLE", 12/29/16) Medications Current Inpatient Medications Medications (Trade) Dose Ordered Sig/Jovan Route Start Time Stop Time Status Last Admin Dose Admin Ondansetron HCl (Zofran Inj) 4 mg Q6H PRN IV 12/31/16 00:15 01/30/17 00:14 01/04/17 15:44 4 MG Sucralfate (Carafate Tab) 1 gm ACHS PO 12/31/16 16:30 01/30/17 16:29 01/05/17 06:20 1 GM Morphine Sulfate (MoRPHine SULFATE INJ) 4 mg Q4 PRN IV 01/01/17 08:45 01/15/17 08:44 Heparin Sodium (Porcine) (Heparin Sq 5000 Unit/0.5ml) 5,000 unit Q12 SQ 01/02/17 21:00 01/30/17 07:59 Famotidine 20 mg/ Dextrose 102 ml @ 200 mls/hr Q12H IV 01/02/17 12:00 02/01/17 11:59 01/02/17 12:59 200 MLS/HR Potassium Chloride 40 meq/ Dextrose 1,020 ml @ 100 mls/hr [id number] IV 01/03/17 08:00 02/02/17 07:59 01/05/17 00:34 100 MLS/HR Ertapenem 500 mg/ Sodium Chloride 55 ml @ 110 mls/hr DAILY@1200 IV 01/03/17 12:00 01/11/17 11:59 01/04/17 11:26 110 MLS/HR Pantoprazole Sodium 40 mg/ Syringe 10 ml @ 5 mls/min DAILY@11 IV 01/04/17 11:00 02/03/17 10:59 Glucose (Glucose 40% Gel) 15-30 GRAMS 15 GRAMS... UD PRN PO 01/03/17 12:15 02/02/17 12:14 Glucose (Glucose Chew Tab) 4-8 Tablets 4 Tabl... UD PRN PO 01/03/17 12:15 02/02/17 12:14 Dextrose (Dextrose 50% 50ML Syringe) 25-50ML OF 50% DW IV FOR... UD PRN IV 01/03/17 12:15 02/02/17 12:14 Glucagon (Glucagon Inj) 1 mg UD PRN SQ 01/03/17 12:15 02/02/17 12:14 Raspberry (Raspberry Syrup 5ml Cup) 5 ml DAILY PO 01/05/17 08:00 01/15/17 11:59 Vancomycin HCl (Vancomycin Oral Soln) 125 mg DAILY PO 01/05/17 08:00 01/15/17 11:59 01/05/17 07:47 125 MG Impression (1) Acute kidney injury (2) Metabolic acidosis (3) Proteinuria (4) Hematuria (5) Diverticulitis Elena is a 56-year-old female with history of recurrent diverticulitis and C diff infection admitted to the hospital with acute diverticulitis. Baseline creatinine was 0.9 mg/dL. No history of prior proteinuria. Elena developed acute kidney injury consistent with hemodynamically mediated ATN. Creatinine peaked at 2.5 mg/dL on 01/03/17. She is now showing evidence of renal recovery. Urinalysis showing proteinuria and microscopic hematuria without any pyuria or bacteriuria. She has been afebrile, no skin rash or arthralgia. She is non oliguric. Blood pressure has been stable but low. There is a documented history of microscopic hematuria but not proteinuria. 24 hour urine documented 750 mg/d during EFREN. Recommendations -- Document I/O's -- Repeat metabolic profile tomorrow AM -- Maintain even fluid balance - stop IVF once oral intake appropriate -- Medications currently appropriately dosed for renal function
[2017-01-05] MEDS: FAMOTIDINE IV INJ 20 MG in DEXTROSE 5% 100ML 100 ML IV SCH ×2 (12:00→16:36)
[2017-01-05] MEDS: PANTOprazole INJ 40 MG in SYRINGE 0 ML IV SCH (12:09)
[2017-01-05] MEDS: ERTAPENEM IV 500 MG in SODIUM CHLORIDE 0.9% 50 ML IV SCH (12:10)
[2017-01-05] MEDS ORDERED: NURSING VERBAL MED ORDER ONE (13:00)
[2017-01-05] MEDS ORDERED: ACETAMINOPHEN 1000 MG/100 ML IV IV PRN (13:15)
[2017-01-05 15:22] VITALS: BP 116/74; PULSE 61; TEMP 37.1; O2SAT 96
--- NOTE | 2017-01-05 16:37 | Progress Note ---
Subjective Date of Service: Jan 05, 2017. Subjective Pt evaluation today including: conversation w/ patient, conversation w/ family Reported a lot of normalization and still vomiting EGD was done yesterday, was not remarkable Has been drinking some clear to liquid, she was looking for some diet Problem List Medical Problems: (1) Acute diverticulitis Status: Acute (2) Colitis Status: Acute (3) Diarrhea Status: Acute (4) Diverticulitis Status: Chronic (5) Leukocytosis Status: Acute (6) Lower abdominal pain Status: Acute Review of Systems Constitutional: No fever, No chills, No sweats, No weight loss, No weakness, No fatigue, No problem reported Eyes: No worsening of vision, No eye pain, No redness, No discharge, No diplopia ENT: No hearing loss, No unusual epistaxis, No nasal symptoms, No sore throat, No tinnitus, No dental problems, No trouble swallowing Respiratory: No cough, No sputum, No wheezing, No shortness of breath, No dyspnea on exertion, No dyspnea at rest, No hemoptysis Cardiac: No chest pain, No orthopnea, No PND, No edema, No claudication, No palpitations Abdomen: + nausea, + vomiting, No pain, No diarrhea, No constipation Musculoskeletal: No joint pain, No muscle pain, No swelling, No calf pain Female : No dysuria, No urinary frequency, No hematuria, No incontinence, No abnormal vaginal bleeding, No vaginal discharge Neurologic: No memory loss, No paralysis, No weakness, No numbness/tingling, No vertigo, No balance problems Psychiatric: No depression symptoms, No anhedonism, No anxiety, No insomnia, No substance abuse Heme: No abnormal bleeding/bruising, No clotting problems, No swollen lymph nodes, No night sweats Endo: No fatigue, No excessive thirst, No excessive urination Skin: No rash, No itch, No new/changing skin lesions, No color change, No bleeding Objective Vital Signs Date Time Temp Pulse Resp B/P (MAP) Pulse Ox O2 Delivery O2 Flow Rate FiO2 01/05/17 16:00 Room Air 01/05/17 15:22 37.1 61 18 116/74 (88) 96 Room Air 01/05/17 08:00 Room Air 01/05/17 07:37 36.7 89 18 106/67 (80) 96 Room Air 01/05/17 00:00 Room Air 01/04/17 23:24 37.4 71 20 119/76 (90) 96 Room Air Physical Exam General Appearance: WD/WN, + thin Eyes: normal inspection, PERRL, EOMI, sclerae normal ENT: normal ENT inspection, hearing grossly normal, pharynx normal Neck: supple, no adenopathy, thyroid normal, no JVD, no carotid bruits, trachea midline Respiratory/Chest: chest non-tender, lungs clear, no respiratory distress, no accessory muscle use, + decreased breath sounds Cardiovascular: regular rate, rhythm, no edema, no gallop, no JVD, no murmur Abdomen: normal bowel sounds, non tender, soft, no organomegaly, no pulsatile mass Extremities: normal range of motion, non-tender, normal inspection, no pedal edema, no calf tenderness, normal capillary refill, pelvis stable Neurologic/Psychiatric: card grinder helper II-XII nml as tested, no motor/sensory deficits, alert, normal mood/affect, oriented x 3 Skin: normal color, warm/dry, no rash Lymphatic: no adenopathy Laboratory Results Last 24 Hours Test 01/05/17 05:25 01/05/17 05:35 Sodium Level 146 mmol/L Potassium Level 4.0 mmol/L Chloride Level 112 mmol/L Carbon Dioxide Level 27 mmol/L Anion Gap 7.0 mmol/L Blood Urea Nitrogen 13 mg/dl Creatinine 1.80 mg/dl Est Creatinine Clear Calc Drug Dose 35.6 ml/min Estimated GFR () 36.1 Estimated GFR (Non- 31.1 BUN/Creatinine Ratio 7.5 Random Glucose 106 mg/dl Calcium Level 7.7 mg/dl White Blood Count 6.41 K/uL Red Blood Count 3.56 M/uL Hemoglobin 10.5 g/dL Hematocrit 31.8 % Mean Corpuscular Volume 89.3 fL Mean Corpuscular Hemoglobin 29.5 pg Mean Corpuscular Hemoglobin Concent 33.0 g/dl RDW Standard Deviation 43.1 fL RDW Coefficient of Variation 13.2 % Platelet Count 205 K/uL Mean Platelet Volume 9.6 fL Assessment and Plan 56-year-old female admitted on 01/01/2017 because of recurrent sigmoid diverticulitis of abdominal pain, nausea and vomiting which started on 12/28/2016 , now continue nausea, and has worsening acute kidney failure pt initially presented to the ER on 12/[address] abdomen and pelvis which was diagnostic of acute sigmoid diverticulitis. She was discharged home on oral ciprofloxacin, clindamycin and oral vancomycin. She then returned on 12/30 with increased severe nausea and vomiting, headache, and a temperature of 100.4. a past medical history of diverticulitis, history of C. difficile, and has follow-up with [facility] surgeon planning for bowel resection. Acute recurrent sigmoid diverticulitis: stable Was on iV clindamycin, and IV ciprofloxacin(the patient has not tolerated metronidazole in the past) - Has requested ID consult for the options of antibiotic when discharging, has changed to Invanz on 01/01/2017, 5days/10 days - Was on pain control with Toradol 30 mg every 6 hours, was changed to morphine because of increased creatinine level - Admission team had called and left a message with the nurse, Discussed with colorectal surgeon nurse and UNDERWRITING INTERN nurse that both physicians will postpone surgery, with attempt to reschedule her in 4 weeks. They will call the patient and reschedule within 1 week. - Zofran as needed, continue Pepcid, continue Protonix Significant epigastric pain and nausea burning sensations Possible minimal improving, however she still had nausea and vomiting 1 today EGD was done yesterday on 01/04/2017 , was not remarkable Continue Pepcid and Protonix, diet as tolerated History of C. difficile: Currently has no bowel movement no diarrhea - By mouth vancomycin ordered at time of admit for ppx. Continue oral Vanco because patient is sensitive to antibiotics Acute kidney failure, seemed to peak on 01/04/2017, today significant better Etiology unknown, possible dehydration, however she is getting plenty IV fluid I believe it is adequate amount Ultrasound was negative Abdominal CT studies was not remarkable for their kidney ureter bladder, Nephrology on the case Avoid renal offensive medicine, watch for fluid dependence [place] [facility] [place] getting [place] because need biopsies Patient reported follow-up with [facility] team, will have GI more improved for intractable nausea edition, not able to keep food down Follow-up GI input and EGD results DVT prophylaxis: Ambulatory, teds, SCDs CODE STATUS: Full code Increase activities possible discharge 1- 2 days if continue stable Continued [facility] stay due to: multiple IV medications needed Discharge planning: home
[2017-01-05] MEDS: ONDANSETRON INJ 2 MG/ML 2 ML VIAL IV PRN (21:47)
[2017-01-06 00:05] VITALS: BP 109/69; PULSE 75; TEMP 37.3; O2SAT 95
[2017-01-06] MEDS: SUCRALFATE 1 GM TAB PO SCH ×3 (06:02→20:00)
[2017-01-06 06:31] LABS: BUN/CREATININE RATIO 6.8 (10-20); CALCIUM 8.2 mg/dl (8.5-10.1); CREATININE 1.4 mg/dl (0.60-1.20); MAGNESIUM 1.7 mg/dl (1.8-2.4); POTASSIUM 4.4 mmol/L (3.5-5.1)
[2017-01-06] MEDS: POTASSIUM CHLORIDE INJ 40 MEQ in DEXTROSE 5% 1000ML 1,000 ML IV SCH ×2 (07:04→18:45)
[2017-01-06 07:07] VITALS: BP 111/71; PULSE 82; TEMP 37.3; O2SAT 95
[2017-01-06] MEDS: VANCOMYCIN HCL 125 MG/2.5ML SOLN PO SCH (07:29)
[2017-01-06] MEDS: HEPARIN SOD 5000 UNIT/0.5 ML CARP SQ SCH ×2 (07:29→21:00)
[2017-01-06] MEDS: RASPBERRY SYRUP 5 ML UDP PO SCH (07:29)
[2017-01-06] MEDS ORDERED: MAGNESIUM SULFATE 1GM / D5W 1 GM in PREMIXED IN D5W 100 ML IV STA (08:15)
[2017-01-06] MEDS: FAMOTIDINE IV INJ 20 MG in DEXTROSE 5% 100ML 100 ML IV SCH ×4 (11:48→23:58)
[2017-01-06] MEDS: PANTOprazole INJ 40 MG in SYRINGE 0 ML IV SCH (11:48)
--- NOTE | 2017-01-06 12:05 | PROGRESS NOTE ---
DATE: 01/06/2017 SIGNS: The patient's vomiting has slowed down significantly. There is no emesis recorded for the last 48 hours, her EGD was negative. LABORATORY DATA: Shows a white count of 6.4, hemoglobin 10.5, platelets 205; which are stable. IMPRESSION: The patient has got diverticulitis and vomiting and renal insufficiency. Her renal insufficiency is improving as well. If she has more vomiting, I would consider doing an ultrasound of her gallbladder just to make sure there is nothing going on there. Otherwise, will continue with supportive measures for now and advance her diet as tolerated and hopefully convert to oral antibiotics.
--- NOTE | 2017-01-06 12:08 | Nephrology Progress Note ---
Nephrology Progress Note Date of Service Jan 06, 2017. Subjective No acute events overnight. Elena was seen and evaluated in her hospital room this morning. Her was at the bedside. Unfortunately, she continues to struggle with intermittent nausea and vomiting. She has not been able to tolerate oral intake. Her appetite is poor. She denies fevers or chills. She does not have significant abdominal pain. She denies shortness of breath. She is voiding urine without difficulty. Review of Systems A complete review of systems was performed. Pertinent positives are noted above. All other systems are negative. Vital Signs Last 8 Hrs Date Time Temp Pulse Resp B/P (MAP) Pulse Ox O2 Delivery O2 Flow Rate FiO2 01/06/17 08:35 Room Air 01/06/17 07:07 37.3 82 18 111/71 (84) 95 Room Air Last Recorded Weight Weight (Kilograms): 66.000 Physical Exam General Appearance: WD/WN, no apparent distress, + thin Head: normocephalic, atraumatic Eyes: normal inspection, sclerae normal ENT: normal ENT inspection, pharynx normal Neck: supple, no JVD Respiratory/Chest: lungs clear, no respiratory distress, no accessory muscle use Cardiovascular: regular rate, rhythm, no murmur Abdomen/GI: non tender, + distended Extremities/Musculoskelatal: normal inspection, + pedal edema (trace) Neurologic/Psych: alert, oriented x 3 Family History No pertinent family history Social History Smoking Status: Former smoker Drug Use: none Marital Status: Housing Status: lives with family Occupation: employed Laboratory Results Past 24 Hours 01/06/17 05:08 Test 01/06/17 05:08 Anion Gap 8.0 mmol/L (3-11) Est Creatinine Clear Calc Drug Dose 45.8 ml/min Estimated GFR () 48.9 Estimated GFR (Non- 42.2 BUN/Creatinine Ratio 6.8 (10-20) Calcium Level 8.2 mg/dl (8.5-10.1) Magnesium Level 1.7 mg/dl (1.8-2.4) Allergies Coded Allergies: Iodinated Diagnostic Agents (Verified Allergy, Unknown, ACHY,NAUSEA,WEAK, 12/29/16) Penicillins (Verified Allergy, Unknown, 12/29/16) Metronidazole (Verified Adverse Reaction, Intermediate, "PHYSICALLY UNCOMFORTABLE", 12/29/16) Medications Current Inpatient Medications Medications (Trade) Dose Ordered Sig/Jovan Route Start Time Stop Time Status Last Admin Dose Admin Ondansetron HCl (Zofran Inj) 4 mg Q6H PRN IV 12/31/16 00:15 01/30/17 00:14 01/05/17 21:47 4 MG Sucralfate (Carafate Tab) 1 gm ACHS PO 12/31/16 16:30 01/30/17 16:29 01/06/17 11:49 1 GM Morphine Sulfate (MoRPHine SULFATE INJ) 4 mg Q4 PRN IV 01/01/17 08:45 01/15/17 08:44 Heparin Sodium (Porcine) (Heparin Sq 5000 Unit/0.5ml) 5,000 unit Q12 SQ 01/02/17 21:00 01/30/17 07:59 Famotidine 20 mg/ Dextrose 102 ml @ 200 mls/hr Q12H IV 01/02/17 12:00 02/01/17 11:59 01/05/17 16:36 200 MLS/HR Potassium Chloride 40 meq/ Dextrose 1,020 ml @ 100 mls/hr [id number] IV 01/03/17 08:00 02/02/17 07:59 01/06/17 07:04 100 MLS/HR Ertapenem 500 mg/ Sodium Chloride 55 ml @ 110 mls/hr DAILY@1200 IV 01/03/17 12:00 01/11/17 11:59 01/05/17 12:10 110 MLS/HR Pantoprazole Sodium 40 mg/ Syringe 10 ml @ 5 mls/min DAILY@11 IV 01/04/17 11:00 02/03/17 10:59 Glucose (Glucose 40% Gel) 15-30 GRAMS 15 GRAMS... UD PRN PO 01/03/17 12:15 02/02/17 12:14 Glucose (Glucose Chew Tab) 4-8 Tablets 4 Tabl... UD PRN PO 01/03/17 12:15 02/02/17 12:14 Dextrose (Dextrose 50% 50ML Syringe) 25-50ML OF 50% DW IV FOR... UD PRN IV 01/03/17 12:15 02/02/17 12:14 Glucagon (Glucagon Inj) 1 mg UD PRN SQ 01/03/17 12:15 02/02/17 12:14 Raspberry (Raspberry Syrup 5ml Cup) 5 ml DAILY PO 01/05/17 08:00 01/15/17 11:59 Vancomycin HCl (Vancomycin Oral Soln) 125 mg DAILY PO 01/05/17 08:00 01/15/17 11:59 01/06/17 07:29 125 MG Acetaminophen (Ofirmev Iv) 1,000 mg Q8H PRN IV 01/05/17 13:15 02/04/17 13:14 01/05/17 13:40 1,000 MG Magnesium Oxide (Mag-Ox Tab) 400 mg BID PO 01/06/17 20:00 02/05/17 19:59 Impression (1) Acute kidney injury (2) Metabolic acidosis (3) Proteinuria (4) Hematuria (5) Diverticulitis Elena is a 56-year-old female with history of recurrent diverticulitis and C diff infection admitted to the hospital with acute diverticulitis. Baseline creatinine was 0.9 mg/dL. No history of prior proteinuria. Elena developed acute kidney injury consistent with hemodynamically mediated ATN. Creatinine peaked at 2.5 mg/dL on 01/03/17. She is now showing evidence of renal recovery. Urinalysis showing proteinuria and microscopic hematuria without any pyuria or bacteriuria. She has been afebrile, no skin rash or arthralgia. She is non oliguric. Blood pressure has been stable but low. There is a documented history of microscopic hematuria but not proteinuria. 24 hour urine documented 750 mg/d during EFREN. Recommendations -- Document I/O's -- Repeat metabolic profile tomorrow AM -- Maintain even fluid balance - stop IVF once oral intake appropriate -- D5 decreased to 80 ml/hr this morning -- Medications currently appropriately dosed for renal function
[2017-01-06] MEDS: ERTAPENEM IV 500 MG in SODIUM CHLORIDE 0.9% 50 ML IV SCH (12:46)
[2017-01-06 16:02] VITALS: BP 123/73; PULSE 72; TEMP 37; O2SAT 95
--- NOTE | 2017-01-06 17:10 | Progress Note ---
Subjective Date of Service: Jan 06, 2017. Subjective Pt evaluation today including: conversation w/ patient, physical exam, chart review, lab review, review of studies, review of inpatient medication list Continue report nausea, and poor by mouth intake, continue to have heartburn or burning sensations in upper abdomen, Problem List Medical Problems: (1) Acute diverticulitis Status: Acute (2) Colitis Status: Acute (3) Diarrhea Status: Acute (4) Diverticulitis Status: Chronic (5) Leukocytosis Status: Acute (6) Lower abdominal pain Status: Acute Review of Systems Constitutional: No fever, No chills, No sweats, No weight loss, No weakness, No fatigue, No problem reported Eyes: No worsening of vision, No eye pain, No redness, No discharge, No diplopia ENT: No hearing loss, No unusual epistaxis, No nasal symptoms, No sore throat, No tinnitus, No dental problems, No trouble swallowing Respiratory: No cough, No sputum, No wheezing, No shortness of breath, No dyspnea on exertion, No dyspnea at rest, No hemoptysis Cardiac: No chest pain, No orthopnea, No PND, No edema, No claudication, No palpitations Abdomen: + nausea, No pain, No vomiting, No diarrhea, No constipation Musculoskeletal: No joint pain, No muscle pain, No swelling, No calf pain Female : No dysuria, No urinary frequency, No hematuria, No incontinence, No abnormal vaginal bleeding, No vaginal discharge Neurologic: No memory loss, No paralysis, No weakness, No numbness/tingling, No vertigo, No balance problems Psychiatric: No depression symptoms, No anhedonism, No anxiety, No insomnia, No substance abuse Heme: No abnormal bleeding/bruising, No clotting problems, No swollen lymph nodes, No night sweats Endo: No fatigue, No excessive thirst, No excessive urination Skin: No rash, No itch, No new/changing skin lesions, No color change, No bleeding Objective Vital Signs Date Time Temp Pulse Resp B/P (MAP) Pulse Ox O2 Delivery O2 Flow Rate FiO2 01/06/17 16:02 37.0 72 16 123/73 (90) 95 Room Air 01/06/17 08:35 Room Air 01/06/17 07:07 37.3 82 18 111/71 (84) 95 Room Air 01/06/17 00:05 37.3 75 18 109/69 (82) 95 Room Air 01/06/17 00:00 Room Air 01/05/17 20:00 Room Air Physical Exam General Appearance: WD/WN, no apparent distress, + thin, + pertinent finding ( pale) Eyes: normal inspection, PERRL, EOMI, sclerae normal ENT: normal ENT inspection, hearing grossly normal, pharynx normal Neck: supple, no adenopathy, thyroid normal, no JVD, no carotid bruits, trachea midline Respiratory/Chest: chest non-tender, lungs clear, normal breath sounds, no respiratory distress, no accessory muscle use Cardiovascular: regular rate, rhythm, no edema, no gallop, no JVD, no murmur Abdomen: normal bowel sounds, non tender, soft, no organomegaly, no pulsatile mass Extremities: normal range of motion, non-tender, normal inspection, no pedal edema, no calf tenderness, normal capillary refill, pelvis stable Neurologic/Psychiatric: portable sawyer II-XII nml as tested, no motor/sensory deficits, alert, normal mood/affect, oriented x 3 Skin: normal color, warm/dry, no rash Lymphatic: no adenopathy Laboratory Results Last 24 Hours Test 01/06/17 05:08 Sodium Level 144 mmol/L Potassium Level 4.4 mmol/L Chloride Level 109 mmol/L Carbon Dioxide Level 27 mmol/L Anion Gap 8.0 mmol/L Blood Urea Nitrogen 9 mg/dl Creatinine 1.40 mg/dl Est Creatinine Clear Calc Drug Dose 45.8 ml/min Estimated GFR () 48.9 Estimated GFR (Non- 42.2 BUN/Creatinine Ratio 6.8 Random Glucose 96 mg/dl Calcium Level 8.2 mg/dl Magnesium Level 1.7 mg/dl Assessment and Plan 56-year-old female admitted on 01/01/2017 because of recurrent sigmoid diverticulitis of abdominal pain, nausea and vomiting which started on 12/28/2016 , now continue nausea, and has worsening acute kidney failure pt initially presented to the ER on 12/[address] abdomen and pelvis which was diagnostic of acute sigmoid diverticulitis. She was discharged home on oral ciprofloxacin, clindamycin and oral vancomycin. She then returned on 12/30 with increased severe nausea and vomiting, headache, and a temperature of 100.4. a past medical history of diverticulitis, history of C. difficile, and has follow-up with [facility] surgeon planning for bowel resection. Acute recurrent sigmoid diverticulitis: stable Was on iV clindamycin, and IV ciprofloxacin(the patient has not tolerated metronidazole in the past) - Has requested ID consult for the options of antibiotic when discharging, has changed to Invanz on 01/01/2017, 6days/10 days - Infectious disease preferred has been on IV antibiotics, - Patient seems well water difficult to continue IV antibiotics such as Invanz, will need to talk to infectious disease for the final plan - Admission team had called and left a message with the nurse, Discussed with colorectal surgeon nurse and [facility] [employer] nurse that both physicians will postpone surgery, with attempt to reschedule her in 4 weeks. They will call the patient and reschedule within 1 week. - Zofran as needed, Significant epigastric pain and nausea burning sensations, still is a problem EGD was done yesterday on 01/04/2017 , was not remarkable Continue Carafate , I will increase Carafate to 1 g by mouth 4 times a day, gallbladder ultrasound requested per recommendation from GI Pepcid and Protonix, diet as tolerated History of C. difficile: Currently has no bowel movement no diarrhea - By mouth vancomycin ordered at time of admit for ppx. Continue oral Vanco because patient is sensitive to antibiotics Acute kidney failure, seemed to peak on 01/04/2017, continue improving Etiology unknown, possible dehydration, however she is getting plenty IV fluid I believe it is adequate amount Ultrasound was negative Abdominal CT studies was not remarkable for their kidney ureter bladder, Nephrology on the case Avoid renal offensive medicine, watch for fluid dependence Patient reported follow-up with [facility] team, will have GI more improved for intractable nausea edition, not able to keep food down DVT prophylaxis: Ambulatory, teds, SCDs CODE STATUS: Full code Increase activities possible discharge 1- 2 days if continue stable Continued [facility] stay due to: multiple IV medications needed Discharge planning: home
[2017-01-06] MEDS: MAGNESIUM OXIDE 400 MG TAB PO SCH (20:00)
[2017-01-06 21:41] VITALS: TEMP 37.7
[2017-01-06 23:50] VITALS: BP 145/81; PULSE 70; TEMP 37.9; O2SAT 97
[2017-01-07 02:30] VITALS: TEMP 37.1
[2017-01-07 06:26] LABS: HEMATOCRIT 33.6 % (37-47); MEAN CELL VOLUME 88.2 fL (80-100); MEAN CORPUSCULAR HEMOGLOBIN 29.7 pg (25-34); MEAN CORPUSCULAR HGB CONC 33.6 g/dl (32-36); MEAN PLATELET VOLUME 9.4 fL (7.4-10.4); PLATELET COUNT 300 K/uL (130-400); RED BLOOD COUNT 3.81 M/uL (4.2-5.4)
[2017-01-07 06:35] LABS: BUN/CREATININE RATIO 7.1 (10-20); CALCIUM 8.6 mg/dl (8.5-10.1); CREATININE 1.2 mg/dl (0.60-1.20); MAGNESIUM 1.9 mg/dl (1.8-2.4); PHOSPHORUS 3.6 mg/dl (2.5-4.9); POTASSIUM 4.3 mmol/L (3.5-5.1)
--- NOTE | 2017-01-07 07:18 | DIAGNOSTIC IMAGING REPORT ---
ABDOMINAL ULTRASOUND, RIGHT UPPER QUADRANT HISTORY: n/v to rule GB disease. COMPARISON: Abdomen and pelvis CT 12/29/2016. FINDINGS: Pancreas: The pancreas demonstrates a normal echotexture. Liver: Unremarkable. Gallbladder: No gallbladder wall thickening. No gallstones. CBD: 4 mm. Right kidney: No hydronephrosis. Questionable mild urothelial thickening. Miscellaneous: Trace right pleural effusion. IMPRESSION: 1. Questionable mild urothelial thickening within the right kidney. Recommend correlation with urinalysis. No hydronephrosis. 2. Normal gallbladder. No gallstones. 3. Trace right pleural effusion. Electronically signed by: Vignesh Nicole M.D. 01/07/2017 7:17 AM Dictated Date/Time: 01/07/2017 7:10 AM
[2017-01-07 07:28] VITALS: BP 103/70; PULSE 82; TEMP 37.3; O2SAT 94
[2017-01-07] MEDS: HEPARIN SOD 5000 UNIT/0.5 ML CARP SQ SCH (09:00)
[2017-01-07] MEDS: POTASSIUM CHLORIDE INJ 40 MEQ in DEXTROSE 5% 1000ML 1,000 ML IV SCH (09:27)
[2017-01-07] MEDS: VANCOMYCIN HCL 125 MG/2.5ML SOLN PO SCH (09:29)
[2017-01-07] MEDS: SUCRALFATE 1 GM TAB PO SCH ×2 (09:29→11:43)
[2017-01-07] MEDS: RASPBERRY SYRUP 5 ML UDP PO SCH (09:29)
[2017-01-07] MEDS: MAGNESIUM OXIDE 400 MG TAB PO SCH (09:29)
--- NOTE | 2017-01-07 10:37 | Nephrology Progress Note ---
Nephrology Progress Note Date of Service Jan 07, 2017. Chief Complaint EFREN Subjective No acute events overnight. Nausea improving. Appetite fair. Tolerating oral fluids. Voiding urine without difficulty. No abdominal pain. No fevers or chills. Review of Systems A complete review of systems was performed. Pertinent positives are noted above. All other systems are negative. Vital Signs Last 8 Hrs Date Time Temp Pulse Resp B/P (MAP) Pulse Ox O2 Delivery O2 Flow Rate FiO2 01/07/17 09:30 Room Air 01/07/17 07:28 37.3 82 16 103/70 (81) 94 Room Air Last Recorded Weight Weight (Kilograms): 66.000 Physical Exam General Appearance: WD/WN, no apparent distress Head: normocephalic, atraumatic Eyes: normal inspection, sclerae normal ENT: normal ENT inspection, pharynx normal Neck: supple, no JVD Respiratory/Chest: lungs clear, no respiratory distress, no accessory muscle use Cardiovascular: regular rate, rhythm, no gallop, no murmur Back: no CVA tenderness Abdomen/GI: non tender, soft Extremities/Musculoskelatal: normal inspection, no pedal edema Neurologic/Psych: alert, oriented x 3 Family History No pertinent family history Social History Smoking Status: Former smoker Drug Use: none Marital Status: Housing Status: lives with family Occupation: employed Laboratory Results Past 24 Hours 01/07/17 05:40 01/07/17 05:40 Test 01/07/17 05:40 Red Blood Count 3.81 M/uL (4.2-5.4) Mean Corpuscular Volume 88.2 fL (80-100) Mean Corpuscular Hemoglobin 29.7 pg (25-34) Mean Corpuscular Hemoglobin Concent 33.6 g/dl (32-36) RDW Standard Deviation 41.7 fL (36.4-46.3) RDW Coefficient of Variation 12.8 % (11.5-14.5) Mean Platelet Volume 9.4 fL (7.4-10.4) Anion Gap 6.0 mmol/L (3-11) Est Creatinine Clear Calc Drug Dose 53.4 ml/min Estimated GFR () 58.9 Estimated GFR (Non- 50.8 BUN/Creatinine Ratio 7.1 (10-20) Calcium Level 8.6 mg/dl (8.5-10.1) Phosphorus Level 3.6 mg/dl (2.5-4.9) Magnesium Level 1.9 mg/dl (1.8-2.4) Allergies Coded Allergies: Iodinated Diagnostic Agents (Verified Allergy, Unknown, ACHY,NAUSEA,WEAK, 12/29/16) Penicillins (Verified Allergy, Unknown, 12/29/16) Metronidazole (Verified Adverse Reaction, Intermediate, "PHYSICALLY UNCOMFORTABLE", 12/29/16) Medications Current Inpatient Medications Medications (Trade) Dose Ordered Sig/Jovan Route Start Time Stop Time Status Last Admin Dose Admin Ondansetron HCl (Zofran Inj) 4 mg Q6H PRN IV 12/31/16 00:15 01/30/17 00:14 01/05/17 21:47 4 MG Morphine Sulfate (MoRPHine SULFATE INJ) 4 mg Q4 PRN IV 01/01/17 08:45 01/15/17 08:44 Heparin Sodium (Porcine) (Heparin Sq 5000 Unit/0.5ml) 5,000 unit Q12 SQ 01/02/17 21:00 01/30/17 07:59 Famotidine 20 mg/ Dextrose 102 ml @ 200 mls/hr Q12H IV 01/02/17 12:00 02/01/17 11:59 01/05/17 16:36 200 MLS/HR Potassium Chloride 40 meq/ Dextrose 1,020 ml @ 80 mls/hr [id number] IV 01/03/17 08:00 02/02/17 07:59 01/07/17 09:27 80 MLS/HR Ertapenem 500 mg/ Sodium Chloride 55 ml @ 110 mls/hr DAILY@1200 IV 01/03/17 12:00 01/11/17 11:59 01/06/17 12:46 110 MLS/HR Pantoprazole Sodium 40 mg/ Syringe 10 ml @ 5 mls/min DAILY@11 IV 01/04/17 11:00 02/03/17 10:59 Glucose (Glucose 40% Gel) 15-30 GRAMS 15 GRAMS... UD PRN PO 01/03/17 12:15 02/02/17 12:14 Glucose (Glucose Chew Tab) 4-8 Tablets 4 Tabl... UD PRN PO 01/03/17 12:15 02/02/17 12:14 Dextrose (Dextrose 50% 50ML Syringe) 25-50ML OF 50% DW IV FOR... UD PRN IV 01/03/17 12:15 02/02/17 12:14 Glucagon (Glucagon Inj) 1 mg UD PRN SQ 01/03/17 12:15 02/02/17 12:14 Raspberry (Raspberry Syrup 5ml Cup) 5 ml DAILY PO 01/05/17 08:00 01/15/17 11:59 Vancomycin HCl (Vancomycin Oral Soln) 125 mg DAILY PO 01/05/17 08:00 01/15/17 11:59 01/06/17 07:29 125 MG Acetaminophen (Ofirmev Iv) 1,000 mg Q8H PRN IV 01/05/17 13:15 02/04/17 13:14 01/05/17 13:40 1,000 MG Magnesium Oxide (Mag-Ox Tab) 400 mg BID PO 01/06/17 20:00 02/05/17 19:59 Sucralfate (Carafate Tab) 1 gm QID PO 01/06/17 20:00 01/30/17 16:29 Impression (1) Acute kidney injury (2) Metabolic acidosis (3) Proteinuria (4) Hematuria (5) Diverticulitis Elena is a 56-year-old female with history of recurrent diverticulitis and C diff infection admitted to the hospital with acute diverticulitis. Baseline creatinine was 0.9 mg/dL. No history of prior proteinuria. Elena developed acute kidney injury consistent with hemodynamically mediated ATN. Creatinine peaked at 2.5 mg/dL on 01/03/17. She continues showing evidence of renal recovery. Creatinine 1.2 mg/dL this morning. Urinalysis was showing proteinuria and microscopic hematuria without any pyuria or bacteriuria. She has been afebrile, no skin rash or arthralgia. She is non oliguric. Blood pressure has been stable but low. There is a documented history of microscopic hematuria but not proteinuria. 24 hour urine documented 750 mg/d during EFREN. At this time, metabolic profile is normal and oral intake improving. IVF will be discontinued. Continue to monitor metabolic profile. I will sign off but schedule outpatient follow up with Dr. Crowell in the nephrology clinic within 1 -2 weeks. Recommendations -- Repeat metabolic profile tomorrow AM -- Stop IVF -- Continue oral magnesium replacement QD -- Medications currently appropriately dosed for renal function -- Follow up with Dr. Crowell in the nephrology clinic within 1-2 weeks with pre appointment renal profile
[2017-01-07 11:30] LABS: ALBUMIN % 51.26 %; ALPHA-2-GLOBULIN % 9.79 %; CREATININE UR 151 MG/DL (20-320); GAMMA GLOBULIN % 17.82 %
[2017-01-07] MEDS ORDERED: SIMETHICONE 80 MG CHEW PO PRN (11:30)
--- NOTE | 2017-01-07 11:37 | Infectious Disease Progress Nt ---
Progress Note Date of Service Jan 07, 2017. Subjective Pt evaluation today including: conversation w/ patient, physical exam, chart review, lab review, review of studies, conversation w/ search consultant (Dr. Nagel), review of inpatient medication list Patient with WBC count today of 7.90. Abdominal U/S Showed mild thickening within the right kidney but no hydronephrosis, normal gallbladder, and no gallstones. Patient states that her nausea is slightly better. Her creatinine has continued to trend down and was 1.20 today. She is hoping to be discharged home soon. She has been eating small amounts. All Other Systems: Reviewed and Negative Medications Current Inpatient Medications Medications (Trade) Dose Ordered Sig/Jovan Route Start Time Stop Time Status Last Admin Dose Admin Ondansetron HCl (Zofran Inj) 4 mg Q6H PRN IV 12/31/16 00:15 01/30/17 00:14 01/05/17 21:47 4 MG Morphine Sulfate (MoRPHine SULFATE INJ) 4 mg Q4 PRN IV 01/01/17 08:45 01/15/17 08:44 Heparin Sodium (Porcine) (Heparin Sq 5000 Unit/0.5ml) 5,000 unit Q12 SQ 01/02/17 21:00 01/30/17 07:59 Famotidine 20 mg/ Dextrose 102 ml @ 200 mls/hr Q12H IV 01/02/17 12:00 02/01/17 11:59 01/05/17 16:36 200 MLS/HR Ertapenem 500 mg/ Sodium Chloride 55 ml @ 110 mls/hr DAILY@1200 IV 01/03/17 12:00 01/11/17 11:59 01/07/17 11:44 110 MLS/HR Pantoprazole Sodium 40 mg/ Syringe 10 ml @ 5 mls/min DAILY@11 IV 01/04/17 11:00 02/03/17 10:59 Glucose (Glucose 40% Gel) 15-30 GRAMS 15 GRAMS... UD PRN PO 01/03/17 12:15 02/02/17 12:14 Glucose (Glucose Chew Tab) 4-8 Tablets 4 Tabl... UD PRN PO 01/03/17 12:15 02/02/17 12:14 Dextrose (Dextrose 50% 50ML Syringe) 25-50ML OF 50% DW IV FOR... UD PRN IV 01/03/17 12:15 7/8/17 12:14 Glucagon (Glucagon Inj) 1 mg UD PRN SQ 01/03/17 12:15 02/02/17 12:14 Raspberry (Raspberry Syrup 5ml Cup) 5 ml DAILY PO 01/05/17 08:00 01/15/17 11:59 Vancomycin HCl (Vancomycin Oral Soln) 125 mg DAILY PO 01/05/17 08:00 01/15/17 11:59 01/06/17 07:29 125 MG Acetaminophen (Ofirmev Iv) 1,000 mg Q8H PRN IV 01/05/17 13:15 02/04/17 13:14 01/05/17 13:40 1,000 MG Sucralfate (Carafate Tab) 1 gm QID PO 01/06/17 20:00 01/30/17 16:29 Magnesium Oxide (Mag-Ox Tab) 400 mg DAILY PO 01/08/17 08:00 02/05/17 19:59 Simethicone (Mylicon Chew Tab) 80 mg Q6H PRN PO 01/07/17 11:30 02/06/17 11:29 01/07/17 11:40 80 MG Objective Vital Signs Date Time Temp Pulse Resp B/P (MAP) Pulse Ox O2 Delivery O2 Flow Rate FiO2 01/07/17 09:30 Room Air 01/07/17 07:28 37.3 82 16 103/70 (81) 94 Room Air 01/07/17 02:30 37.1 01/07/17 00:00 Room Air 01/06/17 23:50 37.9 70 20 145/81 (102) 97 Room Air 01/06/17 21:57 Room Air 01/06/17 21:41 37.7 01/06/17 16:02 37.0 72 16 123/73 (90) 95 Room Air Physical Exam General Appearance: WD/WN, no apparent distress Eyes: normal inspection, sclerae normal ENT: hearing grossly normal Neck: supple, trachea midline Respiratory/Chest: no respiratory distress, no accessory muscle use Cardiovascular: regular rate, rhythm Extremities: normal range of motion Neurologic/Psychiatric: alert, normal mood/affect Skin: normal color, warm/dry, no rash Laboratory Results Last 24 Hours Test 01/07/17 05:40 White Blood Count 7.90 K/uL Red Blood Count 3.81 M/uL Hemoglobin 11.3 g/dL Hematocrit 33.6 % Mean Corpuscular Volume 88.2 fL Mean Corpuscular Hemoglobin 29.7 pg Mean Corpuscular Hemoglobin Concent 33.6 g/dl RDW Standard Deviation 41.7 fL RDW Coefficient of Variation 12.8 % Platelet Count 300 K/uL Mean Platelet Volume 9.4 fL Sodium Level 142 mmol/L Potassium Level 4.3 mmol/L Chloride Level 106 mmol/L Carbon Dioxide Level 30 mmol/L Anion Gap 6.0 mmol/L Blood Urea Nitrogen 9 mg/dl Creatinine 1.20 mg/dl Est Creatinine Clear Calc Drug Dose 53.4 ml/min Estimated GFR () 58.9 Estimated GFR (Non- 50.8 BUN/Creatinine Ratio 7.1 Random Glucose 106 mg/dl Calcium Level 8.6 mg/dl Phosphorus Level 3.6 mg/dl Magnesium Level 1.9 mg/dl Assessment and Plan Patient with acute diverticulitis in the setting of multiple previous episodes of diverticulitis and history of recurrent C. Diff colitis and now with EFREN. The patient is currently on IV Ertapenem. Her creatinine has improved. She overall appears to be improved from admission. I feel that this patient should complete 14 days total of IV Ertapenem- can increase dose to 1 g daily with improved CrCl. She however would prefer to going to the [facility] to complete this course via peripheral IV site if able. Once medically cleared, this patient can complete her course as an outpatient. PROVIDER ADDENDUM: Patient reviewed with Ms. Thompson. Agree with above assessment.
[2017-01-07] MEDS: PANTOprazole INJ 40 MG in SYRINGE 0 ML IV SCH (11:43)
[2017-01-07] MEDS: FAMOTIDINE IV INJ 20 MG in DEXTROSE 5% 100ML 100 ML IV SCH (11:43)
[2017-01-07] MEDS: ERTAPENEM IV 500 MG in SODIUM CHLORIDE 0.9% 50 ML IV SCH (11:44)
[2017-01-07] MEDS ORDERED: PANT40TA PO (11:58)
[2017-01-07] MEDS ORDERED: MYL80 PO (11:58)
[2017-01-07] MEDS ORDERED: SUCR1TAB PO (11:58)
[2017-01-07] MEDS ORDERED: INVI1 IV (11:58)
[2017-01-07] MEDS ORDERED: VNCS125 PO (11:58)
--- NOTE | 2017-01-07 12:14 | Discharge Instructions ---
Discharge Instructions Date of Service Jan 07, 2017. Admission Reason for Admission: Diverticulitis Discharge Discharge Diagnosis / Problem: Recurrent sigmoid diverticulitis, C diff colitis , acute renal failure Discharge Goals Goal(s): Improve function, Increase independence, Therapeutic intervention ( need sigmoidectomy at [facility]) Activity Recommendations Activity Limitations: resume your previous activity Lifting Limitations: none Exercise/Sports Limitations: as tolerated . Instructions / Follow-Up Instructions / Follow-Up MEDICATIONS: - INVANZ: antibiotic, once daily at [facility], take until 01/13 - PROTONIX: reduces acid in stomach, intended to treat epigastric pain - CARAFATE: take for epigastric pain, coats stomach - VANCOMYCIN: take as prescribed, infectious disease feels like you need to continue this, perhaps a taper since you will continue to be on antibiotics Diverticulitis: clinically resolving, continue INVANZ as prescribed and follow up with surgeons at [facility] for sigmoidectomy for definitive treatment of the problem Acute Renal Failure: resolved, follow up with Nephrology in two weeks with lab work C diff diarrhea: you need to continue to treat since the IV antibiotics will make you more prone to recurrence FOLLOW UP - Dr. Crowell in 1-2 weeks, call for appointment, you need lab work prior to appointment, ask that it is ordered - Dr. Pisano in 1 week, call for appointment - surgeons at [facility], should have new surgery scheduled in a few weeks Current Hospital Diet Patient's current hospital diet: Low Fiber Diet Discharge Diet Recommended Diet: Low Fiber Diet Fluid Restriction: None Procedures Procedures Performed: EGD Pending Studies Studies pending at discharge: no Medical Emergencies . Who to Call and When: Medical Emergencies: If at any time you feel your situation is an emergency, please call 911 immediately. . Non-Emergent Contact Non-Emergency issues call your: Primary Care Provider, [employer], Surgeon Call Non-Emergent contact if: you have a fever, your pain is worsening, you have any medication questions . . "Provider Documentation" section prepared by Kaushik Nagel. . VTE Core Measure Inpt VTE Proph given/why not?: Unfractionated heparin SQ [place] Drug Monitoring Program Search Results: no issues identified
[2017-01-07 12:38] VITALS: BP 103/70; PULSE 82; TEMP 37.3; O2SAT 94
[2017-01-08] MEDS ORDERED: MAGNESIUM OXIDE 400 MG TAB PO SCH (08:00)
--- NOTE | 2017-01-08 08:47 | Discharge Summary ---
Discharge Summary Date of Service Jan 07, 2017. Discharge Summary Admission Date: Dec 31, 2016 at 00:20 Discharge Date: Jan 07, 2017 Discharge Disposition: Home Principal Diagnosis: Sigmoid diverticulitis Problems/Secondary Diagnoses: Acute renal failure, resolved C diff colitis Immunizations: Have You Had Influenza Vaccine: No History of Tetanus Vaccine?: Yes History of Pneumococcal: No History of Hepatitis B Vaccine: No Procedures: EGD - patchy erythema in stomach, no bleeding, no ulcers, normal esophagus and normal duodenum Consultations: Gastroenterology Infectious disease Nephrology Medication Reconciliation New Medications: Ertapenem (Invanz) 100 Mg/1 Ml Inj 500 MG IV DAILY for 6 Days, 0 Refills Pantoprazole (Protonix) 40 Mg Tab 40 MG PO DAILY for 30 Days, #30 TABS 1 Refill Simethicone (Mi-Acid Gas Relief) 80 Mg Chew 80 MG PO Q6H PRN for Gas or Constipation, #30 TABS 1 Refill Sucralfate (Sucralfate) 1 Gm Tab 1 GM PO QID, #28 TAB 0 Refills Vancomycin HCl (Vancomycin HCl) 125 Mg/2.5 Ml Susp 125 MG PO DAILY for 14 Days, #35 ML 1 Refill Discontinued Medications: Ciprofloxacin Hcl (Cipro) 500 Mg Tab 500 MG PO BID, #20 TAB Clindamycin Hcl (Cleocin) 300 Mg Cap 300 MG PO TID for 10 Days, CAP Vancomycin HCl (Vancomycin HCl) 125 Mg/2.5 Ml Susp 125 MG PO QID for 10 Days Discharge Exam Patient feeling well in the morning, requesting to go home. She had discussed the plan with Infectious Disease, planned for 6 more day of Invanz. Discussed a PICC line, she preferred to go [facility] for new peripheral IV site. No diarrhea, no abdominal pain. Reviewed lab work, her kidney function was back to normal. Vitals stable, no fever. She was eating well. Review of Systems: Constitutional: No fever, No chills, No sweats, No weight loss, No weakness , No fatigue, No problem reported Eyes: No worsening of vision, No eye pain, No redness, No discharge, No diplopia, No problem reported ENT: No hearing loss, No unusual epistaxis, No nasal symptoms, No sore throat, No tinnitus, No dental problems, No trouble swallowing, No problem reported Respiratory: No cough, No sputum, No wheezing, No shortness of breath, No dyspnea on exertion, No dyspnea at rest, No hemoptysis, No problem reported Cardiovascular: No chest pain, No orthopnea, No PND, No edema, No claudication, No palpitations, No problem reported Abdomen: No pain, No nausea, No vomiting, No diarrhea, No constipation, No GI bleeding, No problem reported Musculoskeletal: No joint pain, No muscle pain, No swelling, No calf pain, No problem reported Genitourinary - Female: No dysuria, No urinary frequency, No urinary urgency , No urinary incontinence Neurologic: No memory loss, No paralysis, No weakness, No numbness/tingling , No vertigo, No balance problems, No problem reported Psychiatric: No depression symptoms, No anhedonism, No anxiety, No insomnia , No substance abuse, No problem reported Endocrine: No fatigue, No excessive thirst, No excessive urination, No problem reported Hematologic / Lymphatic: No abnormal bleeding/bruising, No clotting problems , No swollen lymph nodes, No night sweats, No problem reported Integumentary: No rash, No itch, No new/changing skin lesions, No color change, No bleeding, No problem reported Physical Exam: General Appearance: no apparent distress, + thin Eyes: normal inspection, EOMI, sclerae normal ENT: normal ENT inspection, hearing grossly normal, pharynx normal Neck: supple, no adenopathy, no JVD, trachea midline Respiratory/Chest: chest non-tender, lungs clear, normal breath sounds, no respiratory distress, no accessory muscle use Cardiovascular: regular rate, rhythm, no edema, no gallop, no JVD, no murmur , normal peripheral pulses Abdomen / GI: normal bowel sounds, non tender, soft, no organomegaly Extremities: normal inspection, no calf tenderness, normal capillary refill , no pedal edema, normal range of motion, pelvis stable Neurologic/Psychiatric: almond sorter II-XII nml as tested, no motor/sensory deficits , alert, normal mood/affect, normal reflexes, oriented x 3 Skin: normal color, warm/dry, no rash Hospital Course 56-year-old female admitted on 01/01/2017 because of recurrent sigmoid diverticulitis of abdominal pain, nausea and vomiting which started on 12/28/2016 patient initially presented to the ER on 12/[address] abdomen and pelvis which was diagnostic of acute sigmoid diverticulitis. She was discharged home on oral ciprofloxacin, clindamycin and oral vancomycin. She then returned on 12/30 with increased severe nausea and vomiting, headache, and a temperature of 100.4. she was admitted for IV antibiotics - Acute recurrent sigmoid diverticulitis: resolving well, no abdominal pain, no diarrhea, tolerating diet afebrile, vitals stable, normal WBC initially given Clindamycin and Cipro IV, infectious disease recommended Invanz IV for ease of use plan to treat with Invanz 1000mg IV daily until 01/13, will [facility] with peripheral IV, refused a PICC line plan to follow up with [place] colorectal surgery in several weeks for sigmoidectomy - Significant epigastric pain and nausea burning sensations, EGD showed erythematous patchy changes, no ulcers GI recommended Carafate, Protonix - History of C. difficile: Currently has no bowel movement no diarrhea will continue Vancomycin PO per ID recommendations since the patient is going to be on IV antibiotics, high risk of recurrence - Acute kidney failure, peaked on 01/04/2017 and then steady improvement daily nephrology feels that it was hemodynamically mediated ATN Cr back to 1.0 on the day of discharge, making adequate urine, electrolytes stable scheduled for follow up with Dr. Crowell with lab work in 1-2 weeks renal US normal plan: IV Invanz until 01/13, PO Vanco to suppress C diff, follow up with PCP, nephrology and then plan for sigmoidectomy and hysterectomy at [facility] in a few weeks Total Time Spent: Greater than 30 minutes This includes examination of the patient, discharge planning, medication reconciliation, and communication with other providers. Discharge Instructions Please refer to the electronic Patient Visit Report (Discharge Instructions) for additional information. Follow-Up Dr. Pisano in one week Dr. Crowell in 1-2 weeks [place] colorectal surgery in a few weeks, plan for elective sigmoidectomy Additional Copies To Sarkis Rodriguez M.D.; Nicolasa Crowell MD; Magnolia Pisano M.D.
[2017-01-08 23:03] LABS: ALBUMIN 2.7 G/DL (3.8-4.8); COMPLEMENT C5 TC 45054P** 17.1 mg/dL (6.0-20.0); FREE KAPPA 14.3 MG/L (3.3-19.4); FREE KAPPA/LAMBDA RATIO 1.51 (0.26-1.65); FREE LAMBDA 9.5 MG/L (5.7-26.3); GAMMA GLOBULIN 0.6 G/DL (0.8-1.7); MYELOPEROXIDASE AB <1.0 AI (<1.0); TOTAL PROTEIN 4.9 G/DL (6.2-8.3)
== END 2017-01-07 15:20 | disposition home or self-care (01) | DRG 392 ==
LOC: C.EDB 21:53 → C.4E 12-31 00:20 → ENRESERV 12-31 00:43
PROVIDERS: ADMIT Family Medicine; ATTEND Internal Medicine
PROC: 0DJ08ZZ Inspection of Upper Intestinal Tract, Via Natural or Artificial Opening Endoscopic (ICD-10-PCS; principal; 2017-01-04 14:40)
DX: K57.92 Diverticulitis of intestine, part unspecified, without perforation or abscess without bleeding (principal); A04.7 Enterocolitis due to Clostridium difficile; N17.9 Acute kidney failure, unspecified; E87.2 Acidosis; Z88.0 Allergy status to penicillin; Z87.440 Personal history of urinary (tract) infections; Z87.891 Personal history of nicotine dependence; Z88.8 Allergy status to other drugs, medicaments and biological substances; Z91.041 Radiographic dye allergy status

== ENCOUNTER → 2017-01-10 | Outpatient (CLI) | payer BC ==
[~2017-01-10] MED LIST changes: -CIPR-255 PO; -CLIN300C2 PO; +INVI1 IV; +MYL80 PO; +VNCS125 PO; -VNCSEMP PO
--- NOTE | 2017-01-10 11:00 | DIAGNOSTIC IMAGING REPORT ---
LEFT SHOULDER 3 VIEWS HISTORY: LEFT SHOULDER PAIN COMPARISON: Left shoulder MRI 01/28/2012. FINDINGS: There is no fracture or dislocation. Soft tissues are unremarkable. No radiopaque foreign bodies. The left clavicle is intact. Cartilage spaces are maintained for age. IMPRESSION: No fractures. Electronically signed by: Vignesh Nicole M.D. 01/10/2017 10:59 AM Dictated Date/Time: 01/10/2017 10:58 AM
== END | disposition home or self-care (01) ==
LOC: C.RDSM 15:04
PROVIDERS: ATTEND Physician Assistant
DX: M25.512 Pain in left shoulder (principal)

== ENCOUNTER 2025-01-12 19:15 | Inpatient (IN) ==
--- NOTE | 2025-01-12 19:47 | Emergency Department Note ---
Impression & Plan Colonic obstruction ED Provider Note HISTORY OF PRESENT ILLNESS: Patient is a 64-year-old female presenting with abdominal pain and vomiting. This is the patient's third visit in 24 hours. She reports that "I feel so constipated." She reports she has been taking Colace, mag citrate and has had multiple enemas at home and during her visit in the ER. She reports that she has not passed flatus or had a bowel movement in over 48 hours. She states that she is having significant abdominal pain throughout her lower abdomen. Reports nausea and has had dry heaving but states "I have nothing left to throw up." She denies any fevers. Has had multiple abdominal surgeries in the past. She currently rates her pain a 10 out of 10. ROS: as above PHYSICAL EXAM: Constitutional: Patient appears in mild distress. Patient is screaming in pain and rolling around on the bed in pain. HENT: Head: Normocephalic and atraumatic. Eyes: EOMI, PERRL Mouth/Throat: Mucous membranes moist. Neck: Trachea midline. Neck supple. Cardiovascular: RRR, No murmurs, rubs or gallops. Intact distal pulses. Pulmonary/Chest: No respiratory distress. Breath sounds clear and equal bilaterally. No wheezes or rales. Abdominal: Abdomen soft, no tenderness, rebound or guarding. Musculoskeletal: No edema, tenderness or deformity noted. Skin: Warm and dry. No rash, erythema, pallor or cyanosis Psychiatric: Appropriate mood and affect for situation. Neurological: Alert and keenly responsive. CN II-XII grossly intact, moving all extremities equally and fully. MDM: - Vitals signs stable. - History obtained via patient. History as above. - Chronic conditions affecting care: GERD - Differential diagnoses include, but are not limited to: Ischemic colitis; bowel obstruction; constipation; diverticulitis; colitis - Order placed for continuous cardiac monitoring. At this time, monitor showed rate of 90 bpm with normal sinus rhythm, per my interpretation. - External medical records reviewed. - Laboratory workup interpreted by myself showed leukocytosis (WBC 12.40) with neutrophil predominance; slight hyponatremia (Na 133); normal lipase; normal lactate - Given 2.5 mg IV droperidol for her vomiting and pain management. On reassessment, patient much more comfortable. - Though the chart shows that the patient's IV contrast allergy was nausea/vomiting, she did disclose to the community service technician that her allergy is actually that her throat closes. As such, she was given 80 mg of Solu-Medrol and 25 mg of IV Benadryl for pretreatment. - CT abdomen/pelvis with IV contrast showed a colonic obstruction. Transition point noted within the descending colon. Also noted to have a small pericardial effusion. - Discussed case with general surgeon on-call, Dr. Calhoun, at 22:14. He recommended that the patient remain n.p.o. and NG to be placed. Recommended admission to medicine and bowel rest. - NGT placed in ER by nursing staff. - Discussion was had with field case manager about patient's case and need for admission - Hospitalist, Dr. Hinds, consulted for admission - [facility] ASSESSMENT AND PLAN: Diagnosis: Colonic obstruction Plan: Admit Past Med/Surg History Problem List (Updated 01/12/25 @ 22:37 by Tyrone Rao, DO) Large bowel obstruction Abdominal pain (Acute) Constipation (Acute) COVID-19 (Acute) Dysfunctional uterine bleeding (Acute) Homocysteinemia (Acute) Rectocele (Acute) Diverticulitis (Chronic 09/01/12) Acute kidney injury Metabolic acidosis Proteinuria Hematuria Medical History History of Clostridium difficile colitis Mammogram abnormal History of gastroesophageal reflux (GERD) History of endometritis Anemia Surgical History History of nasal septoplasty History of tonsillectomy History of shoulder surgery History of hysterectomy History of appendectomy Social History Smoking Status: Never smoker Tobacco Type: Cigarettes Hx Alcohol Use: No Hx Substance Use: No Preferred Language: Iraqi Feels Safe at Home: Yes Allergies Allergies Allergy/AdvReac Type Severity Reaction Status Date / Time Iodinated Contrast Media Allergy Unknown ACHY,NAUSEA Verified 12/22/20 12:02 ,WEAK Penicillins Allergy Unknown Verified 12/22/20 12:02 ciprofloxacin Allergy Anxiety Unverified 12/22/20 12:02 metronidazole AdvReac Intermediate "PHYSICALLY Verified 12/22/20 12:02 UNCOMFORTABLE" Home Meds Previous Rx's Medication Instructions Recorded dicyclomine 10 mg capsule 10 mg PO TID PRN abdominal pain 01/12/25 #15 caps ondansetron 4 mg disintegrating 4 mg PO Q8H PRN nausea and 01/12/25 tablet vomiting 5 days #15 tabs Results & Data (ED) Vital Signs Vital Signs - 24 hr 01/12/25 19:20 01/12/25 19:44 01/12/25 19:45 Temperature 36.6 C Temperature Source Temporal Artery Scan Pulse Rate 61 90 Respiratory Rate 20 Respiratory Effort / Characteristics Non-Labored Spontaneous Respiratory Depth Normal Respiratory Pattern Regular Blood Pressure 123/74 Blood Pressure Mean 90 Pulse Oximetry 97 Oxygen Delivery Method Room Air Room Air Sepsis Recent Fever Within 48 Hours No Sepsis New/Unexplained Change in Mental Status N/A Sepsis Action Taken by Nursing No Action Required Laboratory Data 01/12/25 19:50 01/12/25 19:50 Lab Results 01/12/25 Range/Units 19:50 WBC 12.40 H (4.8-10.8) K/ul RBC 4.36 (4.20-5.40) M/uL Hgb 13.0 (12.0-16.0) g/dl Hct 37.5 (37.0-47.0) % MCV 86.0 (80.0-100.0) fL MCH 29.8 (25.0-34.0) pg MCHC 34.7 (32.0-36.0) g/dL RDW Std Deviation 39.9 (36.4-46.3) fL RDW Coeff of Christopher 13.0 (11.5-14.5) % Plt Count 364 (130-400) K/uL MPV 8.6 L (9.4-12.4) fL Immature Gran % (Auto) 0.2 % Neut % (Auto) 81.3 % Lymph % (Auto) 10.6 % [place] % (Auto) 7.1 % Eos % (Auto) 0.6 % Baso % (Auto) 0.2 % Neut # (Auto) 10.07 H (1.40-6.50) K/uL Lymph # (Auto) 1.31 (1.20-3.40) K/uL [place] # (Auto) 0.88 H (0.11-0.59) K/uL Eos # (Auto) 0.08 (0.00-0.50) K/uL Baso # (Auto) 0.03 (0.00-0.20) K/uL Immature Gran # (Auto) 0.03 (0.01-0.20) K/uL Sodium 133 L (136-145) mmol/L Potassium 3.8 (3.5-5.1) mmol/L Chloride 99 (98-107) mmol/L Carbon Dioxide 25 (21-32) mmol/L Anion Gap 9 (3-11) BUN 16 (6-23) mg/dl Creatinine 0.62 (0.6-1.2) mg/dl Est Cr Clr Drug Dosing Not Reportable eGFR 100.00 BUN/Creatinine Ratio 25.8 H (10-20) Glucose 110 H (70-99(Fasting)) mg/dl Lactate 1.5 (0.4-2.0) mmol/L Calcium 9.5 (8.6-10.3) mg/dl Total Bilirubin 0.6 (0.2-1.0) mg/dl AST 40 H (13-39) U/L ALT 27 (7-52) U/L Alkaline Phosphatase 67 (34-104) U/L Total Protein 7.2 (6.0-8.3) gm/dl Albumin 4.2 (3.4-5.0) gm/dl Globulin 3.0 (2.5-4.0) gm/dl Albumin/Globulin Ratio 1.4 (0.9-2) Lipase 19 (11-82) U/L Administered Medications Discontinued Medications Diphenhydramine HCl (Diphenhydramine 50 Mg/Ml Vial) 25 mg IV NOW STA Stop: 01/12/25 20:53 Last Admin: 01/12/25 20:55 Dose: 25 mg Documented By: ANDREW Droperidol (Droperidol 5 Mg/2 Ml Vial) 2.5 mg IV ONE STA Stop: 01/12/25 19:46 Last Admin: 01/12/25 20:15 Dose: 2.5 mg Documented By: FLAVIO Ioversol (Optiray 320 100ml) 90 ml IV ONCE ONE Stop: 01/12/25 20:57 Last Admin: 01/12/25 20:58 Dose: 90 ml Documented By: KELLY Methylprednisolone (Methylprednisolone 125 Mg/2 Ml Vial) 80 mg IV NOW STA Stop: 01/12/25 20:53 Last Admin: 01/12/25 20:55 Dose: 80 mg Documented By: EMB Imaging Data Radiologist's Impression: Abdomen/Pelvis CT 01/12/25 19:44 Exam(s): CT ABDOMEN + PELVIS With Contrast IV Amt: 90 ML OPTIRAY 320 EXAM: CT Abdomen and Pelvis With Intravenous Contrast CLINICAL HISTORY: Reason for exam: diffuse abd pain; no BM or flatus. TECHNIQUE: Axial computed tomography images of the abdomen and pelvis with intravenous contrast. CTDI is 12.53 mGy and DLP is 621.85 mGy-cm. Automated exposure control was utilized for the study. A dose lowering technique was utilized adhering to the principles of ALARA. CONTRAST: Patient received 90 ML OPTIRAY 320 of IV contrast COMPARISON: CT 01/10/2025 FINDINGS: Heart: Small pericardial effusion. ABDOMEN: Liver: A few cysts in the liver largest in the caudate lobe measuring 2 cm. Gallbladder and bile ducts: Unremarkable. Pancreas: Unremarkable. Spleen: Unremarkable. Adrenals: Unremarkable. Kidneys and ureters: Unremarkable. No obstructing stones. No hydronephrosis. Stomach and bowel: Colonic obstruction. The degree of distention has increased from yesterday measuring up to 8 cm in the right hemicolon. Transition point within the descending colon. PELVIS: Appendix: No findings to suggest acute appendicitis. Bladder: Unremarkable. Reproductive: Status post hysterectomy. ABDOMEN and PELVIS: Intraperitoneal space: Unremarkable. No free air. No significant fluid collection. Bones/joints: No acute fracture. Soft tissues: Unremarkable. Vasculature: Unremarkable. Lymph nodes: Unremarkable. IMPRESSION: 1. Colonic obstruction. The degree of distention has increased from yesterday measuring up to 8 cm in the right hemicolon. Transition point within the descending colon. 2. Small pericardial effusion. Electronically signed by: Earl Haider MD 01/12/25 22:09 PM Discharge Plan Visit Data Chief Complaint: Abdominal Pain Stated Complaint: ABD PAIN ED Provider: Jackie Herbert Discharge Problem: Colonic obstruction Condition: Fair Forms Stand Alone Forms: [employer] Prescriptions Prescriptions: No Action dicyclomine 10 mg capsule 10 mg PO TID PRN (Reason: abdominal pain) Qty: 15 0RF ondansetron 4 mg tablet,disintegrating 4 mg PO Q8H PRN (Reason: nausea and vomiting) 5 Days Qty: 15 0RF Referrals Referrals: Stephani Luevano MD [Primary Care Provider] -
[2025-01-12 20:02] LABS: Basophils # (auto) 0.03 K/uL (0.00-0.20); Basophils % (auto) 0.2 %; Eosinophils # (auto) 0.08 K/uL (0.00-0.50); Eosinophils % (auto) 0.6 %; Hematocrit (blood only) 37.5 % (37.0-47.0); Immature Granulocytes # (auto) 0.03 K/uL (0.01-0.20); Immature Granulocytes % (auto) 0.2 %; Lymphocytes # (auto) 1.31 K/uL (1.20-3.40); Lymphocytes % (auto) 10.6 %; Mean Corpuscular Hemoglobin 29.8 pg (25.0-34.0); Mean Corpuscular Hgb Conc 34.7 g/dL (32.0-36.0); Mean Platelet Volume 8.6 fL (9.4-12.4); Monocytes # (auto) 0.88 K/uL (0.11-0.59); Monocytes % (auto) 7.1 %; Neutrophils # (auto) 10.07 K/uL (1.40-6.50); Neutrophils % (auto) 81.3 %; Platelet Count 364 K/uL (130-400); RDW Standard Deviation 39.9 fL (36.4-46.3); Red Blood Count 4.36 M/uL (4.20-5.40)
[2025-01-12] MEDS: DROPERIDOL 5 MG/2 ML VIAL IV STA (20:15)
[2025-01-12 20:19] LABS: Alanine Aminotransferase 27 U/L (7-52); Albumin Globulin Ratio 1.4 (0.9-2); Albumin Level 4.2 gm/dl (3.4-5.0); Alkaline Phosphatase 67 U/L (34-104); Anion Gap 9 (3-11); Aspartate Aminotransferase 40 U/L (13-39); BUN Creatinine Ratio 25.8 (10-20); Bilirubin,Total 0.6 mg/dl (0.2-1.0); Blood Urea Nitrogen 16 mg/dl (6-23); Calcium 9.5 mg/dl (8.6-10.3); Carbon Dioxide 25 mmol/L (21-32); Chloride 99 mmol/L (98-107); Glucose 110 mg/dl (70-99(Fasting)); Lipase 19 U/L (11-82); Potassium 3.8 mmol/L (3.5-5.1); Sodium 133 mmol/L (136-145); Total Protein 7.2 gm/dl (6.0-8.3)
[2025-01-12] MEDS: methylPREDNISolone 125 MG/2 ML VIAL IV STA (20:55)
[2025-01-12] MEDS: diphenhydrAMINE 50 MG/ML VIAL IV STA (20:55)
[2025-01-12] MEDS: OPTIRAY 320 100ml IV ONE (20:58)
--- NOTE | 2025-01-12 22:10 | CT Scan Report ---
Exam(s): CT ABDOMEN + PELVIS With Contrast IV Amt: 90 ML OPTIRAY 320 EXAM: CT Abdomen and Pelvis With Intravenous Contrast CLINICAL HISTORY: Reason for exam: diffuse abd pain; no BM or flatus. TECHNIQUE: Axial computed tomography images of the abdomen and pelvis with intravenous contrast. CTDI is 12.53 mGy and DLP is 621.85 mGy-cm. Automated exposure control was utilized for the study. A dose lowering technique was utilized adhering to the principles of ALARA. CONTRAST: Patient received 90 ML OPTIRAY 320 of IV contrast COMPARISON: CT 01/10/2025 FINDINGS: Heart: Small pericardial effusion. ABDOMEN: Liver: A few cysts in the liver largest in the caudate lobe measuring 2 cm. Gallbladder and bile ducts: Unremarkable. Pancreas: Unremarkable. Spleen: Unremarkable. Adrenals: Unremarkable. Kidneys and ureters: Unremarkable. No obstructing stones. No hydronephrosis. Stomach and bowel: Colonic obstruction. The degree of distention has increased from yesterday measuring up to 8 cm in the right hemicolon. Transition point within the descending colon. PELVIS: Appendix: No findings to suggest acute appendicitis. Bladder: Unremarkable. Reproductive: Status post hysterectomy. ABDOMEN and PELVIS: Intraperitoneal space: Unremarkable. No free air. No significant fluid collection. Bones/joints: No acute fracture. Soft tissues: Unremarkable. Vasculature: Unremarkable. Lymph nodes: Unremarkable. IMPRESSION: 1. Colonic obstruction. The degree of distention has increased from yesterday measuring up to 8 cm in the right hemicolon. Transition point within the descending colon. 2. Small pericardial effusion. Electronically signed by: Earl Haider MD 01/12/25 22:09 PM
--- NOTE | 2025-01-12 22:32 | History & Physical Report ---
Date of Service January 12, 2025 Assessment & Plan (1) Large bowel obstruction: Plan: Dilaudid ordered N.p.o. NG tube Surgical consult Zofran as needed nausea (2) Abdominal pain: Plan: Analgesia ordered (3) Constipation: Plan: Patient is already completed multiple enemas and has utilized mag citrate without relief of the pain or constipation Surgical consult May need GI consult She said she has had a colonoscopy in the past couple years She is status post partial colectomy with anastomosis Plan Subcu heparin ordered for VTE prophylaxis Patient is a full code A total of 65 minutes spent in care management and review of data for this patient History of Present Illness Chief Complaint: Abdominal pain Primary Care Provider: Stephani Luevano MD Elena Olmstead is a 64-year-old female with previous medical history of hypermobility syndrome, abnormal LFTs, and road genetic alopecia, diverticulitis/diverticulosis, history of herniation of rectum into vagina, migraine headaches, pericardial effusion. She presents to the ED today with abdominal pain and vomiting. This is her third visit in 24 hours. She reports that "I feel so constipated." She reports she has been taking Colace, mag citrate and has had multiple enemas at home and during her visit in the ER. She reports that she has not passed flatus or had a bowel movement in over 48 hours. She states that she is having significant abdominal pain throughout her lower abdomen. She states she has had nausea and has had dry heaving but states "I have nothing left to throw up." She denies any fevers. She has had multiple abdominal surgeries in the past including salpingo-oophorectomy, hysterectomy, partial colectomy with anastomosis, appendectomy. She initially rated her pain a 10 out of 10. She is feeling better with less pain after intervention in the ED. Surgery has been consulted. Admission, NG tube and bowel rest has been recommended. Allergies Allergy/AdvReac Type Severity Reaction Status Date / Time Iodinated Contrast Media Allergy Unknown ACHY,NAUSEA Verified 12/22/20 12:02 ,WEAK Penicillins Allergy Unknown Verified 12/22/20 12:02 ciprofloxacin Allergy Anxiety Unverified 12/22/20 12:02 metronidazole AdvReac Intermediate "PHYSICALLY Verified 12/22/20 12:02 UNCOMFORTABLE" Home Medications Medication Instructions Recorded Confirmed Type dicyclomine 10 mg capsule 10 mg PO TID PRN abdominal pain 01/12/25 Rx #15 caps ondansetron 4 mg disintegrating 4 mg PO Q8H PRN nausea and 01/12/25 Rx tablet vomiting 5 days #15 tabs Past Med/Surg History Problem List (Updated 01/12/25 @ 22:37 by Tyrone Rao DO) Large bowel obstruction Abdominal pain (Acute) Constipation (Acute) COVID-19 (Acute) Dysfunctional uterine bleeding (Acute) Homocysteinemia (Acute) Rectocele (Acute) Diverticulitis (Chronic 09/01/12) Acute kidney injury Metabolic acidosis Proteinuria Hematuria Medical History History of Clostridium difficile colitis Mammogram abnormal History of gastroesophageal reflux (GERD) History of endometritis Anemia Surgical History History of nasal septoplasty History of tonsillectomy History of shoulder surgery History of hysterectomy History of appendectomy Social History Smoking Status: Never smoker Tobacco Type: Cigarettes Hx Alcohol Use: No Hx Substance Use: No Preferred Language: [place] Feels Safe at Home: Yes Review of Systems Review of Systems: Constitutional- no fever; no weight loss Eyes- no acute visual changes ENT- no sinus drainage; no pharyngitis Pulmonary- no cough, no wheezing, no shortness of breath Cardiac- no chest pain, no palpitations, no orthopnea, no dependent edema GI-she has nausea, vomiting and severe abdominal pain, no BM or flatus - no dysuria, no hematuria Musculoskeletal- no arthralgias, no myalgias Derm- no rashes, no new skin lesions, no changing skin lesions Hematologic- no unusual bruising, no unusual bleeding Lymphatics- no adenopathy Endocrine- no polyuria or polydipsia; no heat or cold intolerance Neuro- no headaches, no focal neurologic symptoms Psych- no anxiety, no depression Physical Exam Physical Exam: General- adult female seen at bedside, she is in mild to moderate distress Head- atraumatic Eyes- PERRL, EOMI, anicteric ENT- oropharynx clear Neck- supple, no JVD, no adenopathy, no thyromegaly; carotids +2/2, no bruits appreciated Lungs- clear to auscultation and percussion Heart- regular rhythm; no murmur, no gallop, no rub appreciated Abdomen-bowel sounds not detected, diffuse tenderness but worse in the mid abdomen, no masses detected Extremities- no pretibial edema, no calf tenderness; peripheral pulses intact Neuro- alert, oriented x 3; PERRL, EOMI; no facial palsy; no dysarthria; motor 5/5 bilaterally; Skin- warm & dry Results & Data Results & Data Vital Signs (Past 12 Hours) Vital Signs Temp Pulse Resp BP Pulse Ox O2 Del Method 01/12/25 19:45 90 01/12/25 19:44 Room Air 01/12/25 19:20 36.6 C 61 20 123/74 97 Room Air Diagnostic Findings Laboratory Results WBC 12.40 K/ul (4.8-10.8) H 01/12/25 19:50 RBC 4.36 M/uL (4.20-5.40) 01/12/25 19:50 Hgb 13.0 g/dl (12.0-16.0) 01/12/25 19:50 Hct 37.5 % (37.0-47.0) 01/12/25 19:50 MCV 86.0 fL (80.0-100.0) 01/12/25 19:50 MCH 29.8 pg (25.0-34.0) 01/12/25 19:50 MCHC 34.7 g/dL (32.0-36.0) 01/12/25 19:50 RDW Std Deviation 39.9 fL (36.4-46.3) 01/12/25 19:50 RDW Coeff of Christopher 13.0 % (11.5-14.5) 01/12/25 19:50 Plt Count 364 K/uL (130-400) 01/12/25 19:50 MPV 8.6 fL (9.4-12.4) L 01/12/25 19:50 Immature Gran % (Auto) 0.2 % 01/12/25 19:50 Neut % (Auto) 81.3 % 01/12/25 19:50 Lymph % (Auto) 10.6 % 01/12/25 19:50 [place] % (Auto) 7.1 % 01/12/25 19:50 Eos % (Auto) 0.6 % 01/12/25 19:50 Baso % (Auto) 0.2 % 01/12/25 19:50 Neut # (Auto) 10.07 K/uL (1.40-6.50) H 01/12/25 19:50 Lymph # (Auto) 1.31 K/uL (1.20-3.40) 01/12/25 19:50 [place] # (Auto) 0.88 K/uL (0.11-0.59) H 01/12/25 19:50 Eos # (Auto) 0.08 K/uL (0.00-0.50) 01/12/25 19:50 Baso # (Auto) 0.03 K/uL (0.00-0.20) 01/12/25 19:50 Immature Gran # (Auto) 0.03 K/uL (0.01-0.20) 01/12/25 19:50 Sodium 133 mmol/L (136-145) L 01/12/25 19:50 Potassium 3.8 mmol/L (3.5-5.1) 01/12/25 19:50 Chloride 99 mmol/L (98-107) 01/12/25 19:50 Carbon Dioxide 25 mmol/L (21-32) 01/12/25 19:50 Anion Gap 9 (3-11) 01/12/25 19:50 BUN 16 mg/dl (6-23) 01/12/25 19:50 Creatinine 0.62 mg/dl (0.6-1.2) 01/12/25 19:50 Est Cr Clr Drug Dosing Not Reportable 01/12/25 19:50 eGFR 100.00 01/12/25 19:50 BUN/Creatinine Ratio 25.8 (10-20) H 01/12/25 19:50 Glucose 110 mg/dl (70-99(Fasting)) H 01/12/25 19:50 Lactate 1.5 mmol/L (0.4-2.0) 01/12/25 19:50 Calcium 9.5 mg/dl (8.6-10.3) 01/12/25 19:50 Total Bilirubin 0.6 mg/dl (0.2-1.0) 01/12/25 19:50 AST 40 U/L (13-39) H 01/12/25 19:50 ALT 27 U/L (7-52) 01/12/25 19:50 Alkaline Phosphatase 67 U/L (34-104) 01/12/25 19:50 Total Protein 7.2 gm/dl (6.0-8.3) 01/12/25 19:50 Albumin 4.2 gm/dl (3.4-5.0) 01/12/25 19:50 Globulin 3.0 gm/dl (2.5-4.0) 01/12/25 19:50 Albumin/Globulin Ratio 1.4 (0.9-2) 01/12/25 19:50 Lipase 19 U/L (11-82) 01/12/25 19:50 Impressions Abdomen/Pelvis CT 01/12/25 19:44 Exam(s): CT ABDOMEN + PELVIS With Contrast IV Amt: 90 ML OPTIRAY 320 EXAM: CT Abdomen and Pelvis With Intravenous Contrast CLINICAL HISTORY: Reason for exam: diffuse abd pain; no BM or flatus. TECHNIQUE: Axial computed tomography images of the abdomen and pelvis with intravenous contrast. CTDI is 12.53 mGy and DLP is 621.85 mGy-cm. Automated exposure control was utilized for the study. A dose lowering technique was utilized adhering to the principles of ALARA. CONTRAST: Patient received 90 ML OPTIRAY 320 of IV contrast COMPARISON: CT 01/10/2025 FINDINGS: Heart: Small pericardial effusion. ABDOMEN: Liver: A few cysts in the liver largest in the caudate lobe measuring 2 cm. Gallbladder and bile ducts: Unremarkable. Pancreas: Unremarkable. Spleen: Unremarkable. Adrenals: Unremarkable. Kidneys and ureters: Unremarkable. No obstructing stones. No hydronephrosis. Stomach and bowel: Colonic obstruction. The degree of distention has increased from yesterday measuring up to 8 cm in the right hemicolon. Transition point within the descending colon. PELVIS: Appendix: No findings to suggest acute appendicitis. Bladder: Unremarkable. Reproductive: Status post hysterectomy. ABDOMEN and PELVIS: Intraperitoneal space: Unremarkable. No free air. No significant fluid collection. Bones/joints: No acute fracture. Soft tissues: Unremarkable. Vasculature: Unremarkable. Lymph nodes: Unremarkable. IMPRESSION: 1. Colonic obstruction. The degree of distention has increased from yesterday measuring up to 8 cm in the right hemicolon. Transition point within the descending colon. 2. Small pericardial effusion. Electronically signed by: Earl Haider MD 01/12/25 22:09 PM ECG Additional Comments: EKG is reviewed and shows a normal sinus rhythm with no acute changes (2) Abdominal pain Abdominal location: generalized Qualified Code(s): R10.84 - Generalized abdominal pain (3) Constipation Constipation type: slow transit constipation Qualified Code(s): K59.01 - Slow transit constipation
[2025-01-13] MEDS ORDERED: ONDANSETRON INJ 2 MG/ML 2 ML VIAL IV PRN (01:18)
[2025-01-13] MEDS ORDERED: HYDROmorphone INJ 0.5 MG/0.5 ML SYR IV PRN (01:18)
--- NOTE | 2025-01-13 01:59 | XRay Report ---
EXAM: XR KUB/Abdomen 1 view CLINICAL HISTORY: NG. TECHNIQUE: X-ray images of the upper abdomen and lower chest were obtained AP projection. COMPARISON: 01/11/2025 CT was reviewed. FINDINGS: NGT is seen in place with the distal tip in the stomach. Gas Pattern: Multiple bowel loops show gaseous distention. Soft Tissues: Soft tissues of the abdomen appear normal without evidence of masses or calcifications. Blunt left costophrenic angle, could be minimal effusion or pleural thickening. IMPRESSION: 1. NGT is seen in place with the distal tip in the stomach. (interval new) 2. Multiple bowel loops show gaseous distention. 3. Blunt left costophrenic angle, could be minimal effusion or pleural thickening. Electronically signed by Rivera Gunter 01-13-2025 01:58 AM
[2025-01-13] MEDS: Patient's HEIGHT &/or WEIGHT Needed STA (03:35)
[2025-01-13 04:27] LABS: Hematocrit (blood only) 36.2 % (37.0-47.0); Hemoglobin 12.7 g/dl (12.0-16.0); Mean Corpuscular Hemoglobin 30.4 pg (25.0-34.0); Mean Corpuscular Hgb Conc 35.1 g/dL (32.0-36.0); Mean Corpuscular Volume 86.6 fL (80.0-100.0); Mean Platelet Volume 8.5 fL (9.4-12.4); Platelet Count 345 K/uL (130-400); RDW Coefficient of Variation 13.1 % (11.5-14.5); RDW Standard Deviation 40.9 fL (36.4-46.3); Red Blood Count 4.18 M/uL (4.20-5.40); White Blood Count 14.12 K/ul (4.8-10.8)
[2025-01-13 04:41] LABS: BUN Creatinine Ratio 23.4 (10-20); Calcium 8.8 mg/dl (8.6-10.3); Creatinine Clr Calc Pharmacy 90.8 ml/min; Magnesium 2.7 mg/dl (1.7-2.4); Potassium 3.8 mmol/L (3.5-5.1)
[2025-01-13] MEDS ORDERED: ACETAMINOPHEN 1,000 MG/100 ML VIAL IV PRN (05:39)
[2025-01-13] MEDS: ACETAMINOPHEN 1,000 MG/100 ML VIAL IV STA (05:53)
[2025-01-13 06:05] LABS: Appearance Urine Clear (Clear); Bacteria Urine Automated None Seen (None Seen); Bilirubin Urine Negative (Negative); Blood Urine 1+ (Negative); Cast Urine Automated 0-2 /lpf (0-2); Color Urine Yellow; Epithelial Cell Urine Auto 0-2 /hpf (0-2); Glucose Urine UA Negative (Negative); Ketones Urine 2+ (Negative); Leukocyte Esterase Urine Negative (Negative); Nitrite Urine Negative (Negative); Protein Urine Negative (Negative); Specific Gravity Urine 1.038 (1.000-1.030); Urobilinogen Urine Negative (Negative); WBC Urine Automated 0-5 /hpf (0-5); pH Urine 6.5 (4.5-7.5)
[2025-01-13] MEDS: LACTATED RINGER'S 1,000 ML IV SCH (09:11)
--- NOTE | 2025-01-13 09:17 | XRay Report ---
XR abdomen 2V w PA chest CLINICAL HISTORY: Intestinal obstruction, obstruction series COMPARISON STUDY: 01/13/2025 and 01/12/2025 FINDINGS: CHEST: Heart size and pulmonary vasculature are normal. There is stable mild stranding opacity at the left lung base. No new consolidation or pleural effusion. No pneumothorax. ABDOMEN: Nasogastric tube tip is in the proximal stomach with the sidehole at the GE junction. There is mild gaseous distention of the transverse colon and mild gaseous distention of a few right lower q uadrant small bowel loops, stable. No gross free air seen. IMPRESSION: 1. Stable mild stranding opacity left lung base. 2. Stable mild bowel distention. 3. Nasogastric tube tip is in the proximal stomach, mildly withdrawn compared to prior. ACT 112: Negative or not required by law. Electronically signed by: Tito Muller M.D. 01/13/2025 9:15 AM
[2025-01-13] MEDS: HEPARIN SOD 5,000 UNIT/0.5 ML VIAL SQ SCH (09:46)
--- NOTE | 2025-01-13 10:08 | Surgery Consultation ---
Date of Consultation January 13, 2025 Assessment & Plan (1) Large bowel obstruction: (2) Abdominal pain: (3) Constipation: 64 yo female with history of sigmoid resection and total hysterectomy and appendectomy presented to ED multiple times in last two days due to severe abdominal pain and severe constipation with no bowel function. Initial ct scan imaging showing constipation and repeat on 01/13/25 showing large bowel obstruction with transition and descending colon. ? secondary to severe constipation, stricture of prior colectomy/anastomosis site, intermittent volvulus? She just had large bowel movement and is feeling much better, minimal NGT output, lactate normal. mild leukocytosis. No acute surgical intervention. GI consulted for possible colonoscopy with decompression. Continue medical management. Discussed with Dr. gay who agrees with above. History of Present Illness Reason for Consultation: large bowel obstruction Requesting Physician: MD Jalen Attending Physician: Sukhdeep Adam MD History of Present Illness Elena is a 64 yo female with history of homocysteinemia,diverticulitis with sigmoid resection at [facility] 9 years ago who presented to ED 3 times 24 hours due to severe constipation, abdominal pain, with nausea and inability to pas gas or bowel movement with mag citrate, stool softeners. She states pain was severe at times and came in waves . Was unable to pass gas for 4 days. States she had history of laparoscopic sigmoid resection with primary anastomosis at [facility] with hysterectomy in [place] 9 years ago. No issues with chronic constipation since the surgery. Usually has multiple bowel movements daily. First CT scan o f abdomen and pelvis on 01/11/25 showed moderate amount of stool in sigmoid colon with dilatation stool filled cecum measuring 6 cm in diameter. She was discharged to ER and return on two further occurrences and was admitted last night due to repeat ct scan showing large bowel obstruction with transition point is descending colon and dilated cecum measuring 8 cm. NGT was placed with little output. She just had a large liquid bowel movement and is feeling much better. Allergies Allergy/AdvReac Type Severity Reaction Status Date / Time Iodinated Contrast Media Allergy Unknown ACHY,NAUSEA Verified 12/22/20 12:02 ,WEAK Penicillins Allergy Unknown Verified 12/22/20 12:02 ciprofloxacin Allergy Anxiety Unverified 12/22/20 12:02 metronidazole AdvReac Intermediate "PHYSICALLY Verified 12/22/20 12:02 UNCOMFORTABLE" Home Medications Medication Instructions Recorded Confirmed Type dicyclomine 10 mg capsule 10 mg PO TID PRN abdominal pain 01/12/25 Rx #15 caps ondansetron 4 mg disintegrating 4 mg PO Q8H PRN nausea and 01/12/25 Rx tablet vomiting 5 days #15 tabs Patient History Medical History History of Clostridium difficile colitis Mammogram abnormal History of gastroesophageal reflux (GERD) History of endometritis Anemia Surgical History History of nasal septoplasty History of tonsillectomy History of shoulder surgery History of hysterectomy History of appendectomy Social History Smoking Status: Former smoker Tobacco Type: Cigarettes Hx Alcohol Use: No Hx Substance Use: No Preferred Language: [place] Manager Fleet Required: No Current Living Situation: Spouse Feels Safe at Home: Yes Review of Systems Review of Systems: All systems reviewed & are unremarkable except as noted in HPI & below Physical Exam Constitutional: WD/WN, vitals as above cooperative and comfortable; no acute distress and not ill appearing Respiratory: normal respiratory effort, lungs clear to auscultation Cardiovascular: RRR, no murmur, no edema Gastrointestinal (Abdomen): Inspection/Auscultation: abdomen normal to inspection, + abdomen distended (mild in lower abdomen), normal bowel sounds and + abdominal surgical scar (laparoscopic scars) Percussion/Palpation: + abdomen tender (mild in lower abdomen on deep palpation) and abdomen soft; no guarding and abdomen not rigid NGT placed, currently on clamp. Minimal thick frothy output in NGT tubing, nothing in canister since placement Skin: no rashes, warm and dry Psychiatric: Orientation: alert and oriented x 3 Results & Data Vital Signs (Past 12 Hours) Vital Signs Temp Pulse Pulse Resp BP BP Pulse Ox 01/13/25 07:15 36.7 C 97 H 16 126/75 94 01/13/25 05:41 01/13/25 05:30 36.4 C L 109 H 18 124/62 94 01/13/25 05:00 94 H 18 130/78 96 01/13/25 03:14 36.9 C 98 H 20 136/72 97 01/13/25 02:19 Pulse Ox O2 Del Method O2 Del Method 01/13/25 07:15 Room Air 01/13/25 05:41 Room Air 01/13/25 05:30 Room Air 01/13/25 05:00 01/13/25 03:14 Room Air 01/13/25 02:19 97 Room Air Laboratory Results 01/13/25 01/13/25 01/12/25 Range/Units 05:31 04:15 19:50 WBC 14.12 H 12.40 H (4.8-10.8) K/ul RBC 4.18 L 4.36 (4.20-5.40) M/uL Hgb 12.7 13.0 (12.0-16.0) g/dl Hct 36.2 L 37.5 (37.0-47.0) % MCV 86.6 86.0 (80.0-100.0) fL MCH 30.4 29.8 (25.0-34.0) pg MCHC 35.1 34.7 (32.0-36.0) g/dL RDW Std Deviation 40.9 39.9 (36.4-46.3) fL RDW Coeff of Christopher 13.1 13.0 (11.5-14.5) % Plt Count 345 364 (130-400) K/uL MPV 8.5 L 8.6 L (9.4-12.4) fL Immature Gran % (Auto) 0.2 % Neut % (Auto) 81.3 % Lymph % (Auto) 10.6 % [place] % (Auto) 7.1 % Eos % (Auto) 0.6 % Baso % (Auto) 0.2 % Neut # (Auto) 10.07 H (1.40-6.50) K/uL Lymph # (Auto) 1.31 (1.20-3.40) K/uL [place] # (Auto) 0.88 H (0.11-0.59) K/uL Eos # (Auto) 0.08 (0.00-0.50) K/uL Baso # (Auto) 0.03 (0.00-0.20) K/uL Immature Gran # (Auto) 0.03 (0.01-0.20) K/uL Sodium 134 L 133 L (136-145) mmol/L Potassium 3.8 3.8 (3.5-5.1) mmol/L Chloride 100 99 (98-107) mmol/L Carbon Dioxide 26 25 (21-32) mmol/L Anion Gap 8 9 (3-11) BUN 15 16 (6-23) mg/dl Creatinine 0.64 0.62 (0.6-1.2) mg/dl Est Cr Clr Drug Dosing 90.8 Not Reportable eGFR 99.24 100.00 BUN/Creatinine Ratio 23.4 H 25.8 H (10-20) Glucose 153 H 110 H (70-99(Fasting)) mg/dl Lactate 1.5 (0.4-2.0) mmol/L Calcium 8.8 9.5 (8.6-10.3) mg/dl Magnesium 2.7 H (1.7-2.4) mg/dl Total Bilirubin 0.6 (0.2-1.0) mg/dl AST 40 H (13-39) U/L ALT 27 (7-52) U/L Alkaline Phosphatase 67 (34-104) U/L Total Protein 7.2 (6.0-8.3) gm/dl Albumin 4.2 (3.4-5.0) gm/dl Globulin 3.0 (2.5-4.0) gm/dl Albumin/Globulin Ratio 1.4 (0.9-2) Lipase 19 (11-82) U/L Urine Color Yellow Urine Appearance Clear (Clear) Urine pH 6.5 (4.5-7.5) Ur Specific [place] 1.038 H (1.000-1.030) Urine Protein Negative (Negative) Urine Glucose (UA) Negative (Negative) Urine Ketones 2+ H (Negative) Urine Blood 1+ H (Negative) Urine Nitrite Negative (Negative) Urine Bilirubin Negative (Negative) Urine Urobilinogen Negative (Negative) Ur Leukocyte Esterase Negative (Negative) Urine WBC (Auto) 0-5 (0-5) /hpf Urine RBC (Auto) 11-20 H (0-2) /hpf U Hyaline Cast (Auto) 0-2 (0-2) /lpf U Epithel Cells (Auto) 0-2 (0-2) /hpf Urine Bacteria (Auto) None Seen (None Seen) Urine Comment Diagnostic Findings Exam(s): CT ABDOMEN + PELVIS With Contrast IV Amt: 90 ML OPTIRAY 320 CONTRAST: Patient received 90 ML OPTIRAY 320 of IV contrast COMPARISON: CT 01/10/2025 FINDINGS: Heart: Small pericardial effusion. ABDOMEN: Liver: A few cysts in the liver largest in the caudate lobe measuring 2 cm. Gallbladder and bile ducts: Unremarkable. Pancreas: Unremarkable. Spleen: Unremarkable. Adrenals: Unremarkable. Kidneys and ureters: Unremarkable. No obstructing stones. No hydronephrosis. Stomach and bowel: Colonic obstruction. The degree of distention has increased from yesterday measuring up to 8 cm in the right hemicolon. Transition point within the descending colon. PELVIS: Appendix: No findings to suggest acute appendicitis. Bladder: Unremarkable. Reproductive: Status post hysterectomy. ABDOMEN and PELVIS: Intraperitoneal space: Unremarkable. No free air. No significant fluid collection. Bones/joints: No acute fracture. Soft tissues: Unremarkable. Vasculature: Unremarkable. Lymph nodes: Unremarkable. IMPRESSION: 1. Colonic obstruction. The degree of distention has increased from yesterday measuring up to 8 cm in the right hemicolon. Transition point within the descending colon. 2. Small pericardial effusion. 01/11/25 Exam(s): CT ABDOMEN + PELVIS Without Contrast EXAM: CT Abdomen and Pelvis Without Intravenous Contrast CLINICAL HISTORY: Reason for exam: mid abd pain, constipation, nausea. TECHNIQUE: Axial computed tomography images of the abdomen and pelvis without intravenous contrast. CTDI is 13 mGy and DLP is 624 mGy-cm. Automated exposure control was utilized for the study. A dose lowering technique was utilized adhering to the principles of ALARA. COMPARISON: 12/29/2016 FINDINGS: Lung bases: Unremarkable. No mass. No consolidation. ABDOMEN: Liver: Unremarkable. Gallbladder and bile ducts: Unremarkable. No calcified stones. No ductal dilation. Pancreas: Unremarkable. No ductal dilation. Spleen: Unremarkable. No splenomegaly. Adrenals: Unremarkable. No mass. Kidneys and ureters: The kidneys are unremarkable. No hydronephrosis or ureterolithiasis is seen. Stomach and bowel: 5.2 cm of dense stool in the splenic flexure of the colon. The colon beyond that point is completely decompressed suggesting constipation. There are also 6.4 cm of stool in the cecum which is upper normal. No acute inflammatory changes are seen involving the bowel. Staple line from previous sigmoid colon partial resection. No obstruction. No mucosal thickening. PELVIS: Appendix: No findings to suggest acute appendicitis. Bladder: Unremarkable. No stones. Reproductive: Unremarkable as visualized. ABDOMEN and PELVIS: Intraperitoneal space: The uterus is absent. No free fluid in the pelvis. No free air. Bones/joints: Mild degenerative changes in the lower lumbar spine. No acute fracture or subluxation. Soft tissues: Unremarkable. Vasculature: Unremarkable. No abdominal aortic aneurysm. Lymph nodes: Unremarkable. No enlarged lymph nodes. IMPRESSION: 1. The kidneys are unremarkable. No hydronephrosis or ureterolithiasis is seen. 2. 5.2 cm of dense stool in the splenic flexure of the colon. The colon beyond that point is completely decompressed suggesting constipation. There are also 6.4 cm of stool in the cecum which is upper normal. No acute inflammatory changes are seen involving the bowel. technique was utilized adhering to the principles of ALARA. I personally reviewed ct scan images from 01/13/25 as well as 01/11/25 and concur with above findings (2) Abdominal pain Abdominal location: generalized Qualified Code(s): R10.84 - Generalized abdominal pain (3) Constipation Constipation type: slow transit constipation Qualified Code(s): K59.01 - Slow transit constipation
--- NOTE | 2025-01-13 10:20 | Gastrointestinal Consultation ---
Date of Consultation January 13, 2025 Assessment & Plan (1) Large bowel obstruction: 64 year old female with history of hypermobility syndrome, alopecia, diverticulitis s/p partial colectomy years ago, migraine headaches, pericardial effusion and others below admitted w/ abd pain, constipation, bloating and vomiting. GI was asked to evaluate for colonic decompression. Xray this AM stable. Will discuss colonoscopy w/ decompression w/ attending. If examination is incomplete she should have an OP colonoscopy to further evaluate the anastomosis to evaluate for stricture. I spent a total of 60 minutes on the date of service in review of patient's record, and previously obtained information in person and appropriate medical visit, discussion and education of plan, with patient and/or caregiver, placing orders for tests/referral/procedures as medically necessary and documentation of pertinent clinical information in patient's medical records for their visit today. Supervising Physician Co-Signing Physician Notes History of colonic surgery 2016 complications of diverticulitis. She relates that the surgeon noted the diverticulitis was unusual was a hard fibrotic mass though was not cancer. She did quite well from her surgery up until a week ago when she started having difficulty with bowel movements. She had sensation of abdominal distention but was unable to pass gas or stool. She had a number of ER visits given mag citrate and enemas with no relief. She is admitted now with colonic distention with a transition point at the descending colon. She had an NG placed last evening for a right colon diameter of 8 cm. She has had a large bowel movement since that time she has had a few smaller bowel movements and is feeling somewhat improved her abdomen is slightly tender in the left upper quadrant though without guarding rebound no obvious mass. Flexible sigmoidoscopy colonoscopy today to evaluate source of obstruction and potential decompression. This with the procedure including bleeding and perf oration addressed informed consent obtained. History of Present Illness Reason for Consultation: large bowel obstruction, colo eval, decompression Requesting Physician: Sukhdeep Adam MD Attending Physician: Sukhdeep Adam MD History of Present Illness 64 year old female with history of hypermobility syndrome, alopecia, diverticulitis s/p partial colectomy years ago, migraine headaches, pericardial effusion and others below admitted w/ abd pain, constipation, bloating and vomiting. GI was asked to evaluate for colonic decompression. Prior to evaluation this AM she had a large BM and reports she is feeling better. Abd series 2024: . Stable mild stranding opacity left lung base. Stable mild bowel distention. Nasogastric tube tip is in the proximal stomach, mildly withdrawn compared to prior. KUB 2024: NGT is seen in place with the distal tip in the stomach. (interval new) Multiple bowel loops show gaseous distention. Blunt left costophrenic angle, could be minimal effusion or pleural thickening. CTAP 2024: Colonic obstruction. The degree of distention has increased from yesterday measuring up to 8 cm in the right hemicolon. Transition point within the descending colon. 2. Small pericardial effusion. CTAP 2024: 5.2 cm of dense stool in the splenic flexure of the colon. The colon beyond that point is completely decompressed suggesting constipation. There are also 6.4 cm of stool in the cecum which is upper normal. No acute inflammatory changes are seen involving the bowel. Allergies Allergy/AdvReac Type Severity Reaction Status Date / Time Iodinated Contrast Media Allergy Unknown ACHY,NAUSEA Verified 12/22/20 12:02 ,WEAK Penicillins Allergy Unknown Verified 12/22/20 12:02 ciprofloxacin Allergy Anxiety Unverified 12/22/20 12:02 metronidazole AdvReac Intermediate "PHYSICALLY Verified 12/22/20 12:02 UNCOMFORTABLE" Home Medications Medication Instructions Recorded Confirmed Type dicyclomine 10 mg capsule 10 mg PO TID PRN abdominal pain 01/12/25 Rx #15 caps ondansetron 4 mg disintegrating 4 mg PO Q8H PRN nausea and 01/12/25 Rx tablet vomiting 5 days #15 tabs Patient History Medical History History of Clostridium difficile colitis Mammogram abnormal History of gastroesophageal reflux (GERD) History of endometritis Anemia Surgical History History of nasal septoplasty History of tonsillectomy History of shoulder surgery History of hysterectomy History of appendectomy Social History Smoking Status: Former smoker Tobacco Type: Cigarettes Hx Alcohol Use: No Hx Substance Use: No Preferred Language: Panamanian Communication Ability: Effective Used Equipment Sales Representative Required: No Current Living Situation: Spouse Feels Safe at Home: Yes Assistive Devices: None Review of Systems Review of Systems: All other findings negative except as noted in HPI. Physical Exam Constitutional: NG to LIS Gastrointestinal (Abdomen): Inspection/Auscultation: normal bowel sounds Percussion/Palpation: + abdomen tender and abdomen soft Skin: no rashes, warm and dry Results & Data Vital Signs (Past 12 Hours) Vital Signs Temp Pulse Pulse Resp BP BP Pulse Ox 01/13/25 07:15 98.1 F 97 H 16 126/75 94 01/13/25 05:41 01/13/25 05:30 97.5 F L 109 H 18 124/62 94 01/13/25 05:00 94 H 18 130/78 96 01/13/25 03:14 98.4 F 98 H 20 136/72 97 01/13/25 02:19 Pulse Ox O2 Del Method O2 Del Method 01/13/25 07:15 Room Air 01/13/25 05:41 Room Air 01/13/25 05:30 Room Air 01/13/25 05:00 01/13/25 03:14 Room Air 01/13/25 02:19 97 Room Air Laboratory Results 01/13/25 01/13/25 01/12/25 Range/Units 05:31 04:15 19:50 WBC 14.12 H 12.40 H (4.8-10.8) K/ul RBC 4.18 L 4.36 (4.20-5.40) M/uL Hgb 12.7 13.0 (12.0-16.0) g/dl Hct 36.2 L 37.5 (37.0-47.0) % MCV 86.6 86.0 (80.0-100.0) fL MCH 30.4 29.8 (25.0-34.0) pg MCHC 35.1 34.7 (32.0-36.0) g/dL RDW Std Deviation 40.9 39.9 (36.4-46.3) fL RDW Coeff of Christopher 13.1 13.0 (11.5-14.5) % Plt Count 345 364 (130-400) K/uL MPV 8.5 L 8.6 L (9.4-12.4) fL Immature Gran % (Auto) 0.2 % Neut % (Auto) 81.3 % Lymph % (Auto) 10.6 % [place] % (Auto) 7.1 % Eos % (Auto) 0.6 % Baso % (Auto) 0.2 % Neut # (Auto) 10.07 H (1.40-6.50) K/uL Lymph # (Auto) 1.31 (1.20-3.40) K/uL [place] # (Auto) 0.88 H (0.11-0.59) K/uL Eos # (Auto) 0.08 (0.00-0.50) K/uL Baso # (Auto) 0.03 (0.00-0.20) K/uL Immature Gran # (Auto) 0.03 (0.01-0.20) K/uL Sodium 134 L 133 L (136-145) mmol/L Potassium 3.8 3.8 (3.5-5.1) mmol/L Chloride 100 99 (98-107) mmol/L Carbon Dioxide 26 25 (21-32) mmol/L Anion Gap 8 9 (3-11) BUN 15 16 (6-23) mg/dl Creatinine 0.64 0.62 (0.6-1.2) mg/dl Est Cr Clr Drug Dosing 90.8 Not Reportable eGFR 99.24 100.00 BUN/Creatinine Ratio 23.4 H 25.8 H (10-20) Glucose 153 H 110 H (70-99(Fasting)) mg/dl Lactate 1.5 (0.4-2.0) mmol/L Calcium 8.8 9.5 (8.6-10.3) mg/dl Magnesium 2.7 H (1.7-2.4) mg/dl Total Bilirubin 0.6 (0.2-1.0) mg/dl AST 40 H (13-39) U/L ALT 27 (7-52) U/L Alkaline Phosphatase 67 (34-104) U/L Total Protein 7.2 (6.0-8.3) gm/dl Albumin 4.2 (3.4-5.0) gm/dl Globulin 3.0 (2.5-4.0) gm/dl Albumin/Globulin Ratio 1.4 (0.9-2) Lipase 19 (11-82) U/L Urine Color Yellow Urine Appearance Clear (Clear) Urine pH 6.5 (4.5-7.5) Ur Specific [place] 1.038 H (1.000-1.030) Urine Protein Negative (Negative) Urine Glucose (UA) Negative (Negative) Urine Ketones 2+ H (Negative) Urine Blood 1+ H (Negative) Urine Nitrite Negative (Negative) Urine Bilirubin Negative (Negative) Urine Urobilinogen Negative (Negative) Ur Leukocyte Esterase Negative (Negative) Urine WBC (Auto) 0-5 (0-5) /hpf Urine RBC (Auto) 11-20 H (0-2) /hpf U Hyaline Cast (Auto) 0-2 (0-2) /lpf U Epithel Cells (Auto) 0-2 (0-2) /hpf Urine Bacteria (Auto) None Seen (None Seen) Urine Comment PG Care Time/CCT Total # of Minutes Spent Total Time Spent with Patient: Total time spent is greater than 50% in coordination of care (as documented) at patient's floor/unit and/or counseling patient: Coding Level of Care Code 09064 IN/OBS CONSULT LVL 4,60M Diagnoses Large bowel obstruction K56.609
[2025-01-13] MEDS ORDERED: DexMEDEtomidine HCL IV 100 MCG/ML VIAL IV ONE (11:43)
[2025-01-13] MEDS: SODIUM CHLORIDE 0.9% 500 ML IV SCH (12:11)
--- NOTE | 2025-01-13 12:27 | Anesthesiology Consultation ---
Date of Service January 13, 2025 Assessment & Plan Chart Review Chart Review: Acceptable Risk for Surgery and Patient NOT seen in Pre Admission Testing Consults Requested none ASA ASA3 Proposed Anesthesia Anesthesia Type: MAC Risk / Benefits Reviewed With: PT / POA / Parent / Guardian, Accepts Plan and Informed Consent Obtained History Surgery Operation Date: 01/13/25 16:30 Proposed Procedures p Colonoscopy Dr. Hugo Arias MD Height/Weight Height: 5 ft 8 in Weight: 70 kg Allergies Allergy/AdvReac Type Severity Reaction Status Date / Time Iodinated Contrast Media Allergy Unknown ACHY,NAUSEA Verified 12/22/20 12:02 ,WEAK Penicillins Allergy Unknown Verified 12/22/20 12:02 ciprofloxacin Allergy Anxiety Unverified 12/22/20 12:02 metronidazole AdvReac Intermediate "PHYSICALLY Verified 12/22/20 12:02 UNCOMFORTABLE" Medications Home Medications Medication Instructions Recorded Confirmed Last Taken dicyclomine 10 mg capsule 10 mg PO TID PRN abdominal pain 01/12/25 Unknown #15 caps ondansetron 4 mg disintegrating 4 mg PO Q8H PRN nausea and 01/12/25 Unknown tablet vomiting 5 days #15 tabs Active Medications Generic Name Dose Route Start Last Admin Trade Name Freq PRN Reason Stop Dose Admin Heparin Sodium (Porcine) 5,000 units 01/13/25 09:00 01/13/25 09:46 Heparin Sod 5,000 Unit/0.5 Ml Vial SQ 02/12/25 08:59 5,000 units Q12 DRAKE Administration Lactated Ringer's 1,000 mls @ 125 mls/hr 01/13/25 08:15 01/13/25 11:50 Lr IV 01/14/25 08:00 0 mls/hr .Q8H DRAKE Infusion Sodium Chloride 500 mls @ 15 mls/hr 01/13/25 07:30 01/13/25 12:11 Nss IV 01/14/25 07:29 15 mls/hr .Q24H DRAKE Administration NPO Date Last Intake of Fluids: 01/12/25 Time Last Intake of Fluids: 20:00 Date Last Intake of Solids: 01/12/25 Time Last Intake of Solids: 14:00 Past Medical History Medical History History of Clostridium difficile colitis Mammogram abnormal History of gastroesophageal reflux (GERD) History of endometritis Anemia Exercise / Class Metabolic Activity II 4-5 Yardwork/Stairs/Walk up hill Past Surgical History Surgical History History of nasal septoplasty History of tonsillectomy History of shoulder surgery History of hysterectomy History of appendectomy Past Anesthesia History No Hx of Anesthesia Complications and No Family Hx of Anesthesia Complications History of PONV No Hx of PONV and No Hx of Motion Sickness Social History Smoking Status: Former smoker Hx Alcohol Use: No Hx Substance Use: No Physical Exam Vital Signs Last Vital Signs Temp 36.3 C L 01/13/25 12:04 Pulse 84 01/13/25 12:04 Resp 16 01/13/25 12:04 BP 116/72 01/13/25 12:04 Pulse Ox 98 01/13/25 12:04 O2 Del Method Room Air 01/13/25 12:04 ENMT Mouth: no dentition abnormality Thyromental Distance: > or= 3.5 Finger Breadths Mallampati Class: II NG Tube in place Neck normal visual inspection Respiratory normal respiratory effort Auscultation: lungs clear to auscultation bilaterally Cardiovascular Rate/Rhythm: regular rate and regular rhythm Psychiatric Orientation: alert Testing Laboratory Results 01/13/25 04:15 01/13/25 04:15 Urine Color Yellow 01/13/25 05:31 Urine Appearance Clear (Clear) 01/13/25 05:31 Urine pH 6.5 (4.5-7.5) 01/13/25 05:31 Ur Specific [place] 1.038 (1.000-1.030) H 01/13/25 05:31 Urine Protein Negative (Negative) 01/13/25 05:31 Urine Glucose (UA) Negative (Negative) 01/13/25 05:31 Urine Ketones 2+ (Negative) H 01/13/25 05:31 Urine Nitrite Negative (Negative) 01/13/25 05:31 Ur Leukocyte Esterase Negative (Negative) 01/13/25 05:31 Urine WBC (Auto) 0-5 /hpf (0-5) 01/13/25 05:31 Urine RBC (Auto) 11-20 /hpf (0-2) H 01/13/25 05:31 U Hyaline Cast (Auto) 0-2 /lpf (0-2) 01/13/25 05:31 U Epithel Cells (Auto) 0-2 /hpf (0-2) 01/13/25 05:31 Urine Bacteria (Auto) None Seen (None Seen) 01/13/25 05:31
--- NOTE | 2025-01-13 13:15 | GI REPORT ---
[facility] Patient: MARCUS PEREZ : 1960 Sex at : Female Age: 64 Years Procedure: Colonoscopy Date: 01/13/2025 Attending Physician: Rafa Arias MD Referring MD: Sukhdeep Adam MD Indications: - Bowel obstruction, transition point descending colon, for evaluation and decompression Medications: - Monitored Anesthesia Care Complications: - No immediate complications. Estimated Blood Loss: - Estimated blood loss was minimal. Procedure: - The adult colonoscope was introduced through the anus and advanced to the cecum, identified by the ileocecal valve. - The colonoscopy was performed without difficulty. - The quality of the bowel preparation was fair except the cecum was poor. Findings: - The perianal examination was normal. - The mucosa vascular pattern in the sigmoid colon was diffusely decreased. Biopsies were taken with a cold forceps for histology. - Discontinuous areas of bleeding ulcerated mucosa were present in the descending colon. Biopsies were taken with a cold forceps for histology. Estimated blood loss was minimal. - Multiple ulcers were found in the transverse colon and in the ascending colon. No bleeding was present. Biopsies were taken with a cold forceps for histology. Estimated blood loss was minimal. - Ileum could not be entered due to large amount of fecal material occupying the cecum obscuring the lumen of the IC valve Impression: - Ileum could not be entered due to large amount of fecal material occupying the cecum obscuring the lumen of the IC valve - Decreased mucosa vascular pattern in the sigmoid colon. Biopsied. - Mucosal ulceration in the descending colon. Biopsied. - Multiple ulcers in the transverse colon and in the ascending colon. Biopsied. - Featureless left colon with skip areas of ulceration, descending, transverse and ascending colon. Most consistent with Crohn's colitis. Review of her previous 2016 CT scan suggested nonspecific colitis at that time. She had had a resection also which she describes the report is unusual as it was a fibrotic mass. My suspicion is this patient has had underlying inflammatory bowel disease Crohn's colitis types for years. She has now developed relatively narrowing of the descending colon and developed an impaction above this. At this point await biopsies rule out CMV. Rule out potential ischemia though the skip areas make this less probable. MiraLAX to prevent obstruction above the narrowed area. I believe her NG can be removed. Clear liquid diet for now. Recommendation: - Await pathology. MiraLAX daily. - Clear liquids. Procedure Code(s): - 43502, Colonoscopy, flexible; with biopsy, single or multiple Diagnosis Code(s): - K63.3, Ulcer of intestine CPT(R) - 2022 copyright [employer]. All Rights Reserved. The CPT codes, CCI edits and ICD codes generated are intended as suggestions and were generated based on input data. These codes are preliminary and upon data coder operator review may be revised to meet current compliance and payer requirements. The provider is responsible for the final determination of appropriate codes, and modifiers. Rafa Arias MD This document has been electronically signed. Note Initiated:01/13/2025 Note Completed:01/13/2025 1:15 PM \\[email or web address]\[email or web address]\[id number]
--- NOTE | 2025-01-13 13:52 | Hospitalist Progress Note ---
Date of Service January 13, 2025 Assessment & Plan (1) Large bowel obstruction: (2) Abdominal pain: (3) Constipation: Plan 64 year old female with PMH significant for androgenetic alopecia, subclinical hypothyroidism, history of bulimia, history of alcohol abuse, chronic pericard ial effusion, history of diverticulitis s/p partial colectomy (2017), hypermobility syndrome, and history of migraines who presented to the ED on 01/13/2025 with abdominal pain and constipation and is admitted for a large bowel obstruction. Large bowel obstruction Admitting CT abdomen revealed colonic obstruction up to 8cm in right hemicolon X-ray this morning was stable Patient with improved abdominal pain and having bowel movements Surgery consulted and advise no acute surgical intervention GI consulted and proceeded with colonoscopy: -Decreased mucosa vascular pattern in sigmoid colon - biopsied -Mucosal ulceration in descending colon - biopsied -Multiple ulcers in transverse colon and ascending colon - biopsied -Left colon with skip areas of ulceration, descending, transverse, and ascending colon most consistent with Crohn's colitis -Recommendations: await biopsies, miralax daily, remove NGT, clear liquid diet Small pericardial effusion Appreciated on CT abdomen Follows with [facility] last seen 12/24/2024 This is a chronic pericardial effusion that is stable per Cards Gets yearly echocardiograms Androgenetic alopecia s/p hair transplant Takes finasteride at home per patient DVT Prophylaxis: SQ heparin Code Status: FULL CODE PCP: Stephani Luevano MD Disposition: likely dc tomorrow Patient seen in collaboration with Dr Adam. Please see addendum. I spent a total of 60 minutes coordinating, documenting and providing care for this patient excluding time spent in the performance of separately billed services or time spent by another provider/QHP. Admission and Anticipated Discharge Date Admission Date: January 12, 2025 Supervising Physician Co-Signing Physician Notes Patient seen and examined at bedside. Patient doing much better today, had 2 large bowel movements this morning. No nausea or vomiting. On exam, trace tenderness in epigastric region, otherwise unremarkable. Appreciate GI team assistance, per report patient has likely Crohns disease as cause of SBO. Will remove NG tube and trial diet given bowel movements and symptom improvements. Anticipate discharge tomorrow pending toleration of diet, will need GI follow up for Crohns outpatient treatment. I have seen and discussed the case with the collaborating advanced practitioner. I agree with the above H&P. I have reviewed and confirmed the patients medical history, the findings on physical examination, and the patients diagnosis and treatment plan with Larissa DUNBAR and agree with the information documented. I spent a total of 20 minutes coordinating, documenting, and providing care for this patient excluding time spent in the performance of separately billed services. All of the aforementioned completed outside of collaborating with the assigned advanced practitioner for a full treatment plan. I have reviewed the advanced practitioner's documentation, and I agree with, and take responsibility for the plan of care Subjective Patient seen sitting in bed Reports she has had two bowel movements Abdominal pain is improved Slight nausea but has NGT in place Denies headaches, dizziness, chest pain, SOB, weakness Review of Systems Review of Systems: All systems reviewed & are unremarkable except as noted in Subjective Physical Exam Physical Exam: General/Psych: WD/WN, sitting up in bed, NAD, conversing easily, euthymic affect Head: normocephalic, atraumatic Eyes: normal inspection, PERRL, conjunctivae pink, anicteric sclerae ENT: external ear and nose normal, oropharynx normal, NGT in place Neck: normal visual inspection, trachea midline Respiratory: normal respiratory effort, lungs clear to auscultation, no wheeze/rales/rhonchi, no accessory muscle use Cardiovascular: regular rate and rhythm, no murmur/rub/gallop, no JVD Extremities: no cyanosis or clubbing, normal peripheral pulses, no BLE edema Abdomen/GI: normal bowel sounds, soft, tender on palpation, no hepatosplenomegaly Neurologic/MSK: A+Ox3, motor strength 5/5, moves all extremities Skin: no rashes, normal color, warm and dry Results & Data Results & Data Vital Signs (Past 12 Hours) Vital Signs Temp Pulse Pulse Resp BP BP Pulse Ox 01/13/25 13:18 79 16 87/49 L 94 01/13/25 13:03 77 16 84/45 L 94 01/13/25 12:04 36.3 C L 84 16 116/72 98 01/13/25 07:15 36.7 C 97 H 16 126/75 94 01/13/25 05:41 01/13/25 05:30 36.4 C L 109 H 18 124/62 94 01/13/25 05:00 94 H 18 130/78 96 01/13/25 03:14 36.9 C 98 H 20 136/72 97 01/13/25 02:19 Pulse Ox O2 Del Method O2 Del Method 01/13/25 13:18 Room Air 01/13/25 13:03 Room Air 01/13/25 12:04 Room Air 01/13/25 07:15 Room Air 01/13/25 05:41 Room Air 01/13/25 05:30 Room Air 01/13/25 05:00 01/13/25 03:14 Room Air 01/13/25 02:19 97 Room Air Laboratory Results Short CBC 01/12/25 01/13/25 Range/Units 19:50 04:15 WBC 12.40 H 14.12 H (4.8-10.8) K/ul Hgb 13.0 12.7 (12.0-16.0) g/dl Hct 37.5 36.2 L (37.0-47.0) % Plt Count 364 345 (130-400) K/uL BMP 01/12/25 01/13/25 19:50 04:15 Sodium 133 L 134 L Potassium 3.8 3.8 Chloride 99 100 Carbon Dioxide 25 26 BUN 16 15 Creatinine 0.62 0.64 Glucose 110 H 153 H Calcium 9.5 8.8 Liver Function 01/12/25 Range/Units 19:50 Total Bilirubin 0.6 (0.2-1.0) mg/dl AST 40 H (13-39) U/L ALT 27 (7-52) U/L Alkaline Phosphatase 67 (34-104) U/L Albumin 4.2 (3.4-5.0) gm/dl Urine 01/13/25 Range/Units 05:31 Urine Color Yellow Urine Appearance Clear (Clear) Urine pH 6.5 (4.5-7.5) Ur Specific [place] 1.038 H (1.000-1.030) Urine Protein Negative (Negative) Urine Glucose (UA) Negative (Negative) I have independently reviewed and interpreted patient's admitting labs including CBC and BMP. Diagnostic Findings KUB X-Ray 01/13/25 01:16 EXAM: XR KUB/Abdomen 1 view CLINICAL HISTORY: NG. TECHNIQUE: X-ray images of the upper abdomen and lower chest were obtained AP projection. COMPARISON: 01/11/2025 CT was reviewed. FINDINGS: NGT is seen in place with the distal tip in the stomach. Gas Pattern: Multiple bowel loops show gaseous distention. Soft Tissues: Soft tissues of the abdomen appear normal without evidence of masses or calcifications. Blunt left costophrenic angle, could be minimal effusion or pleural thickening. IMPRESSION: 1. NGT is seen in place with the distal tip in the stomach. (interval new) 2. Multiple bowel loops show gaseous distention. 3. Blunt left costophrenic angle, could be minimal effusion or pleural thickening. Electronically signed by Rivera Gunter 01-13-2025 01:58 AM Chest/Abdomen X-ray 01/13/25 08:00 XR abdomen 2V w PA chest CLINICAL HISTORY: Intestinal obstruction, obstruction series COMPARISON STUDY: 01/13/2025 and 01/12/2025 FINDINGS: CHEST: Heart size and pulmonary vasculature are normal. There is stable mild stranding opacity at the left lung base. No new consolidation or pleural effusion. No pneumothorax. ABDOMEN: Nasogastric tube tip is in the proximal stomach with the sidehole at the GE junction. There is mild gaseous distention of the transverse colon and mild gaseous distention of a few right lower quadrant small bowel loops, stable. No gross free air seen. IMPRESSION: 1. Stable mild stranding opacity left lung base. 2. Stable mild bowel distention. 3. Nasogastric tube tip is in the proximal stomach, mildly withdrawn compared to prior. ACT 112: Negative or not required by law. Electronically signed by: Tito Muller M.D. 01/13/2025 9:15 AM Medications Administered Current Inpatient Medications Heparin Sodium (Porcine) (Heparin Sod 5,000 Unit/0.5 Ml Vial) 5,000 units SQ Q12 DRAKE Stop: 02/12/25 08:59 Last Admin: 01/13/25 09:46 Dose: 5,000 units Acetaminophen (Ofirmev) 1,000 mg in 100 mls @ 400 mls/hr IV Q8H PRN PRN Reason: pain/fever Stop: 01/16/25 05:38 Lactated Ringer's (Lr) 1,000 mls @ 125 mls/hr IV .Q8H DRAKE Stop: 01/14/25 08:00 Last Infusion: 01/13/25 11:50 Dose: 0 mls/hr Sodium Chloride (Nss) 500 mls @ 15 mls/hr IV .Q24H DRAKE Stop: 01/14/25 07:29 Last Admin: 01/13/25 12:11 Dose: 15 mls/hr Ondansetron HCl (Ondansetron Inj 2 Mg/Ml 2 Ml Vial) 4 mg IV Q6H PRN PRN Reason: Nausea Stop: 02/12/25 01:17 Polyethylene Glycol (Polyethylene (Miralax) 17 Gm Pack) 17 gm PO DAILY DRAKE Stop: 02/12/25 13:29 (2) Abdominal pain Abdominal location: generalized Qualified Code(s): R10.84 - Generalized abdominal pain (3) Constipation Constipation type: slow transit constipation Qualified Code(s): K59.01 - Slow transit constipation
[2025-01-13] MEDS: POLYETHYLENE (MIRALAX) 17 GM PACK PO SCH (14:09)
[2025-01-13] MEDS: PHENYLEPHRINE 100MCG/ML 5ML SYR ONE (14:09)
[2025-01-13] MEDS: MIDAZOLAM HCL 1 MG/ML 2ML VIAL ONE (14:09)
--- NOTE | 2025-01-13 15:31 | Anesthesiology Progress Note ---
Date of Service January 13, 2025 Anesthesia Post Procedure Vital Signs Vital Signs: Temp Pulse Pulse Resp BP BP Pulse Ox 01/13/25 15:14 36.3 C L 83 18 102/62 97 01/13/25 14:30 36.3 C L 81 18 107/58 L 97 01/13/25 14:02 36.3 C L 75 18 109/68 97 01/13/25 13:33 75 16 96/59 L 95 01/13/25 13:18 79 16 87/49 L 94 01/13/25 13:03 77 16 84/45 L 94 01/13/25 12:04 36.3 C L 84 16 116/72 98 01/13/25 07:15 36.7 C 97 H 16 126/75 94 01/13/25 05:41 01/13/25 05:30 36.4 C L 109 H 18 124/62 94 01/13/25 05:00 94 H 18 130/78 96 01/13/25 03:14 36.9 C 98 H 20 136/72 97 01/13/25 02:19 01/12/25 19:45 90 01/12/25 19:44 01/12/25 19:20 36.6 C 61 20 123/74 97 Pulse Ox O2 Del Method O2 Del Method 01/13/25 15:14 Room Air 01/13/25 14:30 Room Air 01/13/25 14:02 Room Air 01/13/25 13:33 Room Air 01/13/25 13:18 Room Air 01/13/25 13:03 Room Air 01/13/25 12:04 Room Air 01/13/25 07:15 Room Air 01/13/25 05:41 Room Air 01/13/25 05:30 Room Air 01/13/25 05:00 01/13/25 03:14 Room Air 01/13/25 02:19 97 Room Air 01/12/25 19:45 01/12/25 19:44 Room Air 01/12/25 19:20 Room Air Pain Intensity Lower Back: Pain Intensity: 5 Upper Abdomen: Pain Intensity: 2 Transfer of Care Handoff Completed per policy Notes Mental Status: alert / awake / arousable Patient Amnestic to Procedure: Yes Nausea / Vomiting: adequately controlled Pain: adequately controlled Airway Patency, RR, SpO2: stable & adequate BP & HR: stable & adequate Hydration State: stable & adequate Anesthetic Complications: no major complications apparent
[2025-01-13 18:16] LABS: Hep B Surface Ag with confirm Negative (Negative)
[2025-01-13 18:22] LABS: Hep C Ab Rflx HepCQuant RNA Negative (Negative)
[2025-01-13 18:25] LABS: Hepatitis B Surface Ab Quant < 3.00 mIU/mL (>or=10mIU/mL Immune); Hepatitis B Surface Antibody Non-Immune
[2025-01-14 05:58] LABS: Hematocrit (blood only) 29.8 % (37.0-47.0); Hemoglobin 10.1 g/dl (12.0-16.0); Mean Corpuscular Hemoglobin 30.1 pg (25.0-34.0); Mean Corpuscular Hgb Conc 33.9 g/dL (32.0-36.0); Mean Platelet Volume 8.7 fL (9.4-12.4); Platelet Count 288 K/uL (130-400); RDW Coefficient of Variation 13.1 % (11.5-14.5); RDW Standard Deviation 42.5 fL (36.4-46.3); Red Blood Count 3.35 M/uL (4.20-5.40); White Blood Count 10.05 K/ul (4.8-10.8)
[2025-01-14 06:13] LABS: BUN Creatinine Ratio 16.7 (10-20); Calcium 8.4 mg/dl (8.6-10.3); Creatinine Clr Calc Pharmacy 96.8 ml/min; Phosphorus 2.6 mg/dl (2.5-4.9); Potassium 3.9 mmol/L (3.5-5.1)
--- NOTE | 2025-01-14 09:28 | Surgery Progress Note ---
Date of Service January 14, 2025 Assessment & Plan (1) Large bowel obstruction: (2) Abdominal pain: (3) Constipation: Plan: 64 yo female with history of sigmoid resection and total hysterectomy and appendectomy presented to ED multiple times in last two days due to severe abdominal pain and severe constipation with no bowel function. Initial ct scan imaging showing constipation and repeat on 01/13/25 showing large bowel obstruction with transition at descending colon. ? secondary to severe constipation, stricture of prior colectomy/anastomosis site, intermittent volvulus? 01/14/25 avss leukocytosis resolved colonoscopy 01/13/25 showing skip ulcerations of descending, transverse and ascending colon consistent with crohn's colitis, relative luminal narrowing at descending colon. Plan: No acute surgical intervention required diet advanced per GI ambulate to increase GI motility our services signing off, call with questions/concerns Discussed with Dr. gay who agrees with above. Admission and Anticipated Discharge Date Admission Date: January 12, 2025 Subjective feeling bloated, abdominal discomfort due to bloating but no pain passing a little bit of gas tolerated clears Has felt bloated for 8 months looking back colonoscopy with evidence of possible crohn's , biopsy pending, no severe stricture Physical Exam Constitutional: WD/WN, vitals as above cooperative and comfortable; no acute distress and not ill appearing Gastrointestinal (Abdomen): Inspection/Auscultation: abdomen normal to inspection, + abdomen distended (mild distention), normal bowel sounds and + abdominal surgical scar (laparoscopy scar, abdominoplasty scar) Percussion/Palpation: + abdomen tender (generalized) and abdomen soft; no guarding, abdomen not rigid and abdomen not firm Skin: no rashes, warm and dry Psychiatric: Orientation: alert and oriented x 3 Results & Data Vital Signs (Past 12 Hours) Vital Signs Temp Pulse Pulse Resp BP Pulse Ox O2 Del Method 01/14/25 07:39 36.5 C 80 16 116/56 L 95 Room Air 01/14/25 03:04 36.7 C 87 16 104/67 94 Room Air 01/13/25 23:34 73 16 115/71 97 Room Air 01/13/25 23:08 36.6 C 80 16 106/66 95 Room Air Laboratory Results 01/14/25 01/13/25 01/13/25 Range/Units 05:30 20:18 16:53 WBC 10.05 (4.8-10.8) K/ul RBC 3.35 L (4.20-5.40) M/uL Hgb 10.1 L (12.0-16.0) g/dl Hct 29.8 L (37.0-47.0) % MCV 89.0 (80.0-100.0) fL MCH 30.1 (25.0-34.0) pg MCHC 33.9 (32.0-36.0) g/dL RDW Std Deviation 42.5 (36.4-46.3) fL RDW Coeff of Christopher 13.1 (11.5-14.5) % Plt Count 288 (130-400) K/uL MPV 8.7 L (9.4-12.4) fL Sodium 136 (136-145) mmol/L Potassium 3.9 (3.5-5.1) mmol/L Chloride 104 (98-107) mmol/L Carbon Dioxide 27 (21-32) mmol/L Anion Gap 5 (3-11) BUN 10 (6-23) mg/dl Creatinine 0.60 (0.6-1.2) mg/dl Est Cr Clr Drug Dosing 96.8 ml/min eGFR 100.80 BUN/Creatinine Ratio 16.7 (10-20) Glucose 88 (70-99(Fasting)) mg/dl Calcium 8.4 L (8.6-10.3) mg/dl Phosphorus 2.6 (2.5-4.9) mg/dl Magnesium 2.0 (1.7-2.4) mg/dl Stool Calprotectin Pending Hepatitis A IgM Ab Pending Hep Bs Antigen Negative (Negative) Hep Bs Antibody Non-Immune Hep Bs Antibody, Quant < 3.00 (>or=10mIU/mL Immune) mIU/mL Hep B Core IgM Ab Pending Hepatitis C Antibody Negative (Negative) TB Test (QFT) Nil Pending TB Test (QFT) Mitogen Pending TB Test (QFT) Ag 1 Pending TB Test (QFT) Ag 2 Pending (2) Abdominal pain Abdominal location: generalized Qualified Code(s): R10.84 - Generalized abdominal pain (3) Constipation Constipation type: slow transit constipation Qualified Code(s): K59.01 - Slow transit constipation
--- NOTE | 2025-01-14 09:37 | Gastroenterology Progress Note ---
Date of Service January 14, 2025 Assessment & Plan (1) Large bowel obstruction: Plan: 64 year old female with history of hypermobility syndrome, alopecia, diverticulitis s/p partial colectomy years ago, migraine headaches, pericardial effusion and others below admitted w/ abd pain, constipation, bloating and vomiting. GI was asked to evaluate for colonic decompression. S/P colonoscopy w/ skip ulcerations of descending, transverse and ascending colon and relatively narrowing of the descending colon concerning for Crohn's - Follow pathology - Follow stool calprotectin - Follow quant gold/hepatitis panel - Low residue diet as tolerated - Miralax 1 capful 1-2 times daily - Needs OP GI follow up I spent a total of 40 minutes on the date of service in review of patient's record, and previously obtained information in person and appropriate medical visit, discussion and education of plan, with patient and/or caregiver, placing orders for tests/referral/procedures as medically necessary and documentation of pertinent clinical information in patient's medical records for their visit today. Admission and Anticipated Discharge Date Admission Date: January 12, 2025 Supervising Physician Co-Signing Physician Notes NG out. Continues complain of some abdominal distention. Biopsies of the colon pending. Unfortunately due to inadequate prep the IC valve could not be identified and/or intubated. We have not excluded concomitant small bowel Crohn's disease. I think be reasonable to start her on some oral budesonide pending biopsies. She will need a full colonoscopy at some point with terminal ileum intubation when she can tolerate a full colon prep. We will proceed with workup for maintenance therapy with immunomodulators therapy for IBD. She states she has a bellybutton surgery scheduled for a month from now have recommended that she delay this until her full extent of her disease and m anagement with improvement has occurred. Patient agreeable. Start oral budesonide 9 mg. Subjective Feels bloated/distended. Denies abd pain. NG removed. No further nausea/vomiting. Passing small amounts of stool. No black or bloody stool reported. Stool calprotectin: pending Pathology 2024: pending Colonoscopy 2024: Ileum could not be entered due to large amount of fecal material occupying the cecum obscuring the lumen of the IC valve - Decreased mucosa vascular pattern in the sigmoid colon. Biopsied. - Mucosal ulceration in the descending colon. Biopsied. - Multiple ulcers in the transverse colon and in the ascending colon. Biopsied. - Featureless left colon with skip areas of ulceration, descending, transverse and ascending colon. Most consistent with Crohn's colitis. Review of her previous 2016 CT scan suggested nonspecific colitis at that time. She had had a resection also which she describes the report is unusual as it was a fibrotic mass. My suspicion is this patient has had underlying inflammatory bowel disease Crohn's colitis types for years. She has now developed relatively narrowing of the descending colon and developed an impaction above this. At this point await biopsies rule out CMV. Rule out potential ischemia though the skip areas make this less probable. MiraLAX to prevent obstruction above the narrowed area. I believe her NG can be removed. Clear liquid diet for now. Review of Systems Review of Systems: All other findings negative except as noted in HPI. Physical Exam Respiratory: normal respiratory effort, lungs clear to auscultation Cardiovascular: RRR, no murmur, no edema Gastrointestinal (Abdomen): + distended, bowel sounds normal Skin: no rashes, warm and dry Results & Data Results & Data Vital Signs (Past 12 Hours) Vital Signs Temp Pulse Pulse Resp BP Pulse Ox O2 Del Method 01/14/25 07:39 97.7 F 80 16 116/56 L 95 Room Air 01/14/25 03:04 98.1 F 87 16 104/67 94 Room Air 01/13/25 23:34 73 16 115/71 97 Room Air 01/13/25 23:08 97.9 F 80 16 106/66 95 Room Air Laboratory Results 01/14/25 01/13/25 01/13/25 Range/Units 05:30 20:18 16:53 WBC 10.05 (4.8-10.8) K/ul RBC 3.35 L (4.20-5.40) M/uL Hgb 10.1 L (12.0-16.0) g/dl Hct 29.8 L (37.0-47.0) % MCV 89.0 (80.0-100.0) fL MCH 30.1 (25.0-34.0) pg MCHC 33.9 (32.0-36.0) g/dL RDW Std Deviation 42.5 (36.4-46.3) fL RDW Coeff of Christopher 13.1 (11.5-14.5) % Plt Count 288 (130-400) K/uL MPV 8.7 L (9.4-12.4) fL Sodium 136 (136-145) mmol/L Potassium 3.9 (3.5-5.1) mmol/L Chloride 104 (98-107) mmol/L Carbon Dioxide 27 (21-32) mmol/L Anion Gap 5 (3-11) BUN 10 (6-23) mg/dl Creatinine 0.60 (0.6-1.2) mg/dl Est Cr Clr Drug Dosing 96.8 ml/min eGFR 100.80 BUN/Creatinine Ratio 16.7 (10-20) Glucose 88 (70-99(Fasting)) mg/dl Calcium 8.4 L (8.6-10.3) mg/dl Phosphorus 2.6 (2.5-4.9) mg/dl Magnesium 2.0 (1.7-2.4) mg/dl Stool Calprotectin Pending Hepatitis A IgM Ab Pending Hep Bs Antigen Negative (Negative) Hep Bs Antibody Non-Immune Hep Bs Antibody, Quant < 3.00 (>or=10mIU/mL Immune) mIU/mL Hep B Core IgM Ab Pending Hepatitis C Antibody Negative (Negative) TB Test (QFT) Nil Pending TB Test (QFT) Mitogen Pending TB Test (QFT) Ag 1 Pending TB Test (QFT) Ag 2 Pending PG Care Time/CCT Total # of Minutes Spent Total Time Spent with Patient: Total time spent is greater than 50% in coordination of care (as documented) at patient's floor/unit and/or counseling patient: Coding Level of Care Code 06313 SUB INP/OBS CARE 08/22MIN Diagnoses Large bowel obstruction K56.609
[2025-01-14 11:11] LABS: Quantiferon Nil 0.007 IU/mL; Quantiferon TB1 0.012 IU/mL; Quantiferon TB2 0.024 IU/mL
--- NOTE | 2025-01-14 11:40 | Hospitalist Progress Note ---
Date of Service January 14, 2025 Assessment & Plan (1) Large bowel obstruction: (2) Chronic pericardial effusion: (3) Androgenic alopecia: Plan Patient is a 64-year-old female with past medical history significant for androgenetic alopecia, subclinical hypothyroidism, history of bulimia, history of alcohol abuse, chronic pericardial effusion, history of diverticulitis s/p partial colectomy (2017), hypermobility syndrome and history of migraines who presented to the ED on 01/13/2025 with abdominal pain/constipation and was found to have a large bowel obstruction. #Large bowel obstruction Admitting CTAP w/ colonic obstruction w/ transition point w/in descending colon Gen surg consulted --> no surgical intervention/signed off Initially requiring NG tube; removed on 01/13 GI consulted and proceeded w/ colonscopy on 01/13 w/ following findings: -Decreased mucosa vascular pattern in sigmoid colon -- biopsied -Mucosal ulceration in descending colon -- biopsied -Multiple ulcers in transverse colon and ascending colon -- biopsied -Left colon with skip areas of ulceration, descending, transverse, and ascending colon most consistent with Crohn's colitis Follow pathology, fecal calprotectin, TB testing, hepatitis panel Tolerating clear liquid diet well Transition to low residue/low fiber as tolerated Continue MiraLAX daily Needs o/p GI f/u --> pt would like to continuing f/w [facility] #Chronic pericardial effusion Appreciated on CTAP Follows with [employer] [facility], last seen 12/24/24 Remains stable --> gets yearly TTEs #Androgenetic alopecia S/p hair transplantation --> can remove sutures today --> communicated w/ RN Takes finasteride at home per pt #Anemia Hgb 12.7 on 01/13 --> down to 10.1 today but remains stable overall No s/sx of bleeding Check iron panel, vit B12, folate DVT Prophylaxis: SQ Heparin PCP: Stephani Luevano MD Disposition: Discussed w/ pt --> would prefer to stay another night to see if she tolerates low fiber diet; reasonable option. Hopeful d/c home tomorrow. Patient seen in collaboration with Dr. Adam. Please see addendum. I spent a total of 40 minutes coordinating, documenting, and providing care for this patient excluding time spent in the performance of separately billed services or time spent by another provider/QHP. This included personally reviewing all current laboratories and imaging studies, medical reconciliation, outpatient chart review and discussion with specialists. This chart was completed in part utilizing Speech Voice Recognition Software. Grammatical errors, random word insertions, pronoun errors, and incomplete sentences are an occasional consequence of this system due to software limitations, ambient noise, and hardware issues. Any formal questions or concerns about the content, text, or information contained within the body of this dictation should be directly addressed to the provider for clarification. Admission and Anticipated Discharge Date Admission Date: January 12, 2025 Supervising Physician Co-Signing Physician Notes Patient seen and examined at bedside. Patient doing well today, anxious about new diagnosis and going home. On exam, trace tenderness to palpation diffusely, less distended than yesterday. Discussed new likely diagnosis of Crohns disease, the pathophysiology and potential treatments in the outpatient setting with patient, who appreciated the update and conversation. Will advanced diet today, patient anxious about going home, medically stable for discharge at this time pending tolerating diet. I have seen and discussed the case with the collaborating advanced practitioner. I agree with the above H&P. I have reviewed and confirmed the patients medical history, the findings on physical examination, and the patients diagnosis and treatment plan with Aziza HARVEY and agree with the information documented. I spent a total of 30 minutes coordinating, documenting, and providing care for this patient excluding time spent in the performance of separately billed services. All of the aforementioned completed outside of collaborating with the assigned advanced practitioner for a full treatment plan. I have reviewed the advanced practitioner's documentation, and I agree with, and take responsibility for the plan of care Subjective Patient seen and examined in W354-2. Endorses some abdominal distention and bloating but denies any abdominal pain or further N/V. NG tube has been removed. Tolerating clear liquid diet. Reports passing small amounts of loose stool. No black or bloody stool reported. Review of Systems Review of Systems: At least ten systems reviewed and negative, except as noted in the subjective section. Physical Exam Physical Exam: General: Thin F. NAD. Sitting up in bed, pleasant, conversing appropriately. A+Ox3. HEENT: Normocephalic. + evidence of hair transplant, alopecia. External ear and nose normal, oropharynx moist. Respiratory: Normal respiratory effort, lungs clear to auscultation bilaterally. No accessory muscle use. Cardiovascular: Regular rate, rhythm, normal peripheral pulses, no BLE edema. Abdomen/GI: Active bowel sounds, soft but distended. Nontender to palpation in all quadrants. Extremities/MSK: No cyanosis or clubbing, extremities motor strength intact, moves all extremities. Neurologic: No overt focal deficits, CN's II-XI not formally tested but appear grossly intact bilaterally. Results & Data Results & Data Vital Signs (Past 12 Hours) Vital Signs Temp Pulse Pulse Resp BP Pulse Ox O2 Del Method 01/14/25 07:39 36.5 C 80 16 116/56 L 95 Room Air 01/14/25 03:04 36.7 C 87 16 104/67 94 Room Air Laboratory Results Short CBC 01/14/25 Range/Units 05:30 WBC 10.05 (4.8-10.8) K/ul Hgb 10.1 L (12.0-16.0) g/dl Hct 29.8 L (37.0-47.0) % Plt Count 288 (130-400) K/uL BMP 01/14/25 05:30 Sodium 136 Potassium 3.9 Chloride 104 Carbon Dioxide 27 BUN 10 Creatinine 0.60 Glucose 88 Calcium 8.4 L
[2025-01-14 14:30] VITALS: RESP 18
[2025-01-14] MEDS: BUDESONIDE EC 3 MG CAP PO SCH (15:49)
[2025-01-15 08:28] LABS: Hematocrit (blood only) 33.9 % (37.0-47.0); Hemoglobin 11.6 g/dl (12.0-16.0); Mean Corpuscular Hemoglobin 29.9 pg (25.0-34.0); Mean Corpuscular Hgb Conc 34.2 g/dL (32.0-36.0); Mean Corpuscular Volume 87.4 fL (80.0-100.0); Mean Platelet Volume 8.5 fL (9.4-12.4); Platelet Count 327 K/uL (130-400); RDW Coefficient of Variation 13.2 % (11.5-14.5); RDW Standard Deviation 41.3 fL (36.4-46.3); Red Blood Count 3.88 M/uL (4.20-5.40); White Blood Count 8.15 K/ul (4.8-10.8)
[2025-01-15 08:33] VITALS: BP 114/75; PULSE 73; TEMP 98.1; O2SAT 97
[2025-01-15 08:50] LABS: BUN Creatinine Ratio 19.1 (10-20); Calcium 9.1 mg/dl (8.6-10.3); Creatinine Clr Calc Pharmacy 85.4 ml/min; Potassium 3.9 mmol/L (3.5-5.1)
[2025-01-15 09:09] LABS: Ferritin 65.7 ng/ml (8-388)
[2025-01-15 09:11] LABS: Folate (Folic Acid),Ser orPlas > 22.30 ng/ml (>5.38)
[2025-01-15 09:12] LABS: Vitamin B12 657 pg/ml (180-914)
--- NOTE | 2025-01-15 09:41 | Discharge Summary ---
Discharge Summary Date of Service January 15, 2025 Principal Dx & Hospital Course #1 = Principal Diagnosis (1) Large bowel obstruction: (2) Chronic pericardial effusion: (3) Androgenic alopecia: Plan Patient is a 64-year-old female with past medical history significant for androgenetic alopecia, subclinical hypothyroidism, history of bulimia, history of alcohol abuse, chronic pericardial effusion, history of diverticulitis s/p p artial colectomy (2017), hypermobility syndrome and history of migraines who presented to the ED on 01/13/2025 with abdominal pain/constipation and was found to have a large bowel obstruction. #Large bowel obstruction Admitting CTAP w/ colonic obstruction w/ transition point w/in descending colon Gen surg consulted --> no surgical intervention/signed off Initially requiring NG tube; removed on 01/13 GI consulted and proceeded w/ colonscopy on 01/13 w/ following findings: -Decreased mucosa vascular pattern in sigmoid colon -- biopsied -Mucosal ulceration in descending colon -- biopsied -Multiple ulcers in transverse colon and ascending colon -- biopsied -Left colon with skip areas of ulceration, descending, transverse, and ascending colon most consistent with Crohn's colitis Pathology reviewed; c/w findings of acute colitis, strong suspicion for Crohn's disease No CMV, dysplasia/carcinoma seen on pathology TB testing, hep C antibody/hep Bx antigen negative Fecal calprotectin, hep A/B antibodies still pending Tolerating low fiber diet well Continue MiraLAX daily Started on budesonide per GI Needs o/p GI f/u --> yvonne w/ [facility] #Chronic pericardial effusion Appreciated on CTAP Follows with [employer] cards, last seen 12/24/24 Remains stable --> gets yearly TTEs #Androgenetic alopecia S/p hair transplantation --> pt instructed to go to ED for removal upon d/c Takes finasteride at home per pt #Anemia No s/sx of bleeding Iron panel, vit B12, folate all WNL H/H improved and stable PCP: Stephani Luevano MD Disposition: Pt is being d/c'd home in stable condition w/ close PCP and GI f/u appts Patient seen in collaboration with Dr. Adam. Please see addendum. I spent a total of 50 minutes coordinating, documenting, and providing care for this patient excluding time spent in the performance of separately billed services or time spent by another provider/QHP. This included personally reviewi ng all current laboratories and imaging studies, medical reconciliation, outpatient chart review and discussion with specialists. This chart was completed in part utilizing Speech Voice Recognition Software. Grammatical errors, random word insertions, pronoun errors, and incomplete sentences are an occasional consequence of this system due to software limitations, ambient noise, and hardware issues. Any formal questions or concerns about the content, text, or information contained within the body of this dictation should be directly addressed to the provider for clarification. Notes For Next Care Provider Fecal calprotectin, hepatitis A/B antibodies still pending on discharge. Medication Changes From Visit Budesonide started by GI for suspected Crohn's disease. Daily MiraLAX started by GI. Admission HPI Per Admitting Provider Elena Olmstead is a 64-year-old female with previous medical history of hypermobility syndrome, abnormal LFTs, and road genetic alopecia, diverticulitis/diverticulosis, history of herniation of rectum into vagina, migraine headaches, pericardial effusion. She presents to the ED today with abdominal pain and vomiting. This is her third visit in 24 hours. She reports that "I feel so constipated." She reports she has been taking Colace, mag citrate and has had multiple enemas at home and during her visit in the ER. She reports that she has not passed flatus or had a bowel movement in over 48 hours. She states that she is having significant abdominal pain throughout her lower abdomen. She states she has had nausea and has had dry heaving but states "I have nothing left to throw up." She denies any fevers. She has had multiple abdominal surgeries in the past including salpingo-oophorectomy, hysterectomy, partial colectomy with anastomosis, appendectomy. She initially rated her pain a 10 out of 10. She is feeling better with less pain after intervention in the ED. Surgery has been consulted. Admission, NG tube and bowel rest has been recommended. Admission Exam Per Admitting Provider Constitutional- no fever; no weight loss Eyes- no acute visual changes ENT- no sinus drainage; no pharyngitis Pulmonary- no cough, no wheezing, no shortness of breath Cardiac- no chest pain, no palpitations, no orthopnea, no dependent edema GI-she has nausea, vomiting and severe abdominal pain, no BM or flatus - no dysuria, no hematuria Musculoskeletal- no arthralgias, no myalgias Derm- no rashes, no new skin lesions, no changing skin lesions Hematologic- no unusual bruising, no unusual bleeding Lymphatics- no adenopathy Endocrine- no polyuria or polydipsia; no heat or cold intolerance Neuro- no headaches, no focal neurologic symptoms Psych- no anxiety, no depression Discharge Exam General: Thin F. NAD. Sitting up in bed, pleasant, conversing appropriately. A+Ox3. HEENT: Normocephalic. + evidence of hair transplant, sutures on posterior scalp. Alopecia. External ear and nose normal, oropharynx moist. Respiratory: Normal respiratory effort, lungs clear to auscultation bilaterally. No accessory muscle use. Cardiovascular: Regular rate, rhythm, normal peripheral pulses, no BLE edema. Abdomen/GI: Active bowel sounds, soft but mildly distended. Nontender to palpation in all quadrants. Extremities/MSK: No cyanosis or clubbing, extremities motor strength intact, moves all extremities. Neurologic: No overt focal deficits, CN's II-XI not formally tested but appear grossly intact bilaterally. Updated Medication List Medication Instructions Recorded Confirmed Type dicyclomine 10 mg capsule 10 mg PO TID PRN abdominal pain 01/12/25 01/14/25 Rx #15 caps ondansetron 4 mg disintegrating 4 mg PO Q8H PRN nausea and 01/12/25 01/14/25 Rx tablet vomiting 5 days #15 tabs budesonide 3 mg 9 mg (3 x 3 mg) PO QAM #90 ea 01/15/25 Rx capsule,delayed,extended release polyethylene glycol 3350 17 gram 17 g PO DAILY #30 ea 01/15/25 Rx oral powder packet (Miralax) Hospital Stay Data Consultations 01/12/25 22:36 ED Decision to Admit Stat 01/13/25 01:18 Consult General Surgery Routine 01/13/25 08:18 Consult Gastroenterology Routine Procedures Performed Operation Date: 01/13/25 16:30 Actual Procedures p Colonoscopy Biopsy Cytology - Rafa Arias MD Findings: - The perianal examination was normal. - The mucosa vascular pattern in the sigmoid colon was diffusely decreased. Biopsies were taken with a cold forceps for histology. - Discontinuous areas of bleeding ulcerated mucosa were present in the descending colon. Biopsies were taken with a cold forceps for histology. Estimated blood loss was minimal. - Multiple ulcers were found in the transverse colon and in the ascending colon. No bleeding was present. Biopsies were taken with a cold forceps for histology. Estimated blood loss was minimal. - Ileum could not be entered due to large amount of fecal material occupying the cecum obscuring the lumen of the IC valve Impression: - Ileum could not be entered due to large amount of fecal material occupying the cecum obscuring the lumen of the IC valve - Decreased mucosa vascular pattern in the sigmoid colon. Biopsied. - Mucosal ulceration in the descending colon. Biopsied. - Multiple ulcers in the transverse colon and in the ascending colon. Biopsied. - Featureless left colon with skip areas of ulceration, descending, transverse and ascending colon. Most consistent with Crohn's colitis. Review of her previous 2016 CT scan suggested nonspecific colitis at that time. She had had a resection also which she describes the report is unusual as it was a fibrotic mass. My suspicion is this patient has had underlying inflammatory bowel disease Crohn's colitis types for years. She has now developed relatively narrowing of the descending colon and developed an impaction above this. At this point await biopsies rule out CMV. Rule out potential ischemia though the skip areas make this less probable. MiraLAX to prevent obstruction above the narrowed area. I believe her NG can be removed. Clear liquid diet for now. Diagnostic Imagining Performed 01/12/25 19:44 CT abd pelvis IV con only Stat Pending Results Patient Have Any Pending Studies at Discharge: Yes Discharge Instructions Given to Patient (Per Discharging Provider) Attend your follow-up appointments as scheduled, both with GI and your PCP, which are outlined below: [facility] - MANJINDER Soriano on 01/28/2025 @ 11:30AM [located @ [address] [place] [address], [address], [place], [place]]. PCP - Stephani Luevano MD on 01/20/2025 @ 11:00AM [located @ [facility]]. MEDICATION CHANGES: 1. Continue taking Miralax once daily to allow for daily bowel movements. 2. Budesonide 9mg once a day - started by GI for management of your suspected Crohn's disease. Both of the above medications have been sent to [facility] at [address] [facility], [place], [place]. Please take these medications as prescribed unless otherwise directed by GI. PENDING TEST RESULTS: 1. Stool calprotectin - marker of intestinal inflammation which is commonly elevated in inflammatory bowel disease, such as Crohn's disease. 2. Hepatitis A and B antibodies - routine testing prior to considering the initiation of biologic medications for Crohn's disease management. LIFESTYLE CHANGES: Continue a LOW FIBER diet as directed by GI. You have been provided with handouts regarding this. Seek medical attention if you have: * temperature above 101F * chest pain or trouble breathing * abdominal pain, nausea, vomiting * diarrhea, dark stools or bloody stools * any unanswered questions or concerns Call 911 if symptoms are severe. Please take good care of yourself. It has been a pleasure taking care of you. If you have any questions regarding your recent hospitalization please contact [facility] and request marino Nievesist @ [phone]. Total Time Total Time Spent Total Time Spent (In Minutes): 50 Supervising Physician Co-Signing Physician Notes Patient seen and examined at bedside. Patient doing well today, feels ready to go home. On exam, sitting comfortably, no tenderness to palpation. Patient has new diagnosis of Crohns disease, started on budesonide to begin treatment. Will work on biologic treatment outpatient. Patient tolerating diet well at time of discharge. I have seen and discussed the case with the collaborating advanced practitioner. I agree with the above H&P. I have reviewed and confirmed the patients medical history, the findings on physical examination, and the patients diagnosis and treatment plan with Aziza HARVEY and agree with the information documented. I spent a total of 30 minutes coordinating, documenting, and providing care for this patient excluding time spent in the performance of separately billed services. All of the aforementioned completed outside of collaborating with the assigned advanced practitioner for a full treatment plan. I have reviewed the advanced practitioner's documentation, and I agree with, and take responsibility for the plan of care
--- NOTE | 2025-01-15 09:54 | Gastroenterology Progress Note ---
Date of Service January 15, 2025 Assessment & Plan (1) Large bowel obstruction: Plan: 64 year old female with history of hypermobility syndrome, alopecia, diverticulitis s/p partial colectomy years ago, migraine headaches, pericardial effusion and others below admitted w/ large bowel obstruction S/P colonoscopy w/ skip ulcerations of descending, transverse and ascending colon and relatively narrowing of the descending colon concerning for Crohn's disease - Follow stool calprotectin - Quant gold negative, will need Hepatitis B series - Low residue diet as tolerated - Avoid constipation, Miralax 1 capful 1-2 times daily - Continue Budesonide 9 mg once daily until you establish with GI as outpatient - Plan to start IV Entyvio 300 mg at 0, 2, and 6 weeks and then every 8 weeks thereafter - Risks, benefits, side effects discussed - Will need to sign consent in office - Colonoscopy recall in 3 months given incomplete examination - Recommend to post-pone elective surgical revision - No live vaccinations, Yearly flu shot, Discuss COVID-19, HPV, Shingrix, PPSV 23 and Hep B boosters with PCP Recall GI as needed. I spent a total of 55 minutes on the date of service in review of patient's record, and previously obtained information in person and appropriate medical visit, discussion and education of plan, with patient and/or caregiver, placing orders for tests/referral/procedures as medically necessary and documentation of pertinent clinical information in patient's medical records for their visit today. Admission and Anticipated Discharge Date Admission Date: January 12, 2025 Supervising Physician Co-Signing Physician Notes Biopsies nondiagnostic for inflammatory bowel disease. However it is not suggestive of ischemic colitis. Endoscopic appearance entirely consistent with Crohn's colitis. CMV was negative. At this point I think we should treat this as Crohn's. P.o. steroids. Budesonide potential prednisone if symptoms not improving. I would begin workup for potential Entyvio as a maintenance therapy. She will need a follow-up colonoscopy with terminal ileum intubation. Lets perform this 2 to 3 months after Entyvio so we can evaluate colonic response to the Entyvio and assess the TI at that time. She will follow-up with Oneyda SCHMID. She can return to emergency room if further symptoms. I will continue MiraLAX daily to prevent constipation and impaction above the left colon stricture. Subjective Pt was seen and evaluated, chart reviewed. Requests for discharge today. Feeling better. Less abd pain/bloating. Last BM was yesterday. Remains on Miralax daily. Tolerating low residue dietary advancement. Biopsies reviewed, plan for OP Entyvio discussed. IBD Summary: Crohn's colitis - Onset of symptoms: around 2015 - Date of diagnosis: 2024 - Disease Location: skip ulcerations of descending, transverse and ascending colon and relatively narrowing of the descending colon - IBD surgical hx: s/p partial colectomy around 2015 for suspected diverticular disease - Current therapy: Budesonide 9 mg daily, plan for OP Entyvio - Past therapy: N/A - Colonoscopy recall: 3 months given incomplete examination - Screenings: Needs Hep B series, quant gold negative Stool calprotectin: pending Colonoscopy 2024: Ileum could not be entered due to large amount of fecal material occupying the cecum obscuring the lumen of the IC valve - Decreased mucosa vascular pattern in the sigmoid colon. Biopsied. - Mucosal ulceration in the descending colon. Biopsied. - Multiple ulcers in the transverse colon and in the ascending colon. Biopsied. - Featureless left colon with skip areas of ulceration, descending, transverse and ascending colon. Most consistent with Crohn's colitis. Review of her previous 2016 CT scan suggested nonspecific colitis at that time. She had had a resection also which she describes the report is unusual as it was a fibrotic mass. My suspicion is this patient has had underlying inflammatory bowel disease Crohn's colitis types for years. She has now developed relatively narrowing of the descending colon and developed an impaction above this. At this point await biopsies rule out CMV. Rule out potential ischemia though the skip areas make this less probable. MiraLAX to prevent obstruction above the narrowed area. I believe her NG can be removed. Clear liquid diet for now. Pathology 2024: A. Colon, transverse (biopsy): - Ulcer with fibrinopurulent exudate, mild to focally moderate acute colitis, focal distortion of the glandular architecture and detached strips of fibrinopurulent exudate are all seen. Cryptitis, crypt abscesses and granulomata are all not seen. Dysplasia and carcinoma are not seen. An immunohistochemical stain for the CMV virus is negative. See comment. B. Colon, descending (biopsy):- Edema of the lamina propria, mild to focally moderate acute colitis, maintenance of the glandular architecture, ulcer with fibrinopurulent exudate, and detached strips of fibrinopurulent exudate are all seen. Cryptitis, crypt abscesses and granulomata are all not seen. - Dysplasia and carcinoma are not seen.- An immunohistochemical stain for the CMV virus is negative.- See comment. CJoel Colon, "anastomosis biopsy" (biopsy):- 2 benign strips of colonic mucosa with no pathologic diagnosis are seen.Comment: The strips of colonic mucosa submitted in parts A and B raise the differentialdiagnosis of self-limited/infectious colitis versus inflammatory bowel disease. Ulceration is seen along with edema of the lamina propria. The withered glands of ischemic colitis are not present. The differential diagnosis on microscopy also includes antibiotic-associated colitis but this diagnosis is not supported by review of the electronic medical record. The inclusions of cytomegalovirus are not seen and immunohistochemical stains for this virus on parts A and B are negative. Focal distortion of the glandular architecture is seen in part A, but granulomatous inflammation is not seen in toto. Review of the electronic medical record indicates a colonoscopy revealed colonic ulcers with skip lesions and narrowing of the descending colon favoring Crohn's colitis. Clearly, the colonoscopic findings favor inflammatory bowel disease and clinical correlation is required in terms of the differential Review of Systems Review of Systems: All other findings negative except as noted in HPI. Physical Exam Constitutional: WD/WN, vitals as above Gastrointestinal (Abdomen): Inspection/Auscultation: + abdomen distended and normal bowel sounds Percussion/Palpation: abdomen soft; abdomen nontender, no guarding and abdomen not rigid Skin: no rashes, warm and dry Results & Data Results & Data Vital Signs (Past 12 Hours) Vital Signs Temp Pulse Resp BP Pulse Ox O2 Del Method 01/15/25 08:31 98.1 F 73 18 114/75 97 Room Air Laboratory Results 01/15/25 01/13/25 Range/Units 08:00 16:53 WBC 8.15 (4.8-10.8) K/ul RBC 3.88 L (4.20-5.40) M/uL Hgb 11.6 L (12.0-16.0) g/dl Hct 33.9 L (37.0-47.0) % MCV 87.4 (80.0-100.0) fL MCH 29.9 (25.0-34.0) pg MCHC 34.2 (32.0-36.0) g/dL RDW Std Deviation 41.3 (36.4-46.3) fL RDW Coeff of Christopher 13.2 (11.5-14.5) % Plt Count 327 (130-400) K/uL MPV 8.5 L (9.4-12.4) fL Sodium 136 (136-145) mmol/L Potassium 3.9 (3.5-5.1) mmol/L Chloride 101 (98-107) mmol/L Carbon Dioxide 28 (21-32) mmol/L Anion Gap 7 (3-11) BUN 13 (6-23) mg/dl Creatinine 0.68 (0.6-1.2) mg/dl Est Cr Clr Drug Dosing 85.4 ml/min eGFR 97.80 BUN/Creatinine Ratio 19.1 (10-20) Glucose 94 (70-99(Fasting)) mg/dl Calcium 9.1 (8.6-10.3) mg/dl Iron 87 (35-150) mcg/dl TIBC 308 (250-450) mcg/dl Transferrin 220 (200-360) mg/dl Transferrin % Sat 28 (15-50) % Ferritin 65.7 (8-388) ng/ml Vitamin B12 657 (180-914) pg/ml Folate > 22.30 (>5.38) ng/ml TB Test (QFT) Gold Plus NEGATIVE (Negative) TB Test (QFT) Nil 0.007 IU/mL TB Test (QFT) Mitogen 10.000 IU/mL TB Test (QFT) Ag 1 0.012 IU/mL TB Test (QFT) Ag 2 0.024 IU/mL PG Care Time/CCT Total # of Minutes Spent Total Time Spent with Patient: Total time spent is greater than 50% in coordination of care (as documented) at patient's floor/unit and/or counseling patient: Coding Level of Care Code 34960 SUB INP/OBS CARE 3/50MIN Diagnoses Large bowel obstruction K56.609
[2025-01-15 13:38] LABS: Hepatitis A Antibody IgM NON-REACTIVE (NON-REACTIVE); Hepatitis B Core Antibody IgM NON-REACTIVE (NON-REACTIVE)
== END 2025-01-15 11:24 | disposition home or self-care (01) | DRG 386 ==
LOC: ED 19:15 → SUATTDRO 23:06 → EDINP 23:06 → 3W 01-13 01:19